=== PATIENT | female | born 1975 | race Caucasian/White ===

== ENCOUNTER 2022-09-05 15:21 | Emergency (ER) | payer OTHER, SELFPAY ==
--- NOTE | ~2022-09-05 | CT_ITS ---
EXAMINATION: CT ABDOMEN AND PELVIS WITH CONTRAST CLINICAL INFORMATION: Abdominal pain with increasing size of hernia COMPARISON: None available. TECHNIQUE: Multidetector volumetric images were obtained from the superior aspect of the liver through the pubic symphysis following administration 85 mL of Omnipaque 350 intravenous contrast. Sagittal and coronal reformatted images were obtained on the technologist's workstation. Oral contrast: No This CT examination was performed using dose optimization techniques as appropriate, variously including the following: *Automated exposure control *Adjustment of mA and/or kV according to patient size (this includes techniques or standardized protocols for targeted exams where dose is matched to indication/reason for exam; i.e. extremities or head) *Use of iterative reconstruction technique DLP: 536 mGy-cm FINDINGS: LUNG BASES: Some mosaic groundglass changes are present at the lung bases. Some minimal atelectasis is seen. No suspicious lung nodules or pleural effusions are seen. LIVER, GALLBLADDER, AND BILIARY TREE: The liver is enlarged measuring 20.6 cm in cephalocaudad dimension with decreased attenuation consistent with hepatic steatosis. A tiny benign cysts noted in the left lobe of the liver. No worrisome solid focal hepatic lesion or biliary ductal dilatation is present. The gallbladder is unremarkable with no evidence of radiopaque gallstones, gallbladder wall thickening, or obvious pericholecystic inflammatory changes. PANCREAS: Unremarkable. SPLEEN: Unremarkable. ADRENAL GLANDS: Bilateral adrenal masses are seen measuring 1.9 x 1.7 x 3.0 cm on the left and 1.8 x 1.1 x 1.3 cm on the right. These are indeterminate. KIDNEYS AND URETERS: The kidneys are normal in size, shape, and attenuation. 2 nonobstructing calculi are present in the right upper pole measuring about 2 mm in size each. Two tiny punctate nonobstructing calculi are seen in the left kidney. No hydronephrosis, hydroureter, or ureteral calculi seen. No perinephric stranding. BLADDER: Unremarkable. GASTROINTESTINAL TRACT: There is a midline epigastric/periumbilical hernia present containing a knuckle of transverse colon. No obstruction is seen or evidence of incarceration at this time. There is been prior moderately extensive abdominal wall surgery seen in this region and below. A small bowel anastomosis is present. No evidence of small bowel bowel obstruction. The small and large bowel are otherwise unremarkable. The appendix is not seen but there is no evidence of appendicitis. ABDOMINAL WALL: See discussion above regarding transverse colon LYMPH NODES: No retroperitoneal lymphadenopathy. VASCULAR: Unremarkable. PELVIC VISCERA: The uterus and adnexa are unremarkable. OSSEOUS STRUCTURES: Unremarkable. CT/CT abdomen pelvis w IV con IMPRESSION: 1. Enlarged fatty liver. 2. Bilateral indeterminate adrenal masses. Further evaluation could be performed with an adrenal protocol CT scan. 3. Bilateral nonobstructing renal calculi. 4. Midline epigastric/periumbilical hernia containing a knuckle of transverse colon without evidence of obstruction or incarceration. Fleischner guidelines were followed.
[2022-09-05 16:41] VITALS: BP 128/95; PULSE 94; RESP 16; TEMP 36.6; O2SAT 99; BMI 28.8
--- NOTE | 2022-09-05 16:42 | ED.GENADULT ---
HPI - General Adult General Chief complaint: Abdominal Pain <MARY Lee Last Filed: 09/06/22 12:02> Stated complaint: hernia in abd getting worse <MARY Lee Last Filed: 09/06/22 12:02> Time Seen by Provider: 09/05/22 18:28 <MARY Lee Last Filed: 09/06/22 12:02> Source: patient <MARY Rg Last Filed: 09/05/22 21:19> Mode of arrival: ambulatory <MARY Rg Last Filed: 09/05/22 21:19> Limitations: no limitations <MARY Rg Last Filed: 09/05/22 21:19> History of Present Illness HPI narrative: 46-year-old female history of small-bowel obstruction, umbilical hernia presenting to the emergency department for evaluation of painful umbilical hernia since this morning with associated nausea. Patient reports severe 10/10 pain to the umbilical hernia and it radiates to the left lower quadrant. Patient tells me she is scheduled to get hernia surgery in September at [facility] however was told to go to the emergency room if symptoms worsen beforehand. Patient reports multiple abdominal surgeries in the past. Denies fevers, chills, chest pain, shortness of breath, vomiting, changes in bowel habits or urination, headache, vision changes, dizziness and weakness. <MARY Rg Last Filed: 09/05/22 21:19> Related Data Allergies/adverse reactions: Allergies Allergy/AdvReac Type Severity Reaction Status Date / Time Penicillins [PENICILLINS] Allergy Unknown HIVES Unverified 02/28/20 16:39 tramadol [TRAMADOL] Allergy Unknown VOMITING Unverified 02/28/20 16:39 ibuprofen [IBUPROFEN] AdvReac Unknown NAUSEA & Unverified 02/28/20 16:39 VOMITING <MARY Lee Last Filed: 09/06/22 12:02> Review of Systems Review of Systems: Constitutional : No Weight loss, No Fever, No Chills, No Fatigue, No Malaise ENT/Mouth : No sore throat, No Rhinorrhea Eyes: No Eye Pain, No Swelling, No Redness Cardiovascular : No Chest Pain, No SOB, No Dyspnea on Exertion, No Orthopnea, No Edema, No Palpitations Respiratory : No Cough, No Sputum, No Wheezing Gastrointestinal : No Nausea, No Vomiting, No Diarrhea, No Constipation, + abdominal Pain, No Hematochezia, No Melena Genitourinary : No Dysuria, No Urinary Frequency, No Hematuria, Musculoskeletal : No joint pain, No Myalgias, No Joint Swelling Skin : No Skin Lesions, No rash Neuro : No Weakness, No Numbness, No Dizziness, No Headache Psych : No Anxiety/Panic, No Depression All other systems reviewed and are negative <MARY Rg - Last Filed: 09/05/22 21:19> Yes all other systems are reviewed and are negative <MARY Rg - Last Filed: 09/05/22 21:19> [facility] Past Medical History Attestation statement: The following information was validated with the patient. <MARY Rg - Last Filed: 09/05/22 21:19> Source: old records reviewed and nursing notes reviewed <MARY Rg - Last Filed: 09/05/22 21:19> Social History Social History: Social History Alcohol intake: never Smoked in Last 30 Days: No Use of substances other than those prescribed or required for medical reasons: No Advance Directives: No Advance Directives Information Provided: Yes <MARY Lee - Last Filed: 09/06/22 12:02> Physical Exam ED Vital Signs: Vital Signs - 24 hr 09/05/22 16:41 Temperature 97.9 F Pulse Rate 94 Respiratory Rate 16 Blood Pressure 128/95 H Pulse Oximetry 99 Oxygen Delivery Method Room Air BMI result Body Mass Index 28.8 <MARY Lee - Last Filed: 09/06/22 12:02> Vital Signs - 24 hr 09/05/22 16:41 Temperature 97.9 F Pulse Rate 94 Respiratory Rate 16 Blood Pressure 128/95 H Pulse Oximetry 99 Oxygen Delivery Method Room Air BMI result Body Mass Index 28.8 vss <MARY Rg - Last Filed: 09/05/22 21:19> Appearance: Alert.? Oriented X3.? No acute distress.? Head: Normocephalic, atraumatic, no step-offs or deformities Eyes: Pupils equal, round and reactive to light.? Neck: Normal inspection.? Neck supple.? CVS: Normal heart rate and rhythm.? Pulses normal.? Respiratory: No respiratory distress.? Breath sounds normal.? Abdomen: Soft and.?+ TTP to umbilical hernia, no overlying skin changes. Also tenderness to left lower quadrant. Normoactive bowel sounds. Skin: Skin warm and dry.? Normal skin color.? Normal skin turgor.? Extremities: No lower extremity edema.? No calf ttp. 5/5 strength to bilateral upper and lower extremities Back: No midline tenderness, no C-spine tenderness, full range of motion, no CVA tenderness bilaterally Neuro: Oriented X 3.? No motor deficit.? No sensory deficit. CN 2-12 intact <MARY Rg - Last Filed: 09/05/22 21:19> Course Course Course Narrative: RME: 46 yold female presents to the ED for increase size and pain of abdominal hernia. pmh of SBO and umbilical hernia. [facility] for surgery september 17 but has pain and hernia increased in size so patinet came to ED. abdominal umbilical hernia large in size and tenderness. labs and Abdomen CT scan orderd with IV. Charge nurse Nubia informed next availability for bed so patient can have imaging. labs and imagin ordered <MARY Lee - Last Filed: 09/06/22 12:02> Reevaluation(s) Reevaluation #1: CBC within normal limits. Chemistry unremarkable. HCG negative. Lactic acid normal. Coags within normal limits. CT of the abdomen and pelvis within the large fatty liver. Bilateral indeterminate adrenal masses. Bilateral nonobstructing renal stones. Midline epigastric periumbilical hernia containing a knuckle of transverse colon without evidence of obstruction or incarceration. I was able to reduce the hernia with downward pressure without difficulty. Patient did request pain medicine gave morphine and she is feeling much better. No signs of incarceration or strangulation this does not require immediate surgical intervention. Patient is comfortable and hemodynamically stable will discharge home with outpatient provider follow-up and patient can follow-up with her general surgeon. <MARY Rg - Last Filed: 09/05/22 21:19> Time: 20:41 <MARY Rg - Last Filed: 09/05/22 21:19> Reevaluation #2: Dr. Conti evaluated patient and agrees w/ dx and tx plan. <MARY Rg - Last Filed: 09/05/22 21:19> Time: 21:18 <MARY Rg - Last Filed: 09/05/22 21:19> Medications Administered Discontinued Medications Generic Name Dose Route Start Last Admin Trade Name Freq PRN Reason Stop Dose Admin Iohexol 100 ml 09/05/22 18:56 09/05/22 18:57 Iohexol 350 Mg/Ml 100 Ml Infus..Btl IV 09/05/22 18:57 85 ml ONCE ONE Administration Ketorolac Tromethamine 30 mg 09/05/22 21:17 09/05/22 21:23 Ketorolac Tromethamine 15 Mg/Ml Vial IM 09/05/22 21:18 30 mg ONCE ONE Administration Morphine Sulfate 4 mg 09/05/22 19:44 09/05/22 19:49 Morphine Sulfate 4 Mg/Ml Cartridge IVPUSH 09/05/22 19:45 4 mg ONCE ONE Administration Protocol Ondansetron HCl 4 mg 09/05/22 19:44 09/05/22 19:49 Ondansetron Hcl 4 Mg/2 Ml Vial IVPUSH 09/05/22 19:45 4 mg ONCE ONE Administration <MARY Lee - Last Filed: 09/06/22 12:02> Medications Administered Discontinued Medications Generic Name Dose Route Start Last Admin Trade Name Freq PRN Reason Stop Dose Admin Iohexol 100 ml 09/05/22 18:56 09/05/22 18:57 Iohexol 350 Mg/Ml 100 Ml Infus..Btl IV 09/05/22 18:57 85 ml ONCE ONE Administration Ketorolac Tromethamine 30 mg 09/05/22 21:17 09/05/22 21:23 Ketorolac Tromethamine 15 Mg/Ml Vial IM 09/05/22 21:18 30 mg ONCE ONE Administration Morphine Sulfate 4 mg 09/05/22 19:44 09/05/22 19:49 Morphine Sulfate 4 Mg/Ml Cartridge IVPUSH 09/05/22 19:45 4 mg ONCE ONE Administration Protocol Ondansetron HCl 4 mg 09/05/22 19:44 09/05/22 19:49 Ondansetron Hcl 4 Mg/2 Ml Vial IVPUSH 09/05/22 19:45 4 mg ONCE ONE Administration <MARY Rg - Last Filed: 09/05/22 21:19> Medical Decision Making Medical Decision Making [facility] Narrative: 1836 46-year-old female presents with pain overlying umbilical hernia since this morning with associated nausea. Physical exam significant for TTP to umbilical hernia, no overlying skin changes. Also tenderness to left lower quadrant. Normoactive bowel sounds. Concerns for possible strangulated umbilical hernia. Will rule out diverticulitis and small bowel obstruction. Unlikely that this is an acute abdomen, pancreatitis, cholecystitis or appendicitis. Plan at this time labs, imaging, urine. <MARY Rg - Last Filed: 09/05/22 21:19> Differential Diagnosis Differential Diagnoses: The differential diagnosis associated with the presentation includes <MARY Rg - Last Filed: 09/05/22 21:19> Concerns for possible strangulated umbilical hernia. Will rule out diverticulitis and small bowel obstruction. Unlikely that this is an acute abdomen, pancreatitis, cholecystitis or appendicitis <MARY Rg - Last Filed: 09/05/22 21:19> Admission/Observation Consideration of admission/observation: Escalation of care including admission/observation considered <MARY Rg - Last Filed: 09/05/22 21:19> Unlikely <MARY Rg - Last Filed: 09/05/22 21:19> Lab Data [facility] Lab Attestation statement: I reviewed the patient's lab results. <MARY Rg - Last Filed: 09/05/22 21:19> Result Diagrams: 09/05/22 17:15 09/05/22 17:15 <MARY Lee - Last Filed: 09/06/22 12:02> Labs: Lab Results 09/05/22 09/05/22 09/05/22 Range/Units 17:15 17:15 17:15 WBC 8.9 (4.8-10.8) X10*3/uL RBC 4.73 (4.20-5.50) X10*6/uL Hgb 14.2 (12.0-16.0) g/dl Hct 41.8 (37.0-47.0) % MCV 88.4 (80.0-98.0) fL MCH 30.0 (27.0-33.0) pg MCHC 34.0 (31.0-35.0) g/dl RDW 12.7 (11.0-16.0) % Plt Count 293 (160-400) X10*3/uL MPV 10.5 (9.4-12.3) fL Immature Gran % (Auto) 1.1 H (0.0-0.4) % Neut % (Auto) 58.1 (45-73) % Lymph % (Auto) 29.8 (20-40) % [place] % (Auto) 8.7 (2-11) % Eos % (Auto) 1.3 (0-4) % Baso % (Auto) 1.0 (0-2) % Lymph # (Auto) 2.7 (1.2-4.9) X10*3/uL [place] # (Auto) 0.8 (0.1-1.2) X10*3/uL Eos # (Auto) 0.1 (0.0-0.4) X10*3/uL Baso # (Auto) 0.1 (0.0-0.2) X10*3/uL Abs Immat Gran (auto) 0.10 H (0.00-0.03) X10*3/uL Absolute Neuts (auto) 5.2 (2.0-8.3) x10*3/uL Absolute Nucleated RBC 0.000 (0.0-0.012) X10*3/uL Nucleated RBC % (auto) 0.0 (0.0-0.2) /100WBC PT 11.5 (10.0-13.1) SEC INR 1.0 (0.9-1.1) APTT 29.6 (26.0-36.4) SEC Sodium 136 (135-145) mmol/L Potassium 4.1 (3.3-5.1) mmol/L Chloride 101 (96-108) mmol/L Carbon Dioxide 24 (22-29) mmol/L Anion Gap 15 (12-20) BUN 16 (9-16) mg/dL Creatinine 0.76 (0.5-1.4) mg/dL Estim Creat Clear Calc 94.4 Estimated GFR > 60 Random Glucose 188 H (60-115) mg/dL Lactic Acid (0.5-2.0) mmol/L Calcium 9.9 (8.4-10.2) mg/dL Total Bilirubin 0.6 (0.0-1.0) mg/dL AST 10 (5-31) U/L ALT 9 (0-31) U/L Alkaline Phosphatase 50 (39-117) U/L Total Protein 8.2 H (6.5-8.0) g/dL Albumin 4.8 (3.5-5.0) g/dL Beta HCG, Quant < 2 mIU/mL 09/05/22 Range/Units 17:15 WBC (4.8-10.8) X10*3/uL RBC (4.20-5.50) X10*6/uL Hgb (12.0-16.0) g/dl Hct (37.0-47.0) % MCV (80.0-98.0) fL MCH (27.0-33.0) pg MCHC (31.0-35.0) g/dl RDW (11.0-16.0) % Plt Count (160-400) X10*3/uL MPV (9.4-12.3) fL Immature Gran % (Auto) (0.0-0.4) % Neut % (Auto) (45-73) % Lymph % (Auto) (20-40) % [place] % (Auto) (2-11) % Eos % (Auto) (0-4) % Baso % (Auto) (0-2) % Lymph # (Auto) (1.2-4.9) X10*3/uL [place] # (Auto) (0.1-1.2) X10*3/uL Eos # (Auto) (0.0-0.4) X10*3/uL Baso # (Auto) (0.0-0.2) X10*3/uL Abs Immat Gran (auto) (0.00-0.03) X10*3/uL Absolute Neuts (auto) (2.0-8.3) x10*3/uL Absolute Nucleated RBC (0.0-0.012) X10*3/uL Nucleated RBC % (auto) (0.0-0.2) /100WBC PT (10.0-13.1) SEC INR (0.9-1.1) APTT (26.0-36.4) SEC Sodium (135-145) mmol/L Potassium (3.3-5.1) mmol/L Chloride (96-108) mmol/L Carbon Dioxide (22-29) mmol/L Anion Gap (12-20) BUN (9-16) mg/dL Creatinine (0.5-1.4) mg/dL Estim Creat Clear Calc Estimated GFR Random Glucose (60-115) mg/dL Lactic Acid 1.3 (0.5-2.0) mmol/L Calcium (8.4-10.2) mg/dL Total Bilirubin (0.0-1.0) mg/dL AST (5-31) U/L ALT (0-31) U/L Alkaline Phosphatase (39-117) U/L Total Protein (6.5-8.0) g/dL Albumin (3.5-5.0) g/dL Beta HCG, Quant mIU/mL <MARY Lee - Last Filed: 09/06/22 12:02> Lab Results 09/05/22 09/05/22 09/05/22 Range/Units 17:15 17:15 17:15 WBC 8.9 (4.8-10.8) X10*3/uL RBC 4.73 (4.20-5.50) X10*6/uL Hgb 14.2 (12.0-16.0) g/dl Hct 41.8 (37.0-47.0) % MCV 88.4 (80.0-98.0) fL MCH 30.0 (27.0-33.0) pg MCHC 34.0 (31.0-35.0) g/dl RDW 12.7 (11.0-16.0) % Plt Count 293 (160-400) X10*3/uL MPV 10.5 (9.4-12.3) fL Immature Gran % (Auto) 1.1 H (0.0-0.4) % Neut % (Auto) 58.1 (45-73) % Lymph % (Auto) 29.8 (20-40) % [place] % (Auto) 8.7 (2-11) % Eos % (Auto) 1.3 (0-4) % Baso % (Auto) 1.0 (0-2) % Lymph # (Auto) 2.7 (1.2-4.9) X10*3/uL [place] # (Auto) 0.8 (0.1-1.2) X10*3/uL Eos # (Auto) 0.1 (0.0-0.4) X10*3/uL Baso # (Auto) 0.1 (0.0-0.2) X10*3/uL Abs Immat Gran (auto) 0.10 H (0.00-0.03) X10*3/uL Absolute Neuts (auto) 5.2 (2.0-8.3) x10*3/uL Absolute Nucleated RBC 0.000 (0.0-0.012) X10*3/uL Nucleated RBC % (auto) 0.0 (0.0-0.2) /100WBC PT 11.5 (10.0-13.1) SEC INR 1.0 (0.9-1.1) APTT 29.6 (26.0-36.4) SEC Sodium 136 (135-145) mmol/L Potassium 4.1 (3.3-5.1) mmol/L Chloride 101 (96-108) mmol/L Carbon Dioxide 24 (22-29) mmol/L Anion Gap 15 (12-20) BUN 16 (9-16) mg/dL Creatinine 0.76 (0.5-1.4) mg/dL Estim Creat Clear Calc 94.4 Estimated GFR > 60 Random Glucose 188 H (60-115) mg/dL Lactic Acid (0.5-2.0) mmol/L Calcium 9.9 (8.4-10.2) mg/dL Total Bilirubin 0.6 (0.0-1.0) mg/dL AST 10 (5-31) U/L ALT 9 (0-31) U/L Alkaline Phosphatase 50 (39-117) U/L Total Protein 8.2 H (6.5-8.0) g/dL Albumin 4.8 (3.5-5.0) g/dL Beta HCG, Quant < 2 mIU/mL 09/05/22 Range/Units 17:15 WBC (4.8-10.8) X10*3/uL RBC (4.20-5.50) X10*6/uL Hgb (12.0-16.0) g/dl Hct (37.0-47.0) % MCV (80.0-98.0) fL MCH (27.0-33.0) pg MCHC (31.0-35.0) g/dl RDW (11.0-16.0) % Plt Count (160-400) X10*3/uL MPV (9.4-12.3) fL Immature Gran % (Auto) (0.0-0.4) % Neut % (Auto) (45-73) % Lymph % (Auto) (20-40) % [place] % (Auto) (2-11) % Eos % (Auto) (0-4) % Baso % (Auto) (0-2) % Lymph # (Auto) (1.2-4.9) X10*3/uL [place] # (Auto) (0.1-1.2) X10*3/uL Eos # (Auto) (0.0-0.4) X10*3/uL Baso # (Auto) (0.0-0.2) X10*3/uL Abs Immat Gran (auto) (0.00-0.03) X10*3/uL Absolute Neuts (auto) (2.0-8.3) x10*3/uL Absolute Nucleated RBC (0.0-0.012) X10*3/uL Nucleated RBC % (auto) (0.0-0.2) /100WBC PT (10.0-13.1) SEC INR (0.9-1.1) APTT (26.0-36.4) SEC Sodium (135-145) mmol/L Potassium (3.3-5.1) mmol/L Chloride (96-108) mmol/L Carbon Dioxide (22-29) mmol/L Anion Gap (12-20) BUN (9-16) mg/dL Creatinine (0.5-1.4) mg/dL Estim Creat Clear Calc Estimated GFR Random Glucose (60-115) mg/dL Lactic Acid 1.3 (0.5-2.0) mmol/L Calcium (8.4-10.2) mg/dL Total Bilirubin (0.0-1.0) mg/dL AST (5-31) U/L ALT (0-31) U/L Alkaline Phosphatase (39-117) U/L Total Protein (6.5-8.0) g/dL Albumin (3.5-5.0) g/dL Beta HCG, Quant mIU/mL <MARY Rg - Last Filed: 09/05/22 21:19> Independent Interpretation I performed an independent interpretation of an: CT Scan (CT/CT abdomen pelvis w IV con IMPRESSION: 1. Enlarged fatty liver. 2. Bilateral indeterminate adrenal masses. Further evaluation could be performed with an adrenal protocol CT scan. 3. Bilateral nonobstructing renal calculi. 4. Midline epigastric/periumbilical hernia containing a knuckle of jeff) <MARY Rg - Last Filed: 09/05/22 21:19> Radiology Impression Discussion of test interpretation with radiology: I have reviewed the radiologist's reading. <MARY Rg - Last Filed: 09/05/22 21:19> Core Measures AMI core measures followed: Yes <MARY Rg - Last Filed: 09/05/22 21:19> Measure exclusions: not indicated <MARY Rg - Last Filed: 09/05/22 21:19> Critical Care Time Critical Care Time Critical Care Time: No <MARY Rg - Last Filed: 09/05/22 21:19> Discharge Plan Discharge Clinical Impression: Abdominal pain, Periumbilical hernia, Adrenal mass <MARY Lee Last Filed: 09/06/22 12:02> Patient Disposition: Home, Self-Care <MARY Lee - Last Filed: 09/06/22 12:02> Instructions: Umbilical Hernia (ED), Abdominal Pain (ED), Umbilical Hernia Repair (DC) <MARY Lee Last Filed: 09/06/22 12:02> Additional Instructions: Take your medications as prescribed. If you were prescribed antibiotics today, it is important that you take your medication to their entirety, do not skip any doses, do not finish them early. Follow-up with your primary care provider this week. Please follow-up with your general surgeon. Return to the emergency department with new or worsening symptoms. Such as fevers, chills, chest pain, shortness of breath, nausea, vomiting, dizziness, headache, vision changes, lethargy In case of emergency call 911 CT/CT abdomen pelvis w IV con IMPRESSION: 1. Enlarged fatty liver. 2. Bilateral indeterminate adrenal masses. Further evaluation could be performed with an adrenal protocol CT scan. 3. Bilateral nonobstructing renal calculi. 4. Midline epigastric/periumbilical hernia containing a knuckle of transverse colon without evidence of obstruction or incarceration. Fleischner guidelines were followed. <MARY Lee - Last Filed: 09/06/22 12:02> Referrals: [facility] General [facility]geons [Provider Group] - 2 days Physician,Unknown J [Primary Care Provider] - 2 days <MARY Lee - Last Filed: 09/06/22 12:02> Stand Alone Forms: Work/School Release <MARY Lee - Last Filed: 09/06/22 12:02> Interventions: ED Discharge Assessment Last Done: 09/05/22 21:34 <MARY Lee - Last Filed: 09/06/22 12:02> Discharge Date/Time: 09/05/22 21:36 <MARY Lee - Last Filed: 09/06/22 12:02>
[2022-09-05 17:19] LABS: MANUAL DIFF FLAG NO
--- OUTSIDE RECORDS SUMMARY | 2022-09-05 17:19 | XMS_ITS | Continuity of Care Document ---
Author Name Unknown Organization [facility] Address [address] [place] [id number] Care Team Providers Care Airline Pilot Name Role Phone Simon MON[place], Ericka Mac Primary Care Physician Encounter [facility] Date(s): 02/11/21 - 03/13/21 [facility] [address] [place], [place] [id number] Allergies, Adverse Reactions, Alerts Substance Reaction Severity Status penicillin Hives Active aspirin Very Nauseaus Active Immunizations Given and Recorded Vaccine Date Status Refusal Reason tetanus/diphtheria/pertussis, acel(Tdap) 1 06/13/07 Given 1Admin Note: RECORD Medications barium sulfate 2.1% oral suspension See Instructions, Drink first bottle 6 hours before exam. Drink second bottle 90 minutes before exam, # 2 bottle, 0 Refills, Maintenance, 08/01/15 9:32:48 Start Date: 08/01/15 Status: Ordered CeleXA 20 mg oral tablet 20 mg, 1, tablet, By Mouth, Daily, Refills 0, Maintenance, 01/28/17 10:21:34 Start Date: 01/28/17 Status: Ordered Readi-Cat 2 oral suspension See Instructions, Oral Contrast 2 Bottles 450 ml each Dx: Hernia, # 900 mL, 0 Refills, Maintenance,01/28/17 16:39:44, Oral Contrast; 2 Bottles 450 ml each; Dx: Hernia Start Date: 01/28/17 Status: Ordered Problem List Condition Effective Dates Status Health Status Inform ant Anxiety depression(Confirmed) Active Obesity(Confirmed) Active Seroma(Confirmed) Active Social History Social History Type Response Smoking Status Current every day emilie robins entered on: 08/01/15 Sex
--- OUTSIDE RECORDS SUMMARY | 2022-09-05 17:19 | XMS_ITS | Continuity of Care Document ---
Author Name Unknown Organization [facility] ter Address [address] [place] [id number] Care Team Providers Care Welder Assistant Name Role Phone Not on Staff, PCP Primary Care Physician Unavail able Encounter [facility] Date(s): 08/12/22 - 08/12/[address] [address]- Encounter Diagnosis Ventral hernia(Final) - 08/12/22 Abdominal pain(Final) - 08/12/22 Discharge Disposition: A-D/C AMA Attending Physician: Neli Noland MD Admitting Physician: Neli Noland MD Referring Physician: Not on Staff, Referring MD Allergies, Adverse Reactions, Alerts Substance Reaction Severity Status penicillin Hives Active aspirin Very Nauseaus Active Immunizations Given and Recorded Vaccine Date Status Refusal Reason tetanus/diphtheria/pertussis, acel(Tdap) 1 06/13/07 Given 1Admin Note: RECORD Medications Compression Stockings See Instructions, # 2 each, Maintenance, surgical, knee length 20-30 mm Hg, 12/07/21 10:47:00 EDT, Supply Start Date: 12/07/21 Status: Ordered Dilaudid Inj 0.5 mg, Injection, IV Push Slowly, Every 4 hours, PRN for Pain , Severe, Routine, 08/12/22 4:27:00 EST Start Date: 08/12/22 Stop Date: 08/12/22 Status: Discontinued gabapentin 100 mg oral capsule 200 mg, 2, capsule, By Mouth, 3 times a day, # 60 capsule, Refills 0, Tot. Refills 0, Maintenance, 04/22/22 15:41:00 EST, Route to Pharmacy Electronically, [id number], Partial fill upon patient request if the prescription is for a rex... Start Date: 04/22/22 Stop Date: 05/02/22 Status: Ordered Janumet XR 50 mg-1000 mg oral tablet, extended release 1 tablet, By Mouth, Daily in PM, # 30 tablet, 0 Refills, Maintenance, 10/15/21 11:30:00 EDT, ER Tablet, Partial fill upon patient request if the prescription is for a schedule II opioid drug. Start Date: 10/15/21 Status: Ordered MorPHINE Inj 4 mg, Injection, IV Push Slowly, Every 5 minutes for 3 doses/times, PRN for Pain , Moderate, and SBP greater than 100, Routine, 08/12/22 2:35:00 EST, Stop date Limited # of times Start Date: 08/12/22 Stop Date: 08/12/22 Status: Discontinued topiramate 25 mg oral tablet 0 Refills, Maintenance, 08/12/22 4:20:00 EST, Partial fill upon patient request if the prescriptionis for a schedule II opioid drug. Start Date: 08/12/22 Status: Ordered Problem List Condition Confirmation Course Effective Dates Status Health St atus Informant Anxiety depression Confirmed Active Obesity Confirmed Active Seroma Confirmed Active Results Radiology Reports * Exam Date Time Procedure Performing Provider Status 08/12/22 1:[address] Abd/Pelvis W/ IV Contrast Only Trudy Chavez; Cha (Verified) Notes: (CT Abd/Pelvis W/ IV Contrast Only) Reason For Exam: AP, can't reduce hernia;Other: RESULT: CT Abd/Pelvis W/ IV Contrast Only CT Abd/Pelvis W/ IV Contrast Only INDICATION: Pt reports that she was seen here a few days ago for a hernia and they were able to reduce it, states it recurred yesterday and she has been unable to reduce it at home, pain 9/10. Last BM yesterday, no N V; Clinical Question(s): Obstruction; hernia TECHNIQUE: Spiral CT through the abdomen and pelvis with IV contrast formatted in 3 planes. 100 cc of Omnipaque 300 was administered intravenously. This study was performed without oral contrast. Weight-based protocol using automatic tube modulation was used to optimize exposure parameters. CTDIvol Body: 18.30 mGy, DLP Body: 1012 mGy*cm. COMPARISON: 08/06/2022. FINDINGS: Junior Database Administrator View Findings, Lines and Tubes: None. Visualized Chest: Unchanged mosaic attenuation of the lower lobes. No pleural effusion. The heart is normal in size. No pericardial effusion. Diaphragm: Normal. Liver: Hepatomegaly measuring 19 cm mid clavicular line. Borderline hepatic steatosis. Unchanged subcentimeter hypodensity in the left hepatic lobe, too small to characterize. Gallbladder: No CT evidence of gallbladder pathology. Bile ducts: No biliary ductal dilation. Spleen: Normal. Pancreas: Normal. Adrenal glands: Unchanged bilateral adrenal nodules measuring up to 1.7 cm. Kidneys and ureters: Unchanged bilateral nonobstructing renal calculi measuring up to 0.2 cm in theright upper pole. No hydronephrosis or hydroureter. Bladder: Underdistended. Reproductive organs: Unremarkable CT appearance of the uterus and ovaries. Stomach, small bowel, and large bowel: Unremarkable small bowel anastomotic site in the anterior abdomen. No bowel obstruction. Multiple small bowel loops contain fluid but nondilated, nonspecific. Fecal material within the distal ileum, likely due to an incompetent ileocecal valve. Apparent 1.6 cm polyp in the hepatic flexure of colon. Antimesenteric wall of the transverse colon again protrudes into the midline supraumbilical incisional hernia. Moderate stool burden. Appendix: Normal. Peritoneum and retroperitoneum: Trace fluid in the left adnexa, likely physiologic. Trace mesenteric fluid, nonspecific. No pneumoperitoneum. No omental or mesenteric lesions. Lymph nodes: No enlarged lymph nodes. Blood vessels: Normal. No aneurysm. No evidence of venous thrombosis. Abdominal and pelvic wall: Midline anterior incisional hernia containing antimesenteric wall of thetransverse colon as above above. Hernia neck measures approximately 2.6 x 2.0 cm on current exam. Infraumbilical ventral hernia repair mesh in place. Mild edema around the umbilicus, unchanged Bones: No acute abnormality. IMPRESSION: Recurrent supraumbilical incisional hernia containing antimesenteric wall of the transverse colon (Verma hernia) without evidence of obstruction. Apparent 1.6 cm polyp in the hepatic flexure colon. Correlate with a recent colonoscopy is recommended. Other chronic findings are unchanged as above. I have personally reviewed the images and I agree with this report. WSN: [id number] Ordering Physician: Cesar Wooten Dictated By: Carey Sage DO Dictated Date/Time: 08/12/22 7:56 am Reviewed By: Demian Hall MD Signed By: Demian Hall MD Signed Date/Time: 08/12/22 8:01 am Transcribed By: BEBO Transcribed Date/Time: 08/12/22 4:48 am Vital Signs Most recent to oldest [Reference Range]: 1 2 3 Weight 78 kg (08/12/22 5:27 AM) 78 kg (08/12/22 3:29 AM) 78 kg (08/11/22 9:20 PM) Oxygen Saturation [94-100 %] 95 % (08/12/22 5:27 AM) 98 % (08/12/22 3:29 AM) 98 % (08/12/22 2:00 AM) Pulse Rate [55-90 bpm] 71 bpm (08/12/22 5:27 AM) 79 bpm (08/12/22 3:29 AM) 88 bpm (08/12/22 2:00 AM) Blood Pressure [90-138/55-84 mm Hg] 118/70mm Hg (08/12/22 5:27 AM) 115/69mm Hg (08/12/22 3:29 AM) 121/80mm Hg (08/12/22 2:00 AM) Respiratory Rate [16-30 br/min] 18 br/min (08/12/22 7:06 AM) 20 br/min (08/12/22 5:27 AM) 18 br/min (08/12/22 4:07 AM) Temperature [96.8-100.4 DegF] 98.8 DegF (08/12/22 5:27 AM) 98.8 DegF (08/12/22 3:29 AM) 98.1 DegF (08/12/22 2:00 AM) Mode of Delivery (Oxygen) Room air (08/12/22 5:27 AM) Room air (08/12/22 3:29 AM) Room air (08/12/22 2:00 AM) Blood pressure sites Arm, right (08/12/22 5:27 AM) Arm, right (08/12/22 3:29 AM) Arm, left (08/12/22 2:00 AM) Temperature Route Oral (08/12/22 5:27 AM) Oral (08/12/22 3:29 AM) Oral (08/12/22 2:00 AM) Weight Obtained Via Patient/family state d (08/11/22 9:20 PM) Social History Social History Type Response Smoking Status 5-9 cigarettes (betw een 1/4 to 1/2 pack)/day in last 30 days; Interested in cessation: Yes; Patient wants NRT during admission No entered on: 08/07/22 Sex Admission evaluation note * Rosa Almazan MD: PERFORM Event Display: Admission Note Authored Date: [id number] Patient: ??SABA QUESADA ? Age:??46 Years?Sex:??Female?:??1975?? Chief Complaint Consulting Physician: Dr. Mayorga Consulted Surgeon: Dr. Noland Consulting Reason: Ventral Hernia History of Present Illness Patient is a 46-year-old with a history of anxiety, depression, obesity and diabetes as well as multiple previous abdominal surgeries including 4 C- sections, laparoscopic lysis of adhesions with ventral hernia repair, and most recently in March 2022 exploratory laparotomy and small bowel resection for closed-loop small bowel obstruction. ??Patient was recently??hospitalized with??abdominal painwith CT scan evidence of a??supraumbilical ventral hernia??which she was a??p.o. trialed??and??discharged home with adequate analgesia. ??She represents again today with??2 days of severe??abdominal pain which she describes as intermittent 9/10 sharp??and twisting like??abdominal pain at the ventral hernia site. ??She reports that she has otherwise been tolerating diet without nausea or vomiting and has continued to have regular bowel movements.?However due to worsening abdominal pain she presented to [facility] for further evaluation.?Upon arrival she was noted to be??clinically and hemodynamically normal although she was having excruciating??abdominal pain. ??Laboratorywork-up obtained revealed no leukocytosis with otherwise unremarkable electrolytes and no lactic acidemia. ??She was further worked up??with CT abdomen pelvis which reveals??no significant changes compared to the previous CT scan on 08/06??with the same supraumbilical ventral hernia with??antimesenteric wall of the transverse colon.?? Due to clinical presentation and radiographic findings, acute care surgery was consulted for further evaluation.?? Patient seen and evaluated, appears??clinically well,??pain relatively??better status post??analgesia administration by the ED team.?? She collaborates the above HPI and denies any??chest pain, shortness of breath, fevers or chills.?? On exam, she has a reducible ventral hernia??which is tender to palpation??status post reduction.?? There is palpable approximately 2 cm fascial defect??and no overlying skin changes.?? There is a well-healed??midline incision??scar.?? The rest of the abdomen is soft??nondistended and nontender to palpation.?? Complete physical exam was done and is documented below. Review of Systems Review of system negative except as documented above. Physical Exam Vitals & Measurements T:??98.8?F ?? MS:??79?? RR:??18?? BP:??115/69?? SpO2:??98%?? WT:??78??kg?? Constitutional: Alert, in no distress. Mental Status: Oriented to person, place and time. Head: Normocephalic. Eyes: Pupils are equal, round and reactive to light. Extraocular muscles intact. Ear, Nose and Throat: Oropharynx clear, mucous membranes moist. Ears and nose without masses, lesions or deformities. Trachea midline. Neck: Supple, Full range of motion. Respiratory: Clear to auscultation. No wheezing, rales or rhonchi. Cardiovascular: S1 S2 regular. No murmurs, rubs or gallops. Gastrointestinal: Abdomen is soft, nondistended, notable??reducible ventral hernia??which is tenderto palpation??status post reduction.??There is palpable 2 cm fascial defect??and no overlying skin changes.?? There is a well- healed??midline incision??scar.?? Genitourinary: No costovertebral angle tenderness. Neurologic: Cranial nerves II-XII grossly intact. No focal neurological deficits. Flexor plantar response. Moves all extremities spontaneously. Sensation intact bilaterally. Skin: No rashes or lesions. No petechiae or purpura.?? Musculoskeletal: No cyanosis or clubbing. No gross deformities. Normal range of motion. Heme/Lymphatics/Immun: Palpation of neck reveals no swelling or tenderness of neck nodes. Palpationof groin reveals no swelling or tenderness of groin nodes. Psychiatric: Normal mood and affect Assessment/Plan Patient is a 46-year-old with a history of anxiety, depression, obesity and diabetes as well as multiple previous abdominal surgeries including 4 C- sections, laparoscopic lysis of adhesions with ventral hernia repair, and most recently in March 2022 exploratory laparotomy and small bowel resection for closed-loop small bowel obstruction. ??Patient was recently??hospitalized with??abdominal painwith CT scan evidence of a??supraumbilical ventral hernia??which she was a??p.o. trialed??and??discharged home with adequate analgesia.?? She represented with acute onset abdominal pain??without nausea or vomiting??or signs of obstruction.?? She is clinically and hemodynamically normal, laboratory work-up revealed no leukocytosis with otherwise normal H&H and unremarkable electrolytes.?? No lactic acidemia.?? CT abdomen pelvis obtained??revealed??stable nonobstructive??supraumbilical ventral hernia containing antimesenteric wall of the transverse colon.?? Abdominal exam revealed??reducible??ventral hernia with approximately 2 cm hernia defect, persistently tender to palpation status post reduction. ??There is no overlying skin changes??and no signs of incarceration..?? At this point,??while patient is still early from??her most recent??ex lap, patient has continued to have??symptomatic??ventral hernia??that would likely necessitate??early??hernia repair.?? Patient will be admittedto acute care surgery??service??and will be made n.p.o.??with IV fluids??with plans to discuss in the morning for??possible??operative intervention??during this admission. ?? Plan Admit to EGS N.p.o. with IV fluids Adequate pain control Antiemetics as needed Insulin sliding scale Resume home medication Discussed??in a.m. for possible??VHR??open versus laparoscopic DVT prophylaxis I-S OOB ?? Discussed with attending surgeon Dr. Noland [facility] #[id number] ?? This note was accomplished using [employer] software. Despite my efforts at performing a careful andaccurate dictation, this program is prone to speech recognition errors which may result in inaccurate documentation. If clinical questions should arise, please feel free to contact me.? Problem List/Past Medical History Ongoing Anxiety depression Obesity Seroma Historical Obese class I Procedure/Surgical History Enterectomy, resection of small intestine; single resection and anastomosis: 04/10/22 Exploratory laparotomy, exploratory celiotomy with or without biopsy(s) (separate procedure): 04/10/22 delivery & tubal ligation: 2008 delivery only;: 2004 delivery only;: 2002 delivery only;: 1998 Laparoscopic-assisted CECY, incisional hernia repair with mesh, pfannenstiel incision for open CECY Home Medications Durable Medical Equipment: See Instructions, surgical, knee length 20-30 mm Hg Gabapentin: 200 mg = 2 capsule, By Mouth, 3 times a day metformin-sitagliptin: 1 tablet, By Mouth, Daily in PM Allergies aspirin??(Very Nauseaus) penicillin??(Hives) Social History Alcohol Use: Never., 08/07/2022 Use: Never., 01/28/2017 Substance Abuse Use: Never., 08/07/2022 Use: Never., 01/28/2017 Tobacco Use: 5-9 cigarettes (between 1/4 to 1/2 pack)/day in last 30 days. Interested in cessation: Yes. No, 08/07/2022 Current every day smoker, 08/01/2015 Family History Mother: Alcoholism; Bipolar disorder Father: Bipolar disorder Lab Results Labs Last 24 Hours BLOOD COUNT & DIFF ? Event Name?? Event Result?? Date/Time?? WBC 9.4 k/mm3 08/12/22 00:45:00 RBC 4.23 m/mm3 08/12/22 00:45:00 Hgb 12.7 Gm/dL 08/12/22 00:45:00 Hct 38.2 % 08/12/22 00:45:00 MCV 90.3 femtoliters 08/12/22 00:45:00 MCH 30 pg 08/12/22 00:45:00 MCHC 33.2 g/dL 08/12/22 00:45:00 Platelet Count 259 k/mm3 08/12/22 00:45:00 MPV 10.8 femtoliters 08/12/22 00:45:00 Nucleated RBC (Automated) 0 #/100 WBC'S 08/12/22 00:45:00 ? CHEM GENERAL ? Event Name?? Event Result?? Date/Time?? Sodium 135 mmol/L 08/12/22 00:26:00 Chloride 100 mmol/L 08/12/22 00:26:00 Bicarbonate Level 24 mmol/L 08/12/22 00:26:00 Anion Gap 11 08/12/22 00:26:00 Glucose Level 189 mg/dL??High 08/12/22 00:26:00 BUN 15 mg/dL 08/12/22 00:26:00 Creatinine-Blood 0.7 mg/dL 08/12/22 00:26:00 Alkaline Phosphatase 55 units/L 08/12/22 00:26:00 AST (SGOT) 13 units/L 08/12/22 00:26:00 ALT (SGPT) 9 units/L 08/12/22 00:26:00 Bilirubin, Total 0.2 mg/dL 08/12/22 00:26:00 ? Note * Jose MONTANA, Oriana Phelan: PERFORM Event Display: Discharge/Transfer Note Hospital Authored Date: Patient: ??SABA QUESADA ? Age:??46 Years?Sex:??Female?:??1975?? Admit Date Admission Date: 08/12/2022 Discharge Date 08/12/2022 Discharge Diagnoses Abdominal pain, 08/12/2022 Abdominal pain, 08/12/2022 Ventral hernia, 08/12/2022 Hospital Course In summary, Patient is a 46-year-old with a history of anxiety, depression, obesity and diabetes aswell as multiple previous abdominal surgeries including 4 C-sections, laparoscopic lysis of adhesions with ventral hernia repair, and most recently in March 2022 exploratory laparotomy and small bowel resection for closed-loop small bowel obstruction. ??Patient was recently??hospitalized with??abdominal pain with CT scan evidence of a??supraumbilical ventral hernia??which she was a??p.o. trialed??and??discharged home with adequate analgesia.?? She represented with acute onset abdominal pain??without nausea or vomiting??or signs of obstruction.?? She is clinically and hemodynamically normal,laboratory work-up revealed no leukocytosis with otherwise normal H&H and unremarkable electrolytes.?? No lactic acidemia.?? CT abdomen pelvis obtained??revealed??stable nonobstructive??supraumbilical ventral hernia containing antimesenteric wall of the transverse colon.?? Abdominal exam reveale d??reducible??ventral hernia with approximately 2 cm hernia defect, persistently tender to palpation status post reduction. ??There is no overlying skin changes??and no signs of incarceration..?? At this point,??while patient is still early from??her most recent??ex lap, patient has continued to hav e??symptomatic??ventral hernia??that would likely necessitate??early??hernia repair.?? Patient willbe admitted to acute care surgery??service??and will be made n.p.o.??with IV fluids??with plans to discuss in the morning for??possible??operative intervention??during this admission. Unfortunately, a fter being re-evaluated this morning, the patient decided to leave [place]. Objective/Physical Exam on Day of Discharge Vitals & Measurements T:??98.8?F ?? MS:??71?? RR:??18?? BP:??118/70?? SpO2:??95%?? WT:??78??kg?? General: Speaking in full sentences and in no apparent distress HEENT: Normocephalic and atraumatic Eyes: EOM, no drainage, no redness Ears: Symmetrical, no drainage Nose: Nares patent, no drainage Neck: Soft and supple, trachea midline Resp: CTA, no wheezes, no rales Cardiac: RRR, no m/g/r,?? Abdomen/ GI: softly distended, tender to umbilical region. active bowel sounds all 4 quadrants. Extremities: No edema Neurologic: alert and oriented?3. Speech is fluent. No facial droop. Intact cranial nerves II-XII; Muscle strength 5/5 in all extremities. Intact gross sensation Psychiatric: Appropriate affect and mood. Able to engage in conversation appropriately Skin: warm pale and dry?? Future Appointments Tuesday 9:20 AM EDT ?? With: Sandee MATRINEZ, Juan Diego Mcfadden Where: [facility] [address] [place] [address]- Patient Discharge Condition same as presentation Discharge Disposition Pt left AMA Procedures Performed This Visit none Inpatient Medications Medications (11) Active SCHEDULED: (5) Acetaminophen 325 mg Tablet (Tylenol 325 mg oral tablet) ??650 mg, By Mouth, Every 6 hours Docusate Sodium 100 mg Capsule (Docusate Sodium Capsule) ??100 mg 1 capsule, By Mouth, 2 times a day Heparin 5000 units/mL Inj (1 mL) (Heparin Inj) ??5,000 units 1 mL, Subcutaneous Injection, 3 times a day Insulin Lispro 100 units/mL Inj (3mL) (Insulin LISPRO Sliding Scale) ??2-10 units, Subcutaneous Injection, 3 times a day before meals Topiramate 25 mg Tablet (Topamax Tablet) ??25 mg, By Mouth, Daily at bedtime CONTINUOUS: (1) Lactated Ringers (1000 mL) Cont IV 1,000 mL (LR 1,000 mL) ??1,000 mL, IV Infusion, 125 mL/hr PRN: (5) Bisacodyl 10 mg Suppository (Bisacodyl Supp) ??10 mg 1 supp, Rectally, Daily HYDROmorphone 0.5 mg/0.5 mL Inj Syringe (Dilaudid Inj) ??0.5 mg 0.5 mL, IV Push Slowly, Every 4 hours MorPHINE 4 mg Inj Syringe (MorPHINE Inj) ??4 mg, IV Push Slowly, Every 5 minutes Ondansetron 2mg/mL Inj (2mL Vial) (Ondansetron Inj) ??4 mg, IV Push, Every 8 hours OxyCODONE 5 mg IR Tablet (oxyCODONE 5 mg oral tablet) ??5 mg, By Mouth, Every 6 hours Discharge Medications Durable Medical Equipment (Compression Stockings)?See Instructions?surgical, knee length 20-30 mm Hg Gabapentin (gabapentin 100 mg oral capsule)?200?Milligram?2?capsule?By Mouth?3 times a day?for 10?Days metformin-sitagliptin (Janumet XR 50 mg-1000 mg oral tablet, extended release)?1?tab(s)?ByMouth?Daily in PM Labs Last 24 Hours BLOOD COUNT & DIFF ? Event Name?? Event Result?? Date/Time?? WBC 9.4 k/mm3 08/12/22 00:45:00 RBC 4.23 m/mm3 08/12/22 00:45:00 Hgb 12.7 Gm/dL 08/12/22 00:45:00 Hct 38.2 % 08/12/22 00:45:00 MCV 90.3 femtoliters 08/12/22 00:45:00 MCH 30 pg 08/12/22 00:45:00 MCHC 33.2 g/dL 08/12/22 00:45:00 Platelet Count 259 k/mm3 08/12/22 00:45:00 MPV 10.8 femtoliters 08/12/22 00:45:00 Nucleated RBC (Automated) 0 #/100 WBC'S 08/12/22 00:45:00 ? CHEM GENERAL ? Event Name?? Event Result?? Date/Time?? Sodium 135 mmol/L 08/12/22 00:26:00 Chloride 100 mmol/L 08/12/22 00:26:00 Bicarbonate Level 24 mmol/L 08/12/22 00:26:00 Anion Gap 11 08/12/22 00:26:00 Glucose Level 189 mg/dL??High 08/12/22 00:26:00 BUN 15 mg/dL 08/12/22 00:26:00 Creatinine-Blood 0.7 mg/dL 08/12/22 00:26:00 Alkaline Phosphatase 55 units/L 08/12/22 00:26:00 AST (SGOT) 13 units/L 08/12/22 00:26:00 ALT (SGPT) 9 units/L 08/12/22 00:26:00 Bilirubin, Total 0.2 mg/dL 08/12/22 00:26:00 ? CT Abdomen and Pelvis W contrast IV * [facility] , CIS S: TRANSCRIBE Demian Hall MD B: VERIFY Carey Sage DO P: SIGN Event Display: Result: Authored Date: [id number] CT Abd/Pelvis W/ IV Contrast Only INDICATION: Pt reports that she was seen here a few days ago for a hernia and they were able to reduce it, states it recurred yesterday and she has been unable to reduce it at home, pain 02/20. Last BM yesterday, no N V; Clinical Question(s): Obstruction; hernia TECHNIQUE: Spiral CT through the abdomen and pelvis with IV contrast formatted in 3 planes. 100 cc of Omnipaque 300 was administered intravenously. This study was performed without oral contrast. Weight-based protocol using automatic tube modulation was used to optimize exposure parameters. CTDIvol Body: 18.30 mGy, DLP Body: 1012 mGy*cm. COMPARISON: 08/06/2022. FINDINGS: Junior Database Administrator View Findings, Lines and Tubes: None. Visualized Chest: Unchanged mosaic attenuation of the lower lobes. No pleural effusion. The heart is normal in size. No pericardial effusion. Diaphragm: Normal. Liver: Hepatomegaly measuring 19 cm mid clavicular line. Borderline hepatic steatosis. Unchanged subcentimeter hypodensity in the left hepatic lobe, too small to characterize. Gallbladder: No CT evidence of gallbladder pathology. Bile ducts: No biliary ductal dilation. Spleen: Normal. Pancreas: Normal. Adrenal glands: Unchanged bilateral adrenal nodules measuring up to 1.7 cm. Kidneys and ureters: Unchanged bilateral nonobstructing renal calculi measuring up to 0.2 cm in theright upper pole. No hydronephrosis or hydroureter. Bladder: Underdistended. Reproductive organs: Unremarkable CT appearance of the uterus and ovaries. Stomach, small bowel, and large bowel: Unremarkable small bowel anastomotic site in the anterior abdomen. No bowel obstruction. Multiple small bowel loops contain fluid but nondilated, nonspecific. Fecal material within the distal ileum, likely due to an incompetent ileocecal valve. Apparent 1.6 cm polyp in the hepatic flexure of colon. Antimesenteric wall of the transverse colon again protrudes into the midline supraumbilical incisional hernia. Moderate stool burden. Appendix: Normal. Peritoneum and retroperitoneum: Trace fluid in the left adnexa, likely physiologic. Trace mesenteric fluid, nonspecific. No pneumoperitoneum. No omental or mesenteric lesions. Lymph nodes: No enlarged lymph nodes. Blood vessels: Normal. No aneurysm. No evidence of venous thrombosis. Abdominal and pelvic wall: Midline anterior incisional hernia containing antimesenteric wall of thetransverse colon as above above. Hernia neck measures approximately 2.6 x 2.0 cm on current exam. Infraumbilical ventral hernia repair mesh in place. Mild edema around the umbilicus, unchanged Bones: No acute abnormality. IMPRESSION: Recurrent supraumbilical incisional hernia containing antimesenteric wall of the transverse colon (Verma hernia) without evidence of obstruction. Apparent 1.6 cm polyp in the hepatic flexure colon. Correlate with a recent colonoscopy is recommended. Other chronic findings are unchanged as above. I have personally reviewed the images and I agree with this report. WSN: [id number] Ordering Physician: Cesar Wooten Dictated By: Carey Sage DO Dictated Date/Time: 08/12/22 7:56 am Reviewed By: Demian Hall MD Signed By: Demian Hall MD Signed Date/Time: 08/12/22 8:01 am Transcribed By: BEBO Transcribed Date/Time: 08/12/22 4:48 am Patient Care team information Care Team Personnel Name: Jodee Staton RN Position: [facility] RN Member Role: Primary Care Nurse Name: Rachana Arroyo RN Position: [facility] RN Member Role: Primary Care Nurse Name: Saba Pool Position: [facility] Outreach Member Role: Lifetime Consulting Physician Name: Cecilia Damon RN Position: [facility] RN Member Role: Primary Care Nurse Name: Jimena Sanchez RN Position: [facility] RN Member Role: Primary Care Nurse Name: Tressa Bahena RN Position: [facility] RN Member Role: Primary Care Nurse Name: Jeannette Ribera RN Position: [facility] RN Member Role: Primary Care Nurse Name: Not on Staff, PCP Position: [facility] Physician (General Medicine) Member Role: PCP Name: YenniKerry Andersen Attending Position: [facility] ED Medicine Name: Yecenia Rodgers RN Position: [facility] ED RN W/OE and Tasks Member Role: Patient Care Provider Name: Mireille Sumner Position: [facility] ED [facility] Care Team Related Persons Name: CHAPO FLOWER Address: [place] [address] Name: MARISELA HURLEY Address: [place] [address]
--- OUTSIDE RECORDS SUMMARY | 2022-09-05 17:19 | XMS_ITS | Continuity of Care Document ---
Author Name Unknown Organization [facility] Address [address] [place] [address]- Care Team Providers Care Wedding Decorator Name Role Phone Michael Ibrahim MD Primary Care Physician [place] [facility] [place] [id number] Date(s): 10/15/21 - 11/22/21 [facility] [address] [place] [address]- Attending Physician: Sparkle MARTINEZ, Surinder Sloan Admitting Physician: Surinder Villagran MD Referring Physician: Michael Ibrahim MD Allergies, Adverse Reactions, Alerts Substance Reaction Severity Status penicillin Hives Active aspirin Very Nauseaus Active Immunizations Given and Recorded Vaccine Date Status Refusal Reason tetanus/diphtheria/pertussis, acel(Tdap) 1 06/13/07 Given 1Admin Note: RECORD Medications Janumet XR 50 mg-1000 mg oral tablet, extended release 1 tablet, By Mouth, Daily in PM, # 30 tablet, 0 Refills, Maintenance, 10/15/21 11:30:00 EDT, ER Tablet, Partial fill upon patient request if the prescription is for a schedule II opioid drug. Start Date: 10/15/21 Status: Ordered Problem List Condition Effective Dates Status Health Status Inform ant Anxiety depression(Confirmed) Active Obesity(Confirmed) Active Seroma(Confirmed) Active Social History Social History Type Response Smoking Status Current every day emilie robins entered on: 08/01/15 Sex
--- OUTSIDE RECORDS SUMMARY | 2022-09-05 17:19 | XMS_ITS | Continuity of Care Document ---
Author Name Unknown Organization [facility] ter Address [address] [place] [address]- Care Team Providers Care Project Drilling Engineer Name Role Phone Michael Ibrahim MD [id number] - 08[facility]/[address] [address]- Encounter Diagnosis Abdominal pain(Final) - 08/19/22 Discharge Disposition: A-D/C Home Attending Physician: Cecelia Reyes MD Admitting Physician: Cecelia Reyes MD Referring Physician: Not on Staff, Referring [...] EDT, Supply Start Date: 12/07/21 Status: Ordered gabapentin 100 mg oral capsule 200 mg, 2, capsule, By Mouth, 3 times a day, # 60 capsule, Refills 0, Tot. Refills 0, Maintenance, 04/22/22 15:41:00 EST, Route to Pharmacy Electronically, [id number], Partial fill upon patient request if the [...] opioid drug. Start Date: 10/15/21 Status: Ordered morphine 15 mg oral tablet, immediate release 1 tablet = 15 mg, By Mouth, Every 4 hours, PRN as needed for pain, # 10 tablet, 0 Refills, Acute 08/24/22 12:00:00 EDT, 08/19/22 13:57:00 EST, Tablet, [facility] #[id number], Partial fill upon patient request if the prescription is for a schedule... Start Date: 08/19/22 Stop Date: 08/24/22 Status: Ordered MorPHINE Inj 4 mg, Injection, IV Push Slowly, Every 5 minutes for 3 doses/times, PRN for Pain , Moderate, and SBP greater than 100, Routine, 08/19/22 9:58:00 EST, Stop date Limited # of times Start Date: 08/19/22 Stop Date: 08/19/22 Status: Discontinued topiramate 25 mg oral tablet 0 Refills, Maintenance, 08/12/22 4:20:00 EST, Partial fill upon patient request if the prescriptionis for a schedule II opioid drug. Start Date: 08/12/22 Status: Ordered Problem List Condition Confirmation Course Effective Dates Status Health St atus Informant Anxiety depression Confirmed Active Obesity Confirmed Active Seroma Confirmed Active Vital Signs Most recent to oldest [Reference Range]: 1 2 3 Oxygen Saturation [94-100 %] 100 % (08/19/22 12:24 PM) 100 % (08/19/22 10:23 AM) 100 % (08/19/22 8:19 AM) Pulse Rate [55-90 bpm] 68 bpm (08/19/22 12:24 PM) 76 bpm (08/19/22 10:23 AM) 84 bpm (08/19/22 8:19 AM) Blood Pressure [90-138/55-84 mm Hg] 110/70mm Hg (08/19/22 12:24 PM) 119/72mm Hg (08/19/22 10:23 AM) 125/71mm Hg (08/19/22 8:19 AM) Respiratory Rate [16-30 br/min] 17 br/min (08/19/22 12:24 PM) 18 br/min (08/19/22 12:00 PM) 18 br/min (08/19/22 11:30 AM) Temperature [96.8-100.4 DegF] 98.6 DegF (08/19/22 12:24 PM) 97.9 DegF (08/19/22 10:23 AM) 98.0 DegF (08/19/22 8:19 AM) Mode of Delivery (Oxygen) Room air (08/19/22 12:24 PM) Room air (08/19/22 10:23 AM) Room air (08/19/22 8:19 AM) Blood pressure sites Arm, left (08/19/22 12:24 PM) Arm, left (08/19/22 10:23 AM) Arm, left (08/19/22 8:19 AM) Temperature Route Oral (08/19/22 12:24 PM) Oral (08/19/22 10:23 AM) Oral (08/19/22 8:19 AM) Social History Social History Type Response Smoking Status 5-9 cigarettes (betw een 1/4 to 1/2 pack)/day in last 30 days; Interested in cessation: Yes; Patient wants NRT during admission No entered on: 08/07/22 Sex Consult note * Rodrigo Rodriguez MD: PERFORM Event Display: Consult Authored Date: [id number] Patient: ??SABA QUESADA ? Age:??46 Years?Sex:??Female?:??1975?? History of Present Illness Patient is a [...] a??p.o. trialed??and??discharged home with adequate analgesia. ??She represented 2/3??with??2 days of severe??abdominal pain which she describes as intermittent 9/10 sharp??and twisting like??abdominal pain at the ventral hernia site.?At that time the patient was offered repair but because she could not go for surgery thesame day she left against medical advice with instruction to follow up in the surgical clinic for elective repair planing. She represents again today for the same abdominal pain. ??Denies fever/chills, CP/SOB, Nausea/vomiting.?Electrolytes and CBC were all normal, aside from a slightly elevated lactate. Surgery was consulted for evaluation Review of Systems Constitutional: No weight loss, fever, chills, weakness or fatigue. Eyes: No visual loss, blurred vision, double vision?? ENT: No hearing loss, sneezing, congestion, runny nose or sore throat. Respiratory: No shortness of breath, cough Cardiovascular: No chest pain, chest pressure or chest discomfort. Gastrointestinal: as per HPI. Genitourinary: No burning micturition. No urinary frequency or incontinence. Neurologic: No headache, dizziness, syncope, unilateral weakness. Musculoskeletal: No muscle pain, back pain, joint pain or stiffness. Skin: No rash or itching. Psychiatric: No depression or anxiety.?? Physical Exam Vitals & Measurements T:??97.9?F ?? ND:??76?? RR:??17?? BP:??119/72?? SpO2:??100%?? Constitutional: Awake, alert and resting in bed on arrival.?? Mental Status: Oriented to person, place and time. HEENT:??Normocephalic, atraumatic. Extraocular muscles intact. Mucous membranes moist. Trachea midline. Respiratory: Normal work of breathing. Cardiovascular: Regular rate and rhythm.?? Gastrointestinal: Abdomen soft,??none distended and??non tender. No rebound tenderness, guarding orperitonitis. Supraumbilical hernia palpated with roughly 2cm defect??with free fascial edges and small bit of fat on the inferior border of the defect but hernia feels completely reduced. ?? Neurologic: No focal neurological deficits. Moves all extremities spontaneously. Sensation intact bilaterally. Skin: Warm and well perfused. No rashes or lesions. No petechiae or purpura. Musculoskeletal: No cyanosis or clubbing. No gross deformities. Normal range of motion. Psychiatric: Normal mood and affect. Assessment/Plan Patient is a 46-year-old with a history of anxiety, depression, obesity and diabetes as well as multiple previous abdominal surgeries including 4 C- sections, laparoscopic lysis of adhesions with ventral hernia repair, and most recently in March 2022 exploratory laparotomy and small bowel resection for closed-loop small bowel obstruction. Presenting multiple times to the hospital and leaving AMAthe last time she was here. On exam there is no concern for incarcerated hernia and labs and vitalsare all normal. Patient was told to follow up at her scheduled appointment on the at the surgical clinic for elective repair. No acute surgical intervention needed. ?? Case discussed with Dr. Barnes. [place] [id number] Problem List/Past Medical History Ongoing Anxiety depression [...] 1 tablet, By Mouth, Daily in PM Topiramate Allergies aspirin??(Very Nauseaus) penicillin??(Hives) Social History Alcohol Use: Never., 08/07/2022 Use: Never., 01/28/2017 Substance Abuse Use: Never., 08/07/2022 Use: Never., 01/28/2017 Tobacco Use: 5-9 cigarettes (between 1/4 to 1/2 pack)/day in last 30 days. Interested in cessation: Yes. No, 08/07/2022 Current every day smoker, 08/01/2015 Family History Mother: Alcoholism; Bipolar disorder Father: Bipolar disorder Radiology RESULT: CT Abd/Pelvis W/ IV Contrast Only CT Abd/Pelvis W/ IV Contrast Only? INDICATION: Pt reports that she was seen here a few days ago for a hernia and they were able to reduce it, states it recurred yesterday and she has been unable to reduce it at home, pain 02/20. Last BM yesterday, no N V; Clinical Question(s): Obstruction; hernia ?? TECHNIQUE: Spiral CT through the abdomen and pelvis with IV contrast formatted in 3 planes. 100 cc of Omnipaque 300 was administered intravenously. This study was performed without oral contrast. Weight-based protocol using automatic tube modulation was used to optimize exposure parameters.? CTDIvol Body: 18.30 mGy, ??DLP Body: 1012 mGy*cm. ? COMPARISON: 08/06/2022. ?? FINDINGS:? Planning Coordinator View Findings, Lines and Tubes: None. ?? Visualized Chest: Unchanged mosaic attenuation of the lower lobes. No pleural effusion. The heart is normal in size. No pericardial effusion. ?? Diaphragm: Normal. ?? Liver: Hepatomegaly measuring 19 cm mid clavicular line. Borderline hepatic steatosis. Unchanged subcentimeter hypodensity in the left hepatic lobe, too small to characterize. ?? Gallbladder: No CT evidence of gallbladder pathology. ?? Bile ducts: No biliary ductal dilation. ?? Spleen: Normal. ?? Pancreas: Normal. ?? Adrenal glands: Unchanged bilateral adrenal nodules measuring up to 1.7 cm. ?? Kidneys and ureters: Unchanged bilateral nonobstructing renal calculi measuring up to 0.2 cm in theright upper pole. No hydronephrosis or hydroureter. ?? Bladder: Underdistended. ?? Reproductive organs: Unremarkable CT appearance of the uterus and ovaries. ?? Stomach, small bowel, and large bowel: Unremarkable small bowel anastomotic site in the anterior abdomen. No bowel obstruction. Multiple small bowel loops contain fluid but nondilated, nonspecific. Fecal material within the distal ileum, likely due to an incompetent ileocecal valve. ?? Apparent 1.6 cm polyp in the hepatic flexure of colon. Antimesenteric wall of the transverse colon again protrudes into the midline supraumbilical incisional hernia. Moderate stool burden. ?? Appendix: Normal. ?? Peritoneum and retroperitoneum: Trace fluid in the left adnexa, likely physiologic. Trace mesenteric fluid, nonspecific. No pneumoperitoneum. No omental or mesenteric lesions. ?? Lymph nodes: No enlarged lymph nodes. ?? Blood vessels: Normal. No aneurysm. No evidence of venous thrombosis. ?? Abdominal and pelvic wall: Midline anterior incisional hernia containing antimesenteric wall of thetransverse colon as above above. Hernia neck measures approximately 2.6 x 2.0 cm on current exam. Infraumbilical ventral hernia repair mesh in place. Mild edema around the umbilicus, unchanged ?? Bones: No acute abnormality. ?? IMPRESSION:? Recurrent supraumbilical incisional hernia containing antimesenteric wall of the transverse colon (Verma hernia) without evidence of obstruction. ?? Apparent 1.6 cm polyp in the hepatic flexure colon. Correlate with a recent colonoscopy is recommended. ?? Other chronic findings are unchanged as above. Lab Results Labs Last 24 Hours BLOOD COUNT & DIFF ? Event Name?? Event Result?? Date/Time?? WBC 8.3 k/mm3 08/19/22 00:34:00 RBC 4.25 m/mm3 08/19/22 00:34:00 Hgb 12.8 Gm/dL 08/19/22 00:34:00 Hct 38.2 % 08/19/22 00:34:00 MCV 89.9 femtoliters 08/19/22 00:34:00 MCH 30.1 pg 08/19/22 00:34:00 MCHC 33.5 g/dL 08/19/22 00:34:00 Platelet Count 312 k/mm3 08/19/22 00:34:00 MPV 10.6 femtoliters 08/19/22 00:34:00 Nucleated RBC (Automated) 0 #/100 WBC'S 08/19/22 00:34:00 ? CHEM GENERAL ? Event Name?? Event Result?? Date/Time?? Sodium 136 mmol/L 08/19/22 00:34:00 Chloride 99 mmol/L 08/19/22 00:34:00 Bicarbonate Level 27 mmol/L 08/19/22 00:34:00 Anion Gap 10 08/19/22 00:34:00 Glucose Level 193 mg/dL??High 08/19/22 00:34:00 BUN 14 mg/dL 08/19/22 00:34:00 Creatinine-Blood 0.7 mg/dL 08/19/22 00:34:00 Alkaline Phosphatase 58 units/L 08/19/22 00:34:00 Lipase 30 units/L 08/19/22 00:34:00 AST (SGOT) 12 units/L 08/19/22 00:34:00 ALT (SGPT) 11 units/L 08/19/22 00:34:00 Bilirubin, Total <0.2 08/19/22 00:34:00 ? Patient Care team information Care Team Personnel Name: Jodee Staton RN Position: [facility] RN Member Role: Primary Care Nurse Name: Rachana Arroyo RN Position: [facility] RN Member Role: Primary Care Nurse Name: Saba Pool Position: [facility] Outreach Member Role: Lifetime Consulting Physician Name: Cecilia Damon RN Position: [facility] RN Member Role: Primary Care Nurse Name: Jimena Sanchez RN Position: [facility] RN Member Role: Primary Care Nurse Name: Tressa Bahena RN Position: [facility] RN Member Role: Primary Care Nurse Name: Jeannette Ribera RN Position: [facility] RN Member Role: Primary Care Nurse Name: Michael Ibrahim MD Position: [facility] Outreach Member Role: PCP Address: Address: [address] [place] [address]- Name: Lindsey HUMPHREY Dwayne Position: [facility] Resident Member Role: ED Resident Address: Address: [address] [place] [address] [place] [address]- Name: Cecelia Reyes MD Position: [facility] ED Medicine MD Member Role: Admitting Physician Address: Address: [address] [place] [address] Name: Gricelda Stack RN Position: [facility] ED RN W/OE and Tasks Member Role: Patient Care Provider Name: Aliyah Bustos Position: [facility] ED [facility] Care Team Related Persons Name: CHAPO FLOWER Address: [place] [address] Name: MARISELA HURLEY Address: [place] [address]
--- OUTSIDE RECORDS SUMMARY | 2022-09-05 17:19 | XMS_ITS | Continuity of Care Document ---
Author Name Unknown Organization [facility] Address [address] [place] [address]- Care Team Providers Care Trim Sawyer Name Role Phone Michael Ibrahim MD Primary Care Physician [phone] Encounter [facility] [place] Date(s): 12/07/21 - 02/04/22 [facility] [address] [place] [address] Attending Physician: Surinder Villagran MD Admitting Physician: Surinder Villagran MD Referring Physician: [...] EDT, Supply Start Date: 12/07/21 Status: Ordered docusate sodium 100 mg oral capsule 100 mg, 1, capsule, By Mouth, 2 times a day, PRN, # 20 capsule, Refills 0, Tot. Refills 0, Maintenance, for constipation, 12/01/21 12:32:00 EDT, Route to Pharmacy Electronically, [facility][id number], Partial fill upon patient request if the pr... Start Date: 12/01/21 Status: Ordered Janumet XR 50 mg-1000 mg [...] day emilie robins entered on: 08/01/15 Sex Care Team Personnel Name: Patrice MARTINEZ, Michael Zurita Address: [address] [place] [address]
--- OUTSIDE RECORDS SUMMARY | 2022-09-05 17:19 | XMS_ITS | Continuity of Care Document ---
Author Name Unknown Organization [facility] Address [address] [place] [address]- Care Team Providers Care Deckhand Engineer Name Role Phone Simon MONTANA, Ericka Mac Primary Care Physician [place] [facility] [place] - 08/06/[address] [address] Attending Physician: Stephanie Knott Admitting Physician: AdmStephanie lopez Referring Physician: AdmtrStephanie Allergies, Adverse Reactions, Alerts Substance Reaction Severity [...]
--- OUTSIDE RECORDS SUMMARY | 2022-09-05 17:19 | XMS_ITS | Continuity of Care Document ---
Author Name Unknown Organization [facility] ter Address [address] [place] [address]- Care Team Providers Care Supervisor [employer] Name Role Phone Patrice MARTINEZ, Michael Zurita Primary Care Physician [phone] [place] [facility] [place] [id number] Date(s): 10/15/21 - 11/19/21 [facility] [address] [place] [address] Attending Physician: Surinder Villagran MD Admitting Physician: Surinder Villagran MD Allergies, Adverse Reactions, Alerts Substance Reaction [...] Anxiety depression(Confirmed) Active Obesity(Confirmed) Active Seroma(Confirmed) Active Vital Signs Most recent to oldest [Reference Range]: 1 Height 162 cm (10/16/21 12:51 PM) Social History Social History Type Response Smoking Status Current every day emilie robins entered on: 08/01/15 Sex
--- OUTSIDE RECORDS SUMMARY | 2022-09-05 17:19 | XMS_ITS | Continuity of Care Document ---
Author Name Unknown Organization [facility] Address [address] [place] [address]- Care Team Providers Care Front Desk Clerk Name Role Phone Michael Ibrahim MD Primary Care Physician [phone] Encounter [facility] [place] Date(s): 01/05/22 - 04/03/22 [facility] [address] [place] [address] Attending Physician: Danette Flores NP Admitting Physician: Danette Flores NP Referring Physician: Michael Ibrahim MD Allergies, Adverse [...] 12/01/21 12:32:00 EDT, Route to Pharmacy Electronically, [facility][id number], Partial fill upon patient request if the pr... Start Date: 12/01/21 Status: Ordered Janumet XR 50 mg-1000 mg oral tablet, extended release 1 tablet, By Mouth, Daily in PM, # 30 tablet, 0 Refills, Maintenance, 10/15/21 11:30:00 EDT, ER Tablet, Partial fill upon patient request if the prescription is for a schedule II opioid drug. Start Date: 10/15/21 Status: Ordered Problem List Condition Confirmation Course Effective Dates Status Health St [facility] Informant Anxiety depression Confirmed Active Obesity Confirmed Active Seroma Confirmed Active Social History Social History Type Response Smoking Status Current every day emilie robins entered on: 08/01/15 Sex Patient Care team information Personnel Name: Michael Ibrahim MD Address: Address: [address] [place] [address]
--- OUTSIDE RECORDS SUMMARY | 2022-09-05 17:19 | XMS_ITS | Continuity of Care Document ---
Author Name Unknown Organization [facility] Address [address] [place] [address] [address] [place] [address]- Care Team Providers Care Medical Customer Service Representative Name Role Phone Nathalie Mercado MD Primary Care Physician En[place] [facility] [place] Date(s): 11/12/20 - 12/12/[address] [place], [place] [address] Attending Physician: Stephanie Knott Admitting Physician: AdmStephanie lopez Referring Physician: Admtr ArCecilia Allergies, Adverse Reactions, Alerts Substance Reaction Severity [...] recent to oldest [Reference Range]: 1 Height 162.00 cm (03/24/10 10:11 AM) Weight 82.900 kg (03/24/10 10:11 AM) Pulse Rate [55-90 bpm] 72 bpm (03/24/10 10:11 AM) Body Mass Index [18.50-24.99] 31.59 *>HHI* (03/24/10 10:11 AM) Blood Pressure [90-138/55-84 mm Hg] 102/ 68mm Hg (03/24/10 10:11 AM) Respiratory Rate [16-30 br/min] 20 br/mi n (03/24/10 10:11 AM) Temperature [96.8-100.4 DegF] 98.0 DegF (03/24/10 10: AM) Blood pressure sites Arm, left (03/24/10 10:11 AM) Temperature Route Oral (03/24/10 10:11 AM) Social History Social History Type Response Smoking Status Current every day emilie robins entered on: 08/01/15 Sex
--- OUTSIDE RECORDS SUMMARY | 2022-09-05 17:19 | XMS_ITS | Continuity of Care Document ---
Author Name Unknown Organization [facility] Address [address] [place] [address]- Care Team Providers Care Earth Moving Technician Name Role Phone Simon MONTANA, Ericka Mac Primary Care Physician Encounter [facility] [place] Date(s): 07/01/21 - 08/06/[address] [address] Attending Physician: Simon MONTANA, Ericka Mac Admitting Physician: Ericka Montes NP Referring Physician: Simon MONTANA, Ericka Mac Allergies, Adverse Reactions, Alerts Substance Reaction Severity [...]
--- OUTSIDE RECORDS SUMMARY | 2022-09-05 17:19 | XMS_ITS | Continuity of Care Document ---
Author Name Unknown Organization [facility] Address [address] [place] [address]- Care Team Providers Care Slot Floor Person Name Role Phone Simon MONTANA, Ericka Mac Primary Care Physician Encounter [facility] [place] Date(s): 03/20/21 - 04/19/[address] [address] Attending Physician: Stephanie Knott Admitting Physician: Stephanie Knott Referring Physician: AdmtrStephanie Allergies, Adverse Reactions, Alerts [...]
--- OUTSIDE RECORDS SUMMARY | 2022-09-05 17:19 | XMS_ITS | Continuity of Care Document ---
Author Name Unknown Organization [facility] Address [address] [place] [address]- Care Team Providers Care Kiln Burner Name Role Phone Simon MONTANA, Ericka Mac Primary Care Physician ( [phone] Encounter [facility] [place] Date(s): 03/10/21 - 05/10/[address] [address] Discharge Disposition: A-D/C Home Attending Physician: Simon MONTANA, Ericka Mac Admitting [...]
--- OUTSIDE RECORDS SUMMARY | 2022-09-05 17:19 | XMS_ITS | Continuity of Care Document ---
Author Name Unknown Organization [facility] Address [address] [place] [id number]- Care Team Providers Care Seafood Specialist Name Role Phone Michael Ibrahim MD Primary Care Physician En[place] [facility] [place] [id number] Date(s): 10/26/21 - 12/05/21 [facility] [address] [place] [id number]- Attending Physician: Sparkle MARTINEZ, Surinder Sloan Admitting Physician: Surinder Villagran MD Referring Physician: Michael Ibrahim MD Allergies, Adverse Reactions, Alerts Substance Reaction Severity Status penicillin Hives Active aspirin Very Nauseaus Active Immunizations Given and Recorded Vaccine Date Status Refusal Reason tetanus/diphtheria/pertussis, acel(Tdap) 1 06/13/07 Given 1Admin Note: RECORD Medications docusate sodium 100 mg oral capsule 100 mg, 1, capsule, By Mouth, 2 times a day, PRN, # 20 capsule, Refills 0, Tot. Refills 0, Maintenance, for constipation, 12/01/21 12:32:00 EDT, Route to Pharmacy Electronically, [id number], Partial fill upon patient request if the [...]
--- OUTSIDE RECORDS SUMMARY | 2022-09-05 17:19 | XMS_ITS | Continuity of Care Document ---
Author Name Unknown Organization [facility] Address [address] [place] [id number]- Care Team Providers Care Calendering Machine Operator Name Role Phone Simon MONTANA, Ericka Mac Primary Care Physician [place] [facility] [place](s): 07/08/21 - 07/15/21 [facility] [address] [place] [id number] Attending Physician: Bakari Chacko MD Admitting Physician: Bakari Chacko MD Referring Physician: Ericka Montes NP Allergies, Adverse Reactions, Alerts Substance Reaction Severity [...]
--- OUTSIDE RECORDS SUMMARY | 2022-09-05 17:19 | XMS_ITS | Continuity of Care Document ---
Author Name Unknown Organization [facility] Address [address] [place] [phone]- Care Team Providers Care Collar Sewer Name Role Phone Michael Ibrahim MD Primary Care Physician Encounter [facility] [place] Date(s): 03/04/22 - 04/03/22 [facility] [address] [place], [place] [id number] Attending Physician: Stephanie Knott Admitting Physician: AdmStephanie lopez Referring Physician: Admtr, Ar8 Allergies, Adverse Reactions, Alerts Substance Reaction Severity [...] 12/01/21 12:32:00 EDT, Route to Pharmacy Electronically, [facility][id number], Partial fill upon patient request if the [...] Personnel Name: Michael Ibrahim MD Address: Address: [address] [place] [address]
--- OUTSIDE RECORDS SUMMARY | 2022-09-05 17:19 | XMS_ITS | Continuity of Care Document ---
Author Name Unknown Organization [facility] ter Address [address] [place] [phone]- Care Team Providers Care Data Steward Name Role Phone Michael Ibrahim MD Primary Care Physician [place] [facility] [place] Date(s): 04/08/22 - 04/14/[address] [id number] Discharge Disposition: A-D/C Home Attending Physician: Cristobal Spencer MD Admitting Physician: Cristobal Spencer MD Referring Physician: Not on Staff, Referring MD Allergies, Adverse Reactions, Alerts Substance Reaction Severity Status penicillin Hives Active aspirin Very Nauseaus Active Immunizations Given and Recorded Vaccine Date Status Refusal Reason tetanus/diphtheria/pertussis, acel(Tdap) 1 06/13/07 Given 1Admin Note: RECORD Medications acetaminophen 325 mg oral tablet 975 mg, 3, tablet, By Mouth, Every 6 hours, for 3 days, # 36 tablet, Refills 0, Tot. Refills 0, Acute 04/17/22 9:59:00 EDT, 04/14/22 9:59:00 EDT, Route to Pharmacy Electronically, [facility], Partial fill upon patient request if the pres... Start Date: 04/14/22 Stop Date: 04/17/22 Status: Ordered Compression Stockings See Instructions, # 2 each, Maintenance, surgical, knee length 20-30 mm Hg, 12/07/21 10:47:00 EDT, Supply Start Date: 12/07/21 Status: Ordered docusate-senna 50 mg-8.6 mg oral capsule 1 capsule, By Mouth, Daily in PM, for 3 days, # 3 capsule, 0 Refills, Acute 04/17/22 10:00:00 EDT, 04/14/22 10:00:00 EDT, Capsule, [facility], Partial fill upon patient request if the prescription is for a schedule II opioid drug., 1 cap... Start Date: 04/14/22 Stop Date: 04/17/22 Status: Ordered Janumet XR 50 mg-1000 mg oral tablet, extended release 1 tablet, By Mouth, Daily in PM, # 30 tablet, 0 Refills, Maintenance, 10/15/21 11:30:00 EDT, ER Tablet, Partial fill upon patient request if the prescription is for a schedule II opioid drug. Start Date: 10/15/21 Status: Ordered oxyCODONE 5 mg oral tablet 5 mg, 1, tablet, By Mouth, Every 4 hours, PRN, for 3 days, # 12 tablet, Refills 0, Tot. Refills 0, Acute 04/17/22 9:59:00 EDT, Pain , Severe, 04/14/22 9:59:00 EDT, Route to Pharmacy Electronically, [facility], Partial fill upon patient r... Start Date: 04/14/22 Stop Date: 04/17/22 Status: Ordered oxyCODONE 5 mg oral tablet 5 mg, Tablet, By Mouth, Every 4 hours for 7 days, Hold for: SBP < 90, HR < 60, RR < 8, PRNfor Pain , Severe, Routine, 04/13/22 7:43:00 EDT, Stop date 04/20/22 7:42:00 EST Start Date: 04/13/22 Stop Date: 04/14/22 Status: Discontinued silver topical gel See Instructions, Topically Every day with dressing changes to left coccy/buttock region, # 45 mL, 0 Refills, Acute 04/21/22 8:00:00 EST, 04/14/22 9:59:00 EDT, Gel, [facility], Partial fill upon patient request if the prescription is for... Start Date: 04/14/22 Stop Date: 04/21/22 Status: Ordered Problem List Condition Confirmation Course Effective Dates Status Health St atus Informant Anxiety depression Confirmed Active Obese class I Confirmed Active Obesity Confirmed Active Seroma Confirmed Active Procedures Procedure Date Related Diagnosis Body Site Status Enterectomy, resection of sm all intestine; single resection and anastomosis 04/10/22 Completed Exploratory laparotomy, expl oratory celiotomy with or without biopsy(s) (separate procedure) 1 04/10/22 Completed 1lysis of adhesions >2 hours Results Radiology Reports * Exam Date Time Procedure Performing Provider Status 04/13/22 11:26 AM Abdomen Comp Inc Dec ub and/or Erect Saba Carballo; Auth (Verified) Notes: (Abdomen Comp Inc Decub and/or Erect) Reason For Exam: Distention RESULT: Abdomen Comp Inc Decub and/or Erect Abdomen Comp Inc Decub and/or Erect 2 view INDICATION/CLINICAL QUESTION: Reason: Distention; Clinical Question(s): Obstruction COMPARISON: April 12, 2022, radiographs. FINDINGS: Persistent gaseous distention of small bowel loops with multiple air-fluid levels, with loops measuring up to 4.6 cm in diameter. Appearance is similar to the prior study, with slightly increased gaswithin the colonic lumen. Midline laparotomy clinton are noted, as a mesh herniorrhaphy changes. Noevidence of pneumoperitoneum. Small amount of subcutaneous emphysema at the level of the lower leftlateral ribs is unchanged to slightly decreased. IMPRESSION: Persistent fluid-filled dilatation of small bowel loops suggesting ongoing partial small bowel obstruction or ileus. WSN: [id number] Ordering Physician: Aym Golden Dictated By: Micah Henderson MD Dictated Date/Time: 04/13/22 12:30 p Reviewed By: Micah Henderson MD Signed By: Micah Henderson MD Signed Date/Time: 04/13/22 12:30 pm Transcribed By: BEBO Transcribed Date/Time: 04/13/22 12:28 pm * Exam Date Time Procedure Performing Provider Status 04/12/22 9:22 AM Abdomen AP Sonya Ricardo; Auth (V erified) Notes: (Abdomen AP) Reason For Exam: Distention RESULT: XR Abdomen AP XR Abdomen AP 1 view INDICATION/CLINICAL QUESTION: Distention; Clinical Question(s): Obstruction COMPARISON: Abdomen radiograph from 04/09/2022. FINDINGS: Interval removal of the enteric tube with postsurgical clinton in the mid abdomen, consistent with recent small bowel resection. There are mildly distended loops of small bowel , but no air in the rectum. No evidence of pneumoperitoneum. No organomegaly, masses or calcifications. No acute bone findings. IMPRESSION: Postsurgical changes in the mid abdomen with mildly distended loops of bowel. Findings could be dueto ileus or small bowel obstruction. I have personally reviewed the images and I agree with this report. WSN: [id number] Ordering Physician: Edgard Voss Dictated By: Thomas Beauchamp MD Dictated Date/Time: 04/12/22 9:41 am Reviewed By: Luther Jimenez MD Signed By: Luther Jimenez MD Signed Date/Time: 04/12/22 9:46 am Transcribed By: BEBO Transcribed Date/Time: 04/12/22 9:33 am * Exam Date Time Procedure Performing Provider Status 04/09/22 4:29 PM Abdomen AP Jodi Mayfield; Auth (Verified) Notes: (Abdomen AP) Reason For Exam: Other: RESULT: XR Abdomen AP XR Abdomen AP 1 view INDICATION/CLINICAL QUESTION: Reason: Other:; Clinical Question(s): Obstruction; Special Instructions: NEEDS TO BE DONE AT EXACTLY 1 PM COMPARISON: Comparison made to prior exam of 04/08/2022 at 06:52 FINDINGS: Side port and tip of the gastric tube in the stomach. Air-filled dilatation of small bowel loops persists. Contrast is seen in the small bowel loops without definitive contrast seen in the colon. No acute osseous interval change. Prior lower abdominal wall mesh repair. IMPRESSION: Contrast present in small bowel loops with persistent dilatation. No definitive contrast identified in the colon. Findings remain concerning for ongoing obstruction. WSN: [id number] Ordering Physician: Romana Cruz Dictated By: Kirsten Palacios MD Dictated Date/Time: 04/09/22 5:16 pm Reviewed By: Kirsten Palacios MD Signed By: Kirsten Palacios MD Signed Date/Time: 04/09/22 5:16 pm Transcribed By: BEBO Transcribed Date/Time: 04/09/22 5:14 pm * Exam Date Time Procedure Performing Provider Status 04/08/22 6:57 PM XR Abdomen AP Small Bowel W/ contrast Carlos Palma; Auth (Verified) Notes: (XR Abdomen AP Small Bowel W/ contrast) Reason For Exam: Distention;Distention RESULT: XR Abdomen AP Small Bowel with contrast PROCEDURE: XR Abdomen AP Small Bowel with contrast CLINICAL INDICATION: 46 years old Female with small bowel dilatation CT, the middle distention; Clinical Question(s): Obstruction; Special Instructions: part of SBO protocol, please obtain 8 hours after administration of contrast; Order Comment:. TECHNIQUE: AP supine KUB obtained at 6:45 PM after the oral administration of iodinated contrast eight hours earlier. Type of contrast on the volume are not specified. COMPARISON: Enhanced CT abdomen and pelvis of earlier the same day. FINDINGS: Lines and tubes: Enteric tube ends in the proximal gastric body. Bowel gas pattern: Faint oral contrast noted in mildly dilated small bowel loops but it has not reached the large bowel but the distal ileum. Soft tissues: No masses or visceromegaly. No calcifications. Bones: Osseous structures are unremarkable. Multiple herniorrhaphy anchors are noted in the bilateral lower quadrants and the pelvis. IMPRESSION: 1. Findings are consistent with mechanical small bowel obstruction without contrast noted in the distal ileum or the colon eight hours after oral administration. 2. Enteric tube ending in the proximal gastric body. 3. Herniorrhaphy mesh. Thank you for allowing me to participate in the care of this patient. A critical result message (Yellow) has been communicated via the [employer] system on 04/08/2022 7:16 PM, Message ID [id number]. WSN: [id number] Ordering Physician: Oriana Garcia Dictated By: Ben Arreguin MD Dictated Date/Time: 04/08/22 7:16 pm Reviewed By: Ben Arreguin MD Signed By: Ben Arreguin MD Signed Date/Time: 04/08/22 7:16 pm Transcribed By: BEBO Transcribed Date/Time: 04/08/22 7:12 pm Vital Signs Most recent to oldest [Reference Range]: 1 2 3 Height 162 cm (04/14/22 3:56 AM) 162 cm (04/13/22 3:31 AM) 162 cm (04/13/22 12:24 AM) Weight 82 kg (04/09/22 9:08 PM) 82 kg (04/08/22 8:29 PM) Oxygen Saturation [94-100 %] 99 % (04/14/22 7:00 AM) 100 % (04/14/22 3:56 AM) 97 % (04/13/22 6:00 PM) Pulse Rate [55-90 bpm] 73 bpm (04/14/22 7:00 AM) 67 bpm (04/14/22 3:56 AM) 71 bpm (04/13/22 6:00 PM) Body Mass Index [18.5-24.99 kg/m2] 31.25 kg/m2 *>HHI* (04/09/22 9:08 PM) 31.25 kg/m2 *>HHI* (04/08/22 8:29 PM) Blood Pressure [90-138/55-84 mm Hg] 142/82mm Hg *H* (04/14/22 7:00 AM) 143/81mm Hg *H* (04/14/22 3:56 AM) 141/85mm Hg *H* (04/13/22 6:00 PM) Respiratory Rate [16-30 br/min] 18 br/min (04/14/22 9:33 AM) 18 br/min (04/14/22 7:00 AM) 18 br/min (04/14/22 5:31 AM) Temperature [96.8-100.4 DegF] 98.2 DegF (04/14/22 7:00 AM) 98.9 DegF (04/14/22 3:56 AM) 98.2 DegF (04/13/22 6:00 PM) Liters per Minute 2 L/min (04/10/22 4:52 AM) 2 L/min (04/10/22 2:32 AM) 2 L/min (04/10/22 2:15 AM) Mode of Delivery (Oxygen) Room air (04/14/22 7:00 AM) Room air (04/14/22 3:56 AM) Room air (04/13/22 6:00 PM) Blood pressure sites Arm, right (04/14/22 7:00 AM) Arm, right (04/14/22 3:56 AM) Arm, right (04/13/22 6:00 PM) Temperature Route Oral (04/14/22 7:00 AM) Oral (04/14/22 3:56 AM) Oral (04/13/22 6:00 PM) Dry Weight 82 kg (04/09/22 9:08 PM) 82 kg (04/08/22 8:29 PM) Social History Social History Type Response Smoking Status Current every day emilie robins entered on: 2/19/16 Sex XR Abdomen AP * LOLISSPowersckittybe , CIS S: TRANSCRIBE Luther Jimenez MD: VERIFY Thomas Beauchamp MD: SIGN Event Display: Result: Authored Date: [id number] XR Abdomen AP 1 view INDICATION/CLINICAL QUESTION: Distention; Clinical Question(s): Obstruction COMPARISON: Abdomen radiograph from 04/09/2022. FINDINGS: Interval removal of the enteric tube with postsurgical clinton in the mid abdomen, consistent with recent small bowel resection. There are mildly distended loops of small bowel , but no air in the rectum. No evidence of pneumoperitoneum. No organomegaly, masses or calcifications. No acute bone findings. IMPRESSION: Postsurgical changes in the mid abdomen with mildly distended loops of bowel. Findings could be dueto ileus or small bowel obstruction. I have personally reviewed the images and I agree with this report. WSN: [id number] Ordering Physician: Edgard Voss Dictated By: Thomas Beauchamp MD Dictated Date/Time: 04/12/22 9:41 am Reviewed By: Luther Jimenez MD Signed By: Luther Jimenez MD Signed Date/Time: 04/12/22 9:46 am Transcribed By: CSCassius Transcribed Date/Time: 04/12/22 9:33 am * Annemarie , CIS S: TRANSCRIKirsten Concepcion MD: VERIFY Event Display: Result: Authored Date: [id number] XR Abdomen AP 1 view INDICATION/CLINICAL QUESTION: Reason: Other:; Clinical Question(s): Obstruction; Special Instructions: NEEDS TO BE DONE AT EXACTLY 1 PM COMPARISON: Comparison made to prior exam of 04/08/2022 at 06:52 FINDINGS: Side port and tip of the gastric tube in the stomach. Air-filled dilatation of small bowel loops persists. Contrast is seen in the small bowel loops without definitive contrast seen in the colon. No acute osseous interval change. Prior lower abdominal wall mesh repair. IMPRESSION: Contrast present in small bowel loops with persistent dilatation. No definitive contrast identified in the colon. Findings remain concerning for ongoing obstruction. WSN: [id number] Ordering Physician: Romana Cruz Dictated By: Kirsten Palacios MD Dictated Date/Time: 04/09/22 5:16 pm Reviewed By: Kirsten Palacios MD Signed By: Kirsten Palacios MD Signed Date/Time: 04/09/22 5:16 pm Transcribed By: BEBO Transcribed Date/Time: 04/09/22 5:14 pm Note * NITO Sharpe S: Micah Phillips MD: VERIFY Event Display: Result: Authored Date: [id number] Abdomen Comp Inc Decub and/or Erect 2 view INDICATION/CLINICAL QUESTION: Reason: Distention; Clinical Question(s): Obstruction COMPARISON: April 12, 2022, radiographs. FINDINGS: Persistent gaseous distention of small bowel loops with multiple air-fluid levels, with loops measuring up to 4.6 cm in diameter. Appearance is similar to the prior study, with slightly increased gaswithin the colonic lumen. Midline laparotomy clinton are noted, as a mesh herniorrhaphy changes. Noevidence of pneumoperitoneum. Small amount of subcutaneous emphysema at the level of the lower leftlateral ribs is unchanged to slightly decreased. IMPRESSION: Persistent fluid-filled dilatation of small bowel loops suggesting ongoing partial small bowel obstruction or ileus. WSN: [id number] Ordering Physician: Amy Golden Dictated By: Micah Henderson MD Dictated Date/Time: 04/13/22 12:30 p Reviewed By: Micah Henderson MD Signed By: Micah Henderson MD Signed Date/Time: 04/13/22 12:30 pm Transcribed By: BEBO Transcribed Date/Time: 04/13/22 12:28 pm * NITO Sharpe S: LIZRIBen Bazzi MD: VERIFY Event Display: Result: Authored Date: [id number] PROCEDURE: XR Abdomen AP Small Bowel with contrast CLINICAL INDICATION: 46 years old Female with small bowel dilatation CT, the middle distention; Clinical Question(s): Obstruction; Special Instructions: part of SBO protocol, please obtain 8 hours after administration of contrast; Order Comment:. TECHNIQUE: AP supine KUB obtained at 6:45 PM after the oral administration of iodinated contrast eight hours earlier. Type of contrast on the volume are not specified. COMPARISON: Enhanced CT abdomen and pelvis of earlier the same day. FINDINGS: Lines and tubes: Enteric tube ends in the proximal gastric body. Bowel gas pattern: Faint oral contrast noted in mildly dilated small bowel loops but it has not reached the large bowel but the distal ileum. Soft tissues: No masses or visceromegaly. No calcifications. Bones: Osseous structures are unremarkable. Multiple herniorrhaphy anchors are noted in the bilateral lower quadrants and the pelvis. IMPRESSION: 1. Findings are consistent with mechanical small bowel obstruction without contrast noted in the distal ileum or the colon eight hours after oral administration. 2. Enteric tube ending in the proximal gastric body. 3. Herniorrhaphy mesh. Thank you for allowing me to participate in the care of this patient. A critical result message (Yellow) has been communicated via the [employer] system on 04/08/2022 7:16 PM, Message ID [id number]. WSN: [id number] Ordering Physician: Oriana Garcia Dictated By: Ben Arreguin MD Dictated Date/Time: 04/08/22 7:16 pm Reviewed By: Ben Arreguin MD Signed By: Ben Arreguin MD Signed Date/Time: 04/08/22 7:16 pm Transcribed By: BEBO Transcribed Date/Time: 04/08/22 7:12 pm Patient Care team information Personnel Name: Michael Ibrahim MD Address: Address: [address] [place] [address]
--- OUTSIDE RECORDS SUMMARY | 2022-09-05 17:19 | XMS_ITS | Continuity of Care Document ---
Author Name Unknown Organization [facility] ter Address [address] [place] [address]- Care Team Providers Care Document Clerk Name Role Phone Not on Staff, PCP Primary Care Physician Unavail able Encounter [facility] Date(s): 08/26/22 - 08/26/[address] [address]- Encounter Diagnosis Supraumbilical hernia(Final) - 08/26/22 Discharge Disposition: A-D/C Home Attending Physician: Jim Jolley MD Admitting Physician: Jim Jolley MD Referring Physician: Not on Staff, Referring [...] 04/22/22 15:41:00 EST, Route to Pharmacy Electronically, [facility] #[id number], Partial fill upon patient request if the [...] opioid drug. Start Date: 10/15/21 Status: Ordered topiramate 25 mg oral tablet 0 Refills, Maintenance, 08/12/22 4:20:00 EST, Partial fill upon patient request if the prescriptionis for a schedule II opioid drug. Start Date: 08/12/22 Status: Ordered Toradol Inj 10 mg, Injection, Intramuscular, Once, STAT, 08/26/22 10:12:00 EDT, Stop date 08/26/22 10:12:00 EDT Start Date: 08/26/22 Stop Date: 08/26/22 Status: Completed Tylenol Extra Strength 500 mg oral tablet 2 tablet = 1,000 mg, By Mouth, 3 times a day, PRN Pain , Moderate, not to exceed 3000 mg/day, # 60 tablet, 0 Refills, Maintenance, 08/26/22 11:30:00 EDT, Tablet, [facility] #[id number], Partial fill upon patient request, 163, cm, 08/26/22 11:23:0... Start Date: 08/26/22 Stop Date: 09/05/22 Status: Ordered Problem List Condition Confirmation Course Effective Dates Status Health St atus Informant Anxiety depression Confirmed Active Obesity Confirmed Active Seroma Confirmed Active Vital Signs Most recent to oldest [Reference Range]: 1 2 3 Height 163 cm (08/26/22 11:23 AM) 163 cm (08/26/22 8:54 AM) 163 cm (08/26/22 8:36 AM) Weight 76.6 kg (08/26/22 11:23 AM) 76.6 kg (08/26/22 8:54 AM) 76.6 kg (08/26/22 8:36 AM) Oxygen Saturation [94-100 %] 98 % (08/26/22 11:23 AM) 99 % (08/26/22 8:54 AM) 100 % (08/26/22 8:36 AM) Pulse Rate [55-90 bpm] 78 bpm (08/26/22 11:23 AM) 87 bpm (08/26/22 8:54 AM) 92 bpm *H* (08/26/22 8:36 AM) Body Mass Index [18.5-24.99 kg/m2] 28.83 kg/m2 *H* (08/26/22 11:23 AM) 28.83 kg/m2 *H* (08/26/22 8:54 AM) 28.83 kg/m2 *H* (08/26/22 8:36 AM) Blood Pressure [90-138/55-84 mm Hg] 130/81mm Hg (08/26/22 11:23 AM) 124/74mm Hg (08/26/22 8:54 AM) 119/77mm Hg (08/26/22 8:36 AM) Respiratory Rate [16-30 br/min] 18 br/min (08/26/22 11:23 AM) 18 br/min (08/26/22 10:52 AM) 18 br/min (08/26/22 8:54 AM) Temperature [96.8-100.4 DegF] 97.9 DegF (08/26/22 11:23 AM) 98.8 DegF (08/26/22 8:54 AM) 98.4 DegF (08/26/22 8:36 AM) Mode of Delivery (Oxygen) Room air (08/26/22 11:23 AM) Room air (08/26/22 8:54 AM) Room air (08/26/22 8:36 AM) Blood pressure sites Arm, left (08/26/22 11:23 AM) Arm, left (08/26/22 8:54 AM) Arm, right (08/26/22 8:36 AM) Temperature Route Oral (08/26/22 11:23 AM) Oral (08/26/22 8:54 AM) Oral (08/26/22 8:36 AM) Dry Weight 76.6 kg (08/26/22 11:23 AM) 76.6 kg (08/26/22 8:54 AM) 76.6 kg (08/26/22 8:36 AM) Weight Obtained Via Standing scale (08/26/22 8:36 AM) Dry Weight Obtained Via Standing scale (08/26/22 8:36 AM) Social History Social History Type Response Smoking Status 5-9 cigarettes (betw een 1/4 to 1/2 pack)/day in last 30 days; Interested in cessation: Yes; Patient wants NRT during admission No entered on: 08/07/22 Sex Note * Amita HERNANDEZ, Annabelle Hammonds: PERFORM Event Display: Patient Education Leaflets Authored Date: [id number] Hernia (Adult) ?? [id number] Hernia (Adult) A hernia can happen when there is a weakness or defect in the wall of the abdomen or groin.??Intestines or nearby tissues may move from their usual location and push through the weakness in the wall.This can cause a bulge (hernia) you may see or feel. Causes and risk factors?? A hernia may be present at . Or it may be caused by the wear and tear of daily living. Certainthings can make a hernia more likely. These can include: ??? Heavy lifting ??? Straining, whether from lifting, movement, or constipation ??? Chronic cough ??? Injury to the abdominal wall ??? Excessweight ? Past surgery ??? Older age ??? Family history of hernia ?? Symptoms Symptoms of a hernia may come on suddenly. Or they may appear slowly over time. Some common symptoms include: ??? Bulge in the groin area, around the navel, or in the scrotum. The bulge may get bigger when you stand and go away when you lie down. ??? Pain or pressure around the bulge ??? Pain during activities such as lifting, coughing, or sneezing ??? A feeling of weakness or pressure in the groi n ??? Pain or swelling in the scrotum ?? Types of hernias There are different types of hernia. The type you have depends on where it is: ??? Inguinal. This type is in the groin or scrotum. It's more common in men. But women can also getthis hernia. ??? Femoral. This type is in the groin, upper thigh, or labia. It's more common in women. ??? Ventral. This type is in the abdominal wall. ??? Umbilical. This type occurs around the bellybutton (navel). ??? Incisional. This type occurs at the site of a past surgery. The condition of the hernia can help determine how quickly it needs to be treated. ??? Reducible. It goes back in by itself, or it can be pushed back in. ??? Irreducible. It can???t be pushed back in. ??? Incarcerated or strangulated. The intestine is trapped (incarcerated). If this happens, you won???t be able to push the bulge back in. If the incarcerated hernia isn???t treated, it may become strangulated. This means the area loses blood supply and the tissue may .?? This requires emergency surgery. You need treatment right away. In most cases, a hernia will not heal on its own. You may need surgery to repair the defect in the abdominal wall or groin. You???ll be told more about surgery, if needed. If your symptoms are not severe, treatment may sometimes be delayed. In such cases, you will need regular follow-up visits with the provider. You???ll be asked to keep track of your symptoms and to watch for signs of more serious problems. You may also be given guidelines similar to the home care instructions below. ?? Home care To help keep a hernia from getting worse, you may be advised to: ??? Not do any heavy lifting or straining as directed. ??? Take steps to prevent constipation. This includes eating more fiber and drinking more water. This may help reduce straining that can occur when having a bowel movement. Reducing straining may help keep your symptoms from getting worse. ??? Stay at a healthy weight or lose extra weight. This can help reduce strain on abdominal muscles and tissues. ??? Stop smoking. This canhelp prevent coughing that may also strain abdominal muscles and tissues. ?? Follow-up care Follow up with your healthcare provider, or as directed.??If you had imaging tests, they will be reviewed a doctor. You will be told the results and any new findings that may affect your care. ?? When to seek medical advice Call your healthcare provider right away if any of these occur: ??? Hernia hardens, swells, or grows larger ??? Hernia can no longer be pushed back in ??? Pain moves to the lower right abdomen (just below the waistline), or spreads to the back ??? You have new symptoms ?? Call 911 Call 911??if any of these occur: ??? Severe pain, redness, or tenderness in the area near the hernia ??? Pain gets worse quickly and doesn???t get better ??? Inability to have a bowel movement or pass gas ??? Fever of 100.4??F (38??C) or higher, or as directed by your healthcare provider ?? Last Reviewed Date: 2021 ?? [employer] All rights reserved. This information is not intended as a substitute for professional medical care. Always follow your healthcare professional's instructions. ?? Patient Care team information Care Team Personnel Name: Jodee Staton RN Position: [facility] RN Member Role: Primary Care Nurse Name: Rachana Arroyo RN Position: [facility] RN Member Role: Primary Care Nurse Name: Saba Pool Position: [facility] Outreach Member Role: Lifetime Consulting Physician Name: Cecilia Damon RN Position: [facility] RN Member Role: Primary Care Nurse Name: Jimena Sanchez RN Position: [facility] RN Member Role: Primary Care Nurse Name: Tressa Bahena RN Position: [facility] RN Member Role: Primary Care Nurse Name: Jeannette Ribera RN Position: [facility] RN Member Role: Primary Care Nurse Name: Not on Staff, PCP Position: [facility] Physician (General Medicine) Member Role: PCP Name: Annabelle Vuong Position: [facility] Associate Professional Member Role: ED Physician Safety Representative Address: Address: [address] [place] [address] Name: Clara Rodriguez RN Position: [facility] ED RN W/OE and Tasks Member Role: Patient Care Provider Name: Tushar Mitchell Position: [facility] ED TA VANESSA Name: Jim Jolley MD Position: [facility] Resident Member Role: Admitting Physician Address: Address: [address] [place] [address] Name: Jaimie Bonilla RN Position: [facility] ED RN W/OE and Tasks Member Role: Patient Care Provider Care Team Related Persons Name: CHAPO FLOWER Address: [place] [address] Name: MARISELA HURLEY Address: [place] [address]
--- OUTSIDE RECORDS SUMMARY | 2022-09-05 17:19 | XMS_ITS | Continuity of Care Document ---
Author Name Unknown Organization [facility] ter Address [address] [place] [address]- Care Team Providers Care Turn Down Worker Name Role Phone Michael Ibrahim MD Primary Care Physician [place] [facility] [place](s): 04/14/22 - 05/14/[address] [address] [place] Attending Physician: Not on Staff, Attending MD Admitting Physician: Not on Staff, Admitting MD Referring Physician: Not on Staff, Referring [...] 04/22/22 15:41:00 EST, Route to Pharmacy Electronically, [facility] #[id number], Partial fill upon patient request if the [...] on: 08/01/15 Sex Patient Care team information Care Team Personnel Name: Jodee Staton RN Position: [facility] RN Member Role: Primary Care Nurse Name: Saba Pool Position: S Outreach Member Role: Lifetime Consulting Physician Name: Cecilia Damon RN Position: S RN Member Role: Primary Care Nurse Name: Jimena Sanchez RN Position: [facility] RN Member Role: Primary Care Nurse Name: Jeannette Ribera RN Position: [facility] RN Member Role: Primary Care Nurse Name: Michael Ibrahim MD Position: [facility] Outreach Member Role: PCP Address: Address: [address] [place] [address]- Care Team Related Persons Name: CHAPO FLOWER Address: [place] [address] Name: MARISELA HURLEY Address: [place] [address]
--- OUTSIDE RECORDS SUMMARY | 2022-09-05 17:20 | XMS_ITS | Continuity of Care Document ---
Author Name Unknown Organization [facility] ter Address [address] [place] [address]- Care Team Providers Care Driver Material Handler Name Role Phone Michael Ibrahim MD Primary Care Physician Encounter [facility] [place] R [id number] Date(s): 08/04/22 - 08/05/[address] [address]- Discharge Disposition: A-D/C Walkout Attending Physician: Not on Staff, Attending MD [...] 04/22/22 15:41:00 EST, Route to Pharmacy Electronically, [facility] #[id number], Partial fill upon patient request if the [...] recent to oldest [Reference Range]: 1 2 Height 163 cm (08/04/22 8:29 PM) Weight 79.1 kg (08/04/22 8:29 PM) Oxygen Saturation [94-100 %] 100 % (08/04/22 8:29 PM) 100 % (08/04/22 8:20 PM) Pulse Rate [55-90 bpm] 88 bpm (08/04/22 8:29 PM) 91 bpm *H* (08/04/22 8:20 PM) Body Mass Index [18.5-24.99 kg/m2] 29.77 kg/m2 *H* (08/04/22 8:29 PM) Blood Pressure [90-138/55-84 mm Hg] 120/ 66mm Hg (08/04/22 8:29 PM) Respiratory Rate [16-30 br/min] 16 br/mi n (08/04/22 8:29 PM) 18 br/min (08/04/22 8:20 PM) Temperature [96.8-100.4 DegF] 98.4 DegF (08/04/22 8:29 PM) Mode of Delivery (Oxygen) Room air (08/04/22 8:29 PM) Room air (08/04/22 8:20 PM) Blood pressure sites Leg, right (08/04/22 8:29 PM) Temperature Route Oral (08/04/22 8:29 PM) Dry Weight 79.1 kg (08/04/22 8:29 PM) Weight Obtained Via Standing scale (08/04/22 8:29 PM) Dry Weight Obtained Via Standing scale (08/04/22 8:29 PM) Social History Social History Type Response Smoking Status Current every day emilie robins entered on: 08/01/15 Sex EKG study * Event Display: ECG 12-Lead Authored Date: Please click on pdf link to open report * Event Display: ECG 12-Lead Authored Date: Ventricular Rate: 83 BPM Atrial Rate: 83 BPM P-R Interval: 208 ms QRS Duration: 82 ms Q-T Interval: 368 ms QTC Calculation(Bazett): 432 ms P Iola: 56 degrees R Iola: -9 degrees T Iola: 22 degrees Normal sinus rhythm Normal ECG When compared with ECG of 22-DEC-2021 19:20, No significant change was found Confirmed by FARIDA SALCEDO DO ([id number]) on 08/05/2022 2:43:07 PM [place]: FARIDA SALCEDO DO Patient Care team information Care Team Personnel Name: Jodee Staton RN Position: S RN Member Role: Primary Care Nurse Name: Saba Pool Position: S Outreach Member Role: Lifetime Consulting Physician Name: Cecilia Damon RN Position: S RN Member Role: Primary Care Nurse Name: Jimena Sanchez RN Position: S RN Member Role: Primary Care Nurse Name: Jeannette Ribera RN Position: S RN Member Role: Primary Care Nurse Name: Michael Ibrahim MD Position: [facility] Outreach Member Role: PCP Address: Address: [address] [place] [address]- Care Team Related Persons Name: CHAPO FLOWER Address: [place] [address] Name: MARISELA HURLEY Address: [place] [address]
--- OUTSIDE RECORDS SUMMARY | 2022-09-05 17:20 | XMS_ITS | Continuity of Care Document ---
Author Name Unknown Organization [facility] Address [address] [place] [address]- Care Team Providers Care Chemistry Account Manager Name Role Phone Michael Ibrahim MD Primary Care Physician [phone] Encounter [facility] [place] Date(s): 12/07/21 - 01/06/22 [facility] [address] [place], [place] [address] Attending Physician: Stephanie Knott Admitting Physician: AdmStephanie [...] 12/01/21 12:32:00 EDT, Route to Pharmacy Electronically, [facility]#[id number], Partial fill upon patient request if the [...]
--- OUTSIDE RECORDS SUMMARY | 2022-09-05 17:20 | XMS_ITS | Continuity of Care Document ---
Author Name Unknown Organization [facility] Address [address] [place] [address]- Care Team Providers Care Tub Wash Operator Name Role Phone Michael Ibrahim MD Primary Care Physician [phone] Encounter [facility] [place] ACCT R [id number] Date(s): 10/15/21 - 11/22/21 [facility] [address] [place] [address]- Attending Physician: Surinder Villagran MD Admitting Physician: [...]
--- OUTSIDE RECORDS SUMMARY | 2022-09-05 17:20 | XMS_ITS | Continuity of Care Document ---
Author Name Unknown Organization [facility] Address [address] [place] [address]- Care Team Providers Care Field Service Poultry Technician Name Role Phone Michael Ibrahim MD Primary Care Physician [place] [facility] [id number] Date(s): 12/07/21 - 12/14/21 [facility] [address] [place] [address]- Attending Physician: Surinder Villagran MD Admitting Physician: [...] 12/01/21 12:32:00 EDT, Route to Pharmacy Electronically, [facility]#[id number], Partial fill upon patient request if the [...]
--- OUTSIDE RECORDS SUMMARY | 2022-09-05 17:20 | XMS_ITS | Continuity of Care Document ---
Author Name Unknown Organization [facility] ter Address [address] [place] [id number] Care Team Providers Care Registered Public Health Nurse Name Role Phone Not on Staff, PCP Primary Care Physician Unavail able Encounter [facility] [place], [place] Date(s): 08/07/22 - 08/07/[address] [id number] Discharge Disposition: A-D/C Home Attending Physician: Ivett POTTER MD, Adin T Admitting Physician: Ivett POTTER MD, Adin T Referring Physician: Not on Staff, Referring MD [...] 04/22/22 15:41:00 EST, Route to Pharmacy Electronically, [facility] #[id number], Partial fill upon patient request if the prescription is for a rex... Start Date: 04/22/22 Stop Date: 05/02/22 Status: Ordered HYDROmorphone Inj 0.5 mg, Injection, IV Push Slowly, Every 3 hours, PRN for Pain , Severe, Routine, 08/07/22 1:38:00 EST Start Date: 08/07/22 Stop Date: 08/07/22 Status: Discontinued Janumet XR 50 mg-1000 mg oral tablet, [...] Exam Date Time Procedure Performing Provider Status 08/06/22 6:[address] Abd/Pelvis W/ IV + Oral Contrast Amy Fernando; Auth (Verified) Notes: (CT Abd/Pelvis W/ IV + Oral Contrast) Reason For Exam: distention s/p ex lap last year;Postop RESULT: CT Abd/Pelvis W/ IV + Oral Contrast CT Abd/Pelvis W/ IV + Oral Contrast Hx of Present Illness: abd pain; Reason: Postop; distention s p ex lap last year; Clinical Question(s): Obstruction; Order Comment: TECHNIQUE: Spiral CT through the abdomen and pelvis with IV contrast formatted in 3 planes. 100 cc of Omnipaque 300 was administered intravenously. This study was performed with oral contrast. Weight-based protocol using automatic tube modulation was used to optimize exposure parameters. CTDIvol Body: 18.10 mGy, DLP Body: 990 mGy*cm. COMPARISON: Multiple prior studies, most recent on 04/08/2022. FINDINGS: Calculator Operator View Findings, Lines and Tubes: None. Visualized Chest: A 2 mm left lower lobe nodule is stable since 2017 and considered benign. There are geographic groundglass opacities at the lung bases, similar to prior CT from 2017. No pleural effusion. The heart is normal in size. No pericardial effusion. Diaphragm: Normal. Liver: Hepatomegaly with craniocaudal length measuring 23.7 cm, not significantly changed. Diffuse low-attenuation throughout the liver parenchyma consistent with hepatic steatosis. No evidence of mass. A subcentimeter hypodensity in the left lobe is stable since 2017, most likely a cyst. Gallbladder: No CT evidence of gallbladder pathology. Bile ducts: No biliary ductal dilation. Spleen: Normal. Pancreas: Normal. Adrenal glands: Bilateral adrenal nodules each measuring 1.7 cm have not significantly changed since 2017, considered benign Kidneys and ureters: Bilateral nonobstructing stones measuring up to 2 mm. No hydronephrosis or suspicious masses. Bladder: Normal. Reproductive organs: Unremarkable. Stomach, small bowel, and large bowel: Anastomotic sutures in the left lower quadrant small bowel loop with patulous appearance of the adjacent segment. No evidence of bowel obstruction. Antimesenteric wall of the transverse colon protrudes through a supraumbilical ventral defect as described. Moderate degree of colonic stool retention in the right hemicolon and transverse colon. Left hemicolon is decompressed. Appendix: Not seen, but no evidence of appendicitis. Peritoneum and retroperitoneum: No ascites or pneumoperitoneum. No omental or mesenteric lesions. Lymph nodes: No enlarged lymph nodes. Blood vessels: Normal. No aneurysm. No evidence of venous thrombosis. Abdominal and pelvic wall: A supraumbilical ventral hernia with a neck measuring 2.9 x 2.5 cm contains antimesenteric wall of the transverse colon. No associated inflammatory change. No evidence of bowel obstruction. Postsurgical changes in the anterior abdominal wall with mesh anchors in place. Bones: No acute abnormality. IMPRESSION: 1. Supra umbilical ventral hernia contains antimesenteric wall of the transverse colon. No evidenceof bowel obstruction or associated inflammatory change. 2. Unchanged hepatomegaly and diffuse steatosis. 3. Geographic attenuation of the visualized lungs is similar to prior study from 2017. Differentialdiagnosis is broad and includes air trapping, atypical inflammation, and pulmonary edema. 4. Stable indeterminate adrenal nodules, considered benign. 5. Additional chronic findings as detailed above. WSN: [id number] Ordering Physician: Gin Gutiérrez Dictated By: Rick Palomino MD Dictated Date/Time: 08/06/22 7:55 pm Reviewed By: Rick Palomino MD Signed By: Rick Palomino MD Signed Date/Time: 08/06/22 7:55 pm Transcribed By: BEBO Transcribed Date/Time: 08/06/22 7:42 pm Vital Signs Most recent to oldest [Reference Range]: 1 2 3 Height 163 cm (08/07/22 2:19 AM) 163 cm (08/06/22 12:15 PM) 163 cm (08/06/22 11:21 AM) Weight 76.5 kg (08/07/22 2:19 AM) 79 kg (08/06/22 12:15 PM) 79 kg (08/06/22 11:21 AM) Oxygen Saturation [94-100 %] 97 % (08/07/22 7:35 AM) 98 % (08/07/22 2:19 AM) 100 % (08/06/22 10:24 PM) Pulse Rate [55-90 bpm] 71 bpm (08/07/22 7:35 AM) 71 bpm (08/07/22 2:19 AM) 74 bpm (08/06/22 10:24 PM) Body Mass Index [18.5-24.99 kg/m2] 28.79 kg/m2 *H* (08/07/22 2:19 AM) 29.73 kg/m2 *H* (08/06/22 11:21 AM) Blood Pressure [90-138/55-84 mm Hg] 104/67mm Hg (08/07/22 7:35 AM) 130/77mm Hg (08/07/22 2:19 AM) 115/86mm Hg (08/06/22 10:24 PM) Respiratory Rate [16-30 br/min] 18 br/min (08/07/22 7:35 AM) 18 br/min (08/07/22 4:07 AM) 18 br/min (08/07/22 2:19 AM) Temperature [96.8-100.4 DegF] 97.8 DegF (08/07/22 7:35 AM) 98.0 DegF (08/07/22 2:19 AM) 98.1 DegF (08/06/22 3:43 PM) Mode of Delivery (Oxygen) Room air (08/07/22 7:35 AM) Room air (08/07/22 2:19 AM) Room air (08/06/22 10:24 PM) Blood pressure sites Arm, left (08/07/22 7:35 AM) Arm, left (08/07/22 2:19 AM) Arm, right (08/06/22 10:24 PM) Temperature Route Oral (08/07/22 7:35 AM) Oral (08/07/22 2:19 AM) Oral (08/06/22 3:43 PM) Dry Weight 76.5 kg (08/07/22 2:19 AM) 79 kg (08/06/22 12:15 PM) 79 kg (08/06/22 11:21 AM) Weight Obtained Via Bed scale (08/07/22 2:19 AM) Patient/family stated (08/06/22 11:21 AM) Dry Weight Obtained Via Patient/family stated (08/06/22 11:21 AM) Social History Social History Type Response Smoking Status 5-9 cigarettes (betw een 1/4 to 1/2 pack)/day in last 30 days; Interested in cessation: Yes; Patient wants NRT during admission No entered on: 08/07/22 Sex History and physical note * Yohan Louis MD: MODIFY, SIGN, VERIFY, PERFORM Event Display: History and Physical Hospital Authored Date: [id number] Patient: SABA QUESADA Age: 46 years Sex: Female : 1975 Associated Diagnoses: None Author: Yohan Louis MD Visit Information Consulting Physician: Dr Cortes Consulted Resident Physician: Dr. Louis Consulted Attending Physician: Dr. Root Reason for Consult: Hernia History of Present Illness 46-year-old with a history of anxiety, depression, obesity and diabetes as well as multiple previous abdominal surgeries including 4 C-sections, laparoscopic lysis of adhesions with ventral hernia repair, and most recently in March 2022 exploratory laparotomy and small bowel resection for closed-loop small bowel obstruction. She presents today with a bulge and abdominal pain in the midline justabove her umbilicus. She has noticed this for the past 2 days. In the past 2 days it has enlarged and she felt that her abdomen is slightly more distended than usual. She denies fevers, chills, nausea, vomiting and has been passing regular gas and bowel movements. At about 10 AM today the pain increased, did not respond to p.o. pain medications at home and so she presented to the emergency department. No sick contacts at home. CT scan was obtained and general surgery was consulted. Past Medical History Problem list All Problems Anxiety depression / SNOMED CT 627967824 / Confirmed Obesity / SNOMED CT 8108307508 / Confirmed Seroma / SNOMED CT 34534527 / Confirmed Allergies Allergic Reactions (Selected) Severity Not Documented Aspirin- Very nauseaus. Penicillin- Hives. Current medications (Selected) Inpatient Medications Ordered Acetaminophen Tablet: 650 mg, Tablet, By Mouth, Every 4 hours, PRN for Pain , Mild, Routine, 08/07/22 1:38:00 EST Enoxaparin Inj: 40 mg, Injection, Subcutaneous Injection, Daily, Routine, 08/07/22 9:00:00 EST HYDROmorphone Inj: 0.5 mg, Injection, IV Push Slowly, Every 3 hours, PRN for Pain , Severe, Routine, 08/07/22 1:38:00 EST Insulin LISPRO Sliding Scale: 2-10 units, Injection, Subcutaneous Injection, Every 4 hours, Routine, 08/07/22 2:00:00 EST LR 1,000 mL: 1,000 mL, Infusion, IV Infusion, 1,000 mL, 100 mL/hr, Infuse over 10 hr, Continue until D/C'd Unless duration specified, Routine, 08/07/22 1:38:00 EST, 1.85, m2 MorPHINE Inj: 4 mg, Injection, IV Push Slowly, Every 5 minutes for 3 doses/times, PRN for Pain , Moderate, and SBP greater than 100, Routine, 08/06/22 16:46:00 EST, Stop date Limited # of times Ondansetron Inj: 4 mg, Injection, IV Push, Every 8 hours, PRN for Nausea & Vomiting, Routine, 08/07/22 1:38:00 EST Pantoprazole Tablet: 20 mg, EC Tablet, By Mouth, Daily, Indicated for: GERD, Routine, 08/07/22 9:00:00 EST ibuprofen 600 mg oral tablet: 600 mg, Tablet, By Mouth, 3 times a day, PRN for Pain , Mild, Routine, 08/07/22 1:39:00 EST oxyCODONE 5 mg oral tablet: 5 mg, Tablet, By Mouth, Every 6 hours, PRN for Pain , Moderate, Routine, 08/07/22 1:39:00 EST Prescriptions Prescribed Compression Stockings: See Instructions, # 2 each, Maintenance, surgical, knee length 20-30 mm Hg, 12/07/21 10:47:00 EDT, Supply gabapentin 100 mg oral capsule: 200 mg, 2, capsule, By Mouth, 3 times a day, # 60 capsule, Refills 0, Tot. Refills 0, Maintenance, 04/22/22 15:41:00 EST, Route to Pharmacy Electronically, [facility] #[id number], Partial fill upon patient request if the prescription is for a rex... Documented Medications Documented Janumet XR 50 mg-1000 mg oral tablet, extended release: 1 tablet, By Mouth, Daily in PM, # 30 tablet, 0 Refills, Maintenance, 10/15/21 11:30:00 EDT, ER Tablet, Partial fill upon patient request if the prescription is for a schedule II opioid drug. Surgical History Procedure/Surgical Profile Enterectomy, resection of small intestine; single resection and anastomosis (62064) on 04/10/2022 at 46 Years. Exploratory laparotomy, exploratory celiotomy with or without biopsy(s) (separate procedure) (42386) on 04/10/2022 at 46 Years. Comments: 04/10/2022 0:34 JIA Barnes MD, Neisha lysis of adhesions >2 hours delivery & tubal ligation in 2008 at 33 Years. Comments: 10/27/2009 13:30 JIA Palacio MD , Adrienne Andersen stillbirth- hydrops delivery only; in 2004 at 29 Years. delivery only; in 2002 at 27 Years. delivery only; (37908) in 1998 at 23 Years. Laparoscopic-assisted CECY, incisional hernia repair with mesh, pfannenstiel incision for open CECY. Social History Smokes half a pack a day used to smoke a pack per day for 20 years No alcohol No drugs Social History Alcohol Details: Use: Never. Substance Abuse Details: Use: Never. Tobacco Details: Current every day smoker . Family History Patient denies any past family history of herniae Review of Systems Constitutional: No fevers, chills, or fatigue Eyes: No changes in vision ENT: No difficulty swallowing or hemoptysis Cardiovascular: No chest pain or palpitations Respiratory: no SOB, cough or wheezes Gastrointestinal: Per HPI Genitourinary: No dysuria Musculoskeletal: No stiffness or swelling Integumentary: no rashes Neurological: no headaches or numbness Endocrine: no excessive thirst or sweating Physical Examination Vitals: VSS Physical Exam: Constitutional: No acute distress, awake, alert and oriented x3 Cardiovascular: Regular rate and rhythm, +S1/S2, no murmurs, rubs, or gallops, no edema, 2+ dorsalis pedia bilaterally Respiratory: Clear to auscultation bilaterally, no wheezes, rales, rhonchi, or crackles Abdomen: soft, tender had a 2 x 2 centimeter bulge superior to the umbilicus. Reducible. Approximately 1.5 cm fascial defect. Tender despite reduction. No signs of peritonitis. Gastrointestinal: bowel sounds present Genitourinary: no CVA tenderness Musculoskeletal: no calf tenderness Skin: Midline exploratory laparotomy scar well-healed, Pfannenstiel incision is well-healed. Neurological: no loss of sensation bilaterally Lymphatic: no lymphedema or hepatosplenomegaly Vital Signs Weight : Weight lb/oz 08/06/2022 12:15 EST Weight lb/oz 174 lb 3 oz 08/06/2022 11:21 EST Weight lb/oz 174 lb 3 oz . BMI : Body Mass Index 08/06/2022 11:21 EST Body Mass Index 29.73 kg/m2 H . Results Review BLOOD COUNT & DIFF WBC 8.5 k/mm3 () 08/06/2022 15:17 RBC 4.36 m/mm3 () 08/06/2022 15:17 Hgb 13.2 Gm/dL () 08/06/2022 15:17 Hct 38.5 % () 08/06/2022 15:17 MCV 88.3 femtoliters () 08/06/2022 15:17 MCH 30.3 pg () 08/06/2022 15:17 MCHC 34.3 g/dL () 08/06/2022 15:17 Platelet Count 278 k/mm3 () 08/06/2022 15:17 RDW-SD 41.4 femtoliters () 08/06/2022 15:17 MPV 11.1 femtoliters () 08/06/2022 15:17 Nucleated RBC (Automated) 0.0 #/100 WBC'S () 08/06/2022 15:17 Abs. NRBC 0.0 k/mm3 () 08/06/2022 15:17 Abs. Neut 5.0 k/mm3 () 08/06/2022 15:17 Abs. Lymph 2.5 k/mm3 () 08/06/2022 15:17 Abs. [place] 0.7 k/mm3 () 08/06/2022 15:17 Abs. Eo 0.2 k/mm3 () 08/06/2022 15:17 Abs. Baso 0.1 k/mm3 () 08/06/2022 15:17 Neut % 58.6 % () 08/06/2022 15:17 Lymph % 28.9 % () 08/06/2022 15:17 [place] % 8.6 % () 08/06/2022 15:17 Eos % 1.9 % () 08/06/2022 15:17 Baso % 0.9 % () 08/06/2022 15:17 Imm Gran 1.1 % () 08/06/2022 15:17 Abs. Imm Gran 0.1 k/mm3 () 08/06/2022 15:17 CHEM GENERAL Sodium 134 mmol/L () 08/06/2022 15:17 Potassium 4.5 mmol/L () 08/06/2022 15:17 Chloride 97 mmol/L (Low) 08/06/2022 15:17 Bicarbonate Level 23 mmol/L () 08/06/2022 15:17 Anion Gap 14 () 08/06/2022 15:17 Glucose Level 272 mg/dL (High) 08/06/2022 15:17 BUN 14 mg/dL () 08/06/2022 15:17 Creatinine-Blood 0.6 mg/dL () 08/06/2022 15:17 Estimated GFR Creatinine 113 ML/MIN/1.73 M2 () 08/06/2022 15:17 Calcium 10.4 mg/dL () 08/06/2022 15:17 Protein, Total 7.4 Gm/dL () 08/06/2022 15:17 Albumin 4.6 Gm/dL () 08/06/2022 15:17 AG Ratio 1.6 () 08/06/2022 15:17 Alkaline Phosphatase 54 units/L () 08/06/2022 15:17 Lipase 36 units/L () 08/06/2022 15:17 AST (SGOT) 9 units/L () 08/06/2022 15:17 ALT (SGPT) 10 units/L () 08/06/2022 15:17 Bilirubin, Total 0.2 mg/dL () 08/06/2022 15:17 Lactate 2.5 mmol/L (High) 08/06/2022 15:17 ENDOCRINE/TUMOR MARKER Serum Qual NEGATIVE mIU/mL () 08/06/2022 15:17 HEME OTHER Hold Blue Top SPECIMEN DISCARDED AFTER 4 HOURS. () 08/06/2022 15:17 UA/URINALYSIS Appear/Color, Urine LIGHT YELLOW () 08/06/2022 17:35 Specific Garvin, Urine 1.015 () 08/06/2022 17:35 pH, Urine 6.5 () 08/06/2022 17:35 Albumin, Urine NEGATIVE () 08/06/2022 17:35 Glucose, Urine 1+ (Abnormal) 08/06/2022 17:35 Ketones, Urine NEGATIVE () 08/06/2022 17:35 Bilirubin, Urine NEGATIVE () 08/06/2022 17:35 Hemoglobin, Urine NEGATIVE () 08/06/2022 17:35 Nitrite, Urine NEGATIVE () 08/06/2022 17:35 Leukocyte, Urine NEGATIVE () 08/06/2022 17:35 Urobilinogen NORMAL mg/dL () 08/06/2022 17:35 WBC's, Urine 3 /HPF () 08/06/2022 17:35 RBC's, Urine 1 /HPF () 08/06/2022 17:35 Squamous Epith 1 /HPF () 08/06/2022 17:35 Amorphous Crystals MODERATE /HPF () 08/06/2022 17:35 Mucus SLIGHT /LPF () 08/06/2022 17:35 Hold Urine Culture Testing available 48 hours from time of collection. () 08/06/2022 17:35 VIROLOGY COVID-19 POC Result NEGATIVE () 08/06/2022 11:36 * Final Report * Reason For Exam distention s/p ex lap last year;Postop RESULT: CT Abd/Pelvis W/ IV + Oral Contrast CT Abd/Pelvis W/ IV + Oral Contrast Hx of Present Illness: abd pain; Reason: Postop; distention s p ex lap last year; Clinical Question(s): Obstruction; Order Comment: TECHNIQUE: Spiral CT through the abdomen and pelvis with IV contrast formatted in 3 planes. 100 cc of Omnipaque 300 was administered intravenously. This study was performed with oral contrast. Weight-based protocol using automatic tube modulation was used to optimize exposure parameters. CTDIvol Body: 18.10 mGy, DLP Body: 990 mGy*cm. COMPARISON: Multiple prior studies, most recent on 04/08/2022. FINDINGS: Calculator Operator View Findings, Lines and Tubes: None. Visualized Chest: A 2 mm left lower lobe nodule is stable since 2017 and considered benign. There are geographic groundglass opacities at the lung bases, similar to prior CT from 2017. No pleural effusion. The heart is normal in size. No pericardial effusion. Diaphragm: Normal. Liver: Hepatomegaly with craniocaudal length measuring 23.7 cm, not significantly changed. Diffuse low-attenuation throughout the liver parenchyma consistent with hepatic steatosis. No evidence of mass. A subcentimeter hypodensity in the left lobe is stable since 2017, most likely a cyst. Gallbladder: No CT evidence of gallbladder pathology. Bile ducts: No biliary ductal dilation. Spleen: Normal. Pancreas: Normal. Adrenal glands: Bilateral adrenal nodules each measuring 1.7 cm have not significantly changed since 2017, considered benign Kidneys and ureters: Bilateral nonobstructing stones measuring up to 2 mm. No hydronephrosis or suspicious masses. Bladder: Normal. Reproductive organs: Unremarkable. Stomach, small bowel, and large bowel: Anastomotic sutures in the left lower quadrant small bowel loop with patulous appearance of the adjacent segment. No evidence of bowel obstruction. Antimesenteric wall of the transverse colon protrudes through a supraumbilical ventral defect as described. Moderate degree of colonic stool retention in the right hemicolon and transverse colon. Left hemicolon is decompressed. Appendix: Not seen, but no evidence of appendicitis. Peritoneum and retroperitoneum: No ascites or pneumoperitoneum. No omental or mesenteric lesions. Lymph nodes: No enlarged lymph nodes. Blood vessels: Normal. No aneurysm. No evidence of venous thrombosis. Abdominal and pelvic wall: A supraumbilical ventral hernia with a neck measuring 2.9 x 2.5 cm contains antimesenteric wall of the transverse colon. No associated inflammatory change. No evidence of bowel obstruction. Postsurgical changes in the anterior abdominal wall with mesh anchors in place. Bones: No acute abnormality. IMPRESSION: 1. Supra umbilical ventral hernia contains antimesenteric wall of the transverse colon. No evidenceof bowel obstruction or associated inflammatory change. 2. Unchanged hepatomegaly and diffuse steatosis. 3. Geographic attenuation of the visualized lungs is similar to prior study from 2017. Differentialdiagnosis is broad and includes air trapping, atypical inflammation, and pulmonary edema. 4. Stable indeterminate adrenal nodules, considered benign. 5. Additional chronic findings as detailed above. Impression and Plan 46-year-old woman who presents with hernia at the site of her previous exploratory laparotomy from March last year. At the time my review the patient was vitally stable. Her abdominal exam was notable for a reducible hernia in the midline supraumbilically with a 1.5 cm fascial defect. The hernia site remained tender following reduction. Labs did not reveal leukocytosis however there was a lactate of 2.5 which was persistent despite fluid boluses. CT scan was concerning for a hernia with a 2.9x 2.5 cm protrusion of the antimesenteric wall of the transverse colon. At this time these findingsare concerning for a right wrist hernia. The hernia was able to be reduced at bedside and remained reduced. Given his findings we will admit the patient to the surgical team for close monitoring, p.o. trial the patient with clear liquids, provide p.o. analgesia and continue to monitor. Should the patient improve in the next 6 hours we will discuss possible operative intervention. Should she improve she can be sent home with hernia precautions with plans for elective repair in the coming months. Plan: - Diet: CLD - Admit to [facility] - Trend lactates - mIVF - Tight glucose control Q4h POC & ISS - Pain control: Po - DVT Prophylaxis: SCDs, LVN[place] [phone] with any questions This patient was discussed with ??Ivett EKG study * Event Display: EKG Authored Date: Hospital Progress note * Tressa Bahena RN: PERFORM, SIGN, VERIFY Event Display: Progress Note Hospital Authored Date: Patient: SABA QUESADA Age: 46 years Sex: Female : 1975 Associated Diagnoses: None Author: Tressa Bahena RN Findings Narrative/Incidental Pt discharged home with family, discharge instructions given.. * Rachana Arroyo RN: PERFORM, SIGN, VERIFY Event Display: Progress Note Hospital Authored Date: Patient: SABA QUESADA Age: 46 years Sex: Female : 1975 Associated Diagnoses: None Author: Rachana Arroyo RN Findings Problem Related to Alteration in Gastrointestinal : Alteration in Gastrointestinal Func/new 08/07/2022 2:00 EST Alteration in GI status Related to Other: umbilical hernia Goals & Outcomes, Gastrointestinal Establish a regular pattern of elimination for pt, Nutritional intake is adequate for metabolic needs, Pt will achieve normal/improved fluid balance, Pt will have a bowel movement prior to discharge, Pt will maintain adequate GI function appropriate for pt, Ptwill maintain normal elimination patterns, Pt will resume/maintain adequate hemodynamic status, Pt w ill tolerate age appropriate diet prior to discharge Interventions, Gastrointestinal Assess/monitor abdomen for distention, tenderness, Assess/monitor abdominal girth & bowel function, Assess/monitor bowel pattern, bowel sounds, flatus, Assess/monitor number of bowel movements, Assess/monitor color, quantity, quality, consistency of stoo, Assess/monitor pt for nausea, vomiting, Assess/monitor effects of re-hydration, Assess/monitor intake &output, Assess if pt tolerating diet, DVT prophylaxis as ordered, Teach/encourage deep breath &cough exercises, Teach/encourage use of incentive spirometer . Nursing Data Gastrointestinal Data. : Gastrointestinal Data. 08/07/2022 2:29 EST Gastrointestinal Symptoms None Abdomen Soft, Tender, Distended Bowel Sounds LUQ Present Bowel Sounds RUQ Present Bowel Sounds LLQ Present Bowel Sounds RLQ Present Last Bowel Movement 08/06/2022 GI WNL except . Vital Signs : VITAL SIGNS SECTION 08/07/2022 2:19 EST Temperature 98.0 DegF Temperature Route Oral Pulse Rate 71 bpm Respiratory Rate 18 br/min Systolic Blood Pressure 130 mm Hg Diastolic Blood Pressure 77 mm Hg Blood pressure sites Arm, left Mean Arterial Pressure 95 mm Hg Pulse Pressure 53 mm Hg Oxygen Saturation 98 % Mode of Delivery (Oxygen) Room air . Narrative/Incidental Received Pt from ED. Pt is alert and oriented x 3. Lungs are CTA, On RA. Pedal pulses are palpable,no edema noted. Ambulates OOB independently. Previous surgical scar noted on the mid abdomen. Plan of care explained to the pt and agreed. . Evaluation P : Alteration in gastrointestinal function I : See interventions listed in care plan above. E: Pt reports mid umbilical pain, adequate pain control with IV Dilaudid. Abdomen is soft ,mildly distended and TTP mid umbilical area, bowel sounds are positive. Denies nausea or vomiting. Pt does report belching and flatus, last BM was 08/06. Tolerates CLD. IVF administered as per the order. Progressing along plan of care.. Note * Tressa Bahena RN: PERFORM Event Display: Discharge/Transfer Note Hospital Authored Date: [id number] Nursing Discharge Note Entered On: 08/07/2022 11:10 EST Performed On: 08/07/2022 11:09 EST by Tressa Bahena RN Nursing Discharge Note 2 Discharge Time : 08/07/2022 11:10 EST Discharge Level of Care at Discharge : Home/Prison/Foster Care Patient Left Unit Via : Ambulatory Patient Accompanied Off Unit with : Responsible adult DC Instructions Provided & Signed by Pt : Yes Patient Understands D/C Instructions : Yes Patient Instructions Discharge Signed : Yes Did Pt have Specialty Bed or Wound Vac : No Tressa Bahena RN - 08/07/2022 11:09 EST * Skyler Pittman MD: PERFORM, MODIFY, MODIFY, SIGN, VERIFY Event Display: Discharge/Transfer Note Hospital Authored Date: [id number] Patient: SABA QUESADA Age: 46 years Sex: Female : 1975 Associated Diagnoses: None Author: Skyler Pittman MD Discharge Information Admission Date: 08/07/2022 Discharge Date 08/07/2022 Principal Discharge Diagnosis Abdominal pain. Aware of diagnosis: patient. Discharge condition: good Compared to admission: improved Code status: Full Hospital Course Ms. Quesada is a 46-year-old female who presented with hernia at the site of her previous exploratory laparotomy from March last year. At admission, her abdominal exam was notable for a reducible hernia in the midline supraumbilically with a 1.5 cm fascial defect. The hernia site remained tender following reduction. Admission labs were remarkable for lactate of 2.5. CT scan was obtained, and concerning for a hernia with a 2.9 x 2.5 cm protrusion of the antimesenteric wall of the transverse colon. Pt was admitted and managed on clear liquid diet. She was reevaluated this AM, and states that herpain is significantly improved. She is tolerating clear liquid diet without any nausea/vomiting. She is ambulating, and voiding appropriately. She has not had any bowel movement, but is passing gas. She was therefore transitioned to diabetic diet, which she tolerated without issues. Patient no longer requires inpatient level of care, and would therefore be discharged home today. All outpatient medications has been sent to [facility] [place] [place] pharmacy for pickup. Constitutional: No acute distress, awake, alert and oriented x3 Cardiovascular: Regular rate and rhythm, +S1/S2, no murmurs, rubs, or gallops, no edema, 2+ dorsalis pedia bilaterally Respiratory: Clear to auscultation bilaterally, no wheezes, rales, rhonchi, or crackles Abdomen: soft, nontender had a 2 x 2 centimeter bulge superior to the umbilicus. Reducible. Approximately 1.5 cm fascial defect. No rebound or guarding. No signs of peritonitis. Gastrointestinal: bowel sounds present Genitourinary: no CVA tenderness Musculoskeletal: no calf tenderness Skin: Midline exploratory laparotomy scar well-healed, Pfannenstiel incision is well-healed. Neurological: no loss of sensation bilaterally Lymphatic: no lymphedema or hepatosplenomegaly Case discussed with Dr. Root Discharge Plan Discharge Disposition Discharge: home. Prescription Given this visit:No new prescriptions during this visit. Patient Instructions Given:No qualifying data available Education Given:What Is a Hernia? Hernia (Adult) Patient Follow-up: Scheduled Date/Time 08/24/2022 9:20 am Appointment Type Return Location *[facility] Reason for visit UMBILICAL HERNIA * Josef GARCIA, Tressa: PERFORM, MODIFY Event Display: Patient Education/Instruction Authored Date: [id number] Inpatient Adult Discharge Instructions [address] [address] Name: SABA QUESADA : 1975 Visit: 08/07/2022 01:08:00 Current Date: 08/07/2022 10:02 Account: [id number] Inpatient Adult Discharge Instructions We would like to thank you for allowing us to assist you with your healthcare needs. The following includes patient education materials and information regarding your injury/illness. Our entire staffstrives to provide an excellent experience for our patients and their families. PLEASE ENSURE YOU FOLLOW-UP PER THE INSTRUCTIONS BELOW! ?? YOUR OPINION IS IMPORTANT TO US! Please complete the survey you may receive by mail or email. Your feedback will be used to make improvements to the healthcare experiences of our patients and their families. Surveys are administered by [employer] ?? If further treatment with your primary care physician or another doctor is recommended, it is important for you to keep the appointment. Call your primary care physician or return to the Emergency Department immediately if your condition worsens, fails to improve, or new symptoms develop. If you need to find a doctor, you can call [facility] for a referral at [phone] or toll free at [phone] or log in to [email or web address].. ?? You can view and manage your care through the patient portal or by using a health care obie of your choosing. [employer] is a website that allows you to securely view your medical information including your hospital discharge summary, office visit summaries, medications and follow-up visits. You can also request appointments, renew medications, and request access to your medical information using a health care obie of your choosing, or just ask a question. You can enroll at [email or web address] or register during your next office visit. You have been discharged from [facility], Patient Care Unit: SW6. If you have any questions regarding these instructions after you leave, please call us and we will be happy to assist you. [facility] Your Care Team Attending Physician Ivett POTTER MD, Vineet Fajardo Discharging Providers Zain MARTINEZ, Skyler Coker Reason for Admission Abdominal pain Your Diagnosis Hernia Tests Performed Below is a partial list of the tests performed during your hospitalization. You may have had other tests and procedures not included in this list. Please discuss all test results with your provider. CBC w/ Differential Comprehensive Metabolic Panel COVID-19 RNA POC GLUCOSE POC Hold Blue Top Tube HOLD GEL TUBE HOLD LAVENDER TUBE Lactate Level Lactic Acid Level Lipase Serum Qualitative Urinalysis w/hold for Urine Culture CT Abd/Pelvis W/ IV + Oral Contrast Primary Care Provider Not on Staff, PCP Advance Directive Health Care Proxy on File No Discharge Vitals Temperature: 97.8 DegF Height: 163 cm Pulse Rate: 71 bpm Weight: 76.5 kg Respiratory Rate: 18 br/min Body Mass Index:??28.79 kg/m2??High Systolic Blood Pressure: 104 mm Hg Body surface area: 1.86 Diastolic Blood Pressure: 67 mm Hg ?? Oxygen Saturation: 97 % ?? Studies Pending All tests and labs ordered during this hospital stay have been completed unless listed below. Please discuss all pending results with your provider listed above in these instructions. ?? BUN CBC Creatinine Electrolytes (Lytes) Ionized Calcium Lactic Acid Level (Lactate Level) Magnesium Level Phosphorus Level What to do next Instructions From Your Doctor Discharge Orders Scheduled Follow-Up Appointments Tuesday. 2022 9:20 AM EDT ?? With: Sandee MARTINEZ, Juan Diego Mcfadden Where: Trauma Surg [address] [place] [address]- Discharge Medications SABA QUESADA :1975 Visit Date:08/07/2022 Medications: Please continue your medications until treatment is completed or stopped by your provider. Medications not listed below should be discontinued. Discuss any questions related to medications with your provider. What How Much When Instructions Next Dose Unchanged Durable Medical Equipment (Compression Stockings) See instructions surgical, knee length 20-30 mm Hg ?? Unchanged Gabapentin (gabapentin 100 mg oral capsule) 2 capsule Oral 3 times a day Duration: 10 Days 08-07-22 Unchanged metformin-sitagliptin (Janumet XR 50 mg-1000 mg oral tablet, extended release) 1 tab(s) Oral Daily in PM 08-07-22 Test Results Below is a partial list of the most recent Laboratory test results done prior to this discharge. You may have had other tests and procedures not included in this list. Please discuss all test resultswith your provider. CBC w/ Differential (08/06/2022) ???WBC - 8.5 k/mm3???RBC - 4.36 m/mm3???Hgb - 13.2 Gm/dL???Hct - 38.5 %???MCV - 88.3 femtoliters???MCH - 30.3 pg???MCHC - 34.3 g/dL???Platelet Count - 278 k/mm3???RDW-SD - 41.4 femtoliters???MPV - 11.1 femtoliters???Nucleated RBC (Automated) - 0.0 #/100 WBC'S???Abs. NRBC - 0.0 k/mm3???Abs. Neut - 5.0 k/mm3???Abs. Lymph - 2.5 k/mm3???Abs. [place] - 0.7 k/mm3???Abs. Eo - 0.2 k/mm3???Abs. Baso - 0.1 k/mm3???Neut % - 58.6 %???Lymph % - 28.9 %???[place] % - 8.6 %???Eos % - 1.9 %???Baso % - 0.9 %???Imm Gran - 1.1 %???Abs. Imm Gran - 0.1 k/mm3 Comprehensive Metabolic Panel (08/06/2022) ???Sodium - 134 mmol/L???Potassium - 4.5 mmol/L???Chloride - 97 mmol/L???Bicarbonate Level - 23 mmol/L???Anion Gap - 14???Glucose Level - 272 mg/dL???BUN - 14 mg/dL???Creatinine-Blood - 0.6 mg/dL???Estimated GFR Creatinine - 113 ML/MIN/1.73 M2???Calcium - 10.4 mg/dL???Protein, Total - 7.4 Gm/dL???Al bumin - 4.6 Gm/dL???AG Ratio - 1.6???Alkaline Phosphatase - 54 units/L???AST (SGOT) - 9 units/L???ALT (SGPT) - 10 units/L???Bilirubin, Total - 0.2 mg/dL COVID-19 RNA POC (08/06/2022) ???COVID-19 POC Result - NEGATIVE GLUCOSE POC (08/07/2022) ???Glucose, POC - 143 mg/dL Hold Blue Top Tube (08/06/2022) ???Hold Blue Top - SPECIMEN DISCARDED AFTER 4 HOURS. HOLD GEL TUBE (08/07/2022) ???Hold Gel Top - SPECIMEN DISCARDED AFTER 1 WEEK HOLD LAVENDER TUBE (08/07/2022) ???Hold Lavender Top - SPECIMEN DISCARDED AFTER 24 HOURS. Lactate Level (08/07/2022) ???Lactate - 1.0 mmol/L Lactic Acid Level (08/06/2022) ???Lactate - 2.5 mmol/L Lipase (08/06/2022) ???Lipase - 36 units/L Serum Qualitative (08/06/2022) ??? Serum Qual - NEGATIVE Urinalysis w/hold for Urine Culture (08/06/2022) ???Appear/Color, Urine - LIGHT YELLOW???Specific Garvin, Urine - 1.015???pH, Urine - 6.5???Albumin, Urine - NEGATIVE???Glucose, Urine - 1+???Ketones, Urine - NEGATIVE???Bilirubin, Urine - NEGATIVE???Hemoglobin, Urine - NEGATIVE???Nitrite, Urine - NEGATIVE???Leukocyte, Urine - NEGATIVE???Urobilinogen - NORMAL???WBC's, Urine - 3 /HPF???RBC's, Urine - 1 /HPF???Squamous Epith - 1 /HPF???Amorphous Cry stals - MODERATE???Mucus - SLIGHT???Hold Urine Culture - Testing available 48 hours from time of collection. Allergies (NKA means No Known Allergies) aspirin??(Very Nauseaus) penicillin??(Hives) Problems Active Problems??(3) Anxiety depression?? Obesity?? Seroma?? Education Materials Below is the list of Educational Leaflet Providered with your Discharge Instructions. What Is a Hernia??? Hernia (Adult)?? Valuables and Belongings I fully understand and agree that [facility] accepts no responsibility for all my personal property including clothing, toilet articles, radios, jewelry, dentures, hearing aids, rings, money, or any other property that is in my possession or is brought to me after admission. I understand certain valuables may be placed in a hospital safe for a short period of time. I understand that the hospital is not liable for loss or damage due to accident, fire, or other natural occurrence while said property is in the safe. I accept full responsibility for any personal property that I keep with me, and will not hold the hospital responsible in case of loss or disappearance. I acknowledge that i have been encouraged to send valuables and belongings home. ?? Date for Pt to Sign Valuables/Belongings: 08/07/22 02:20:00 ?? Other Discharge Information ? Pulmonary Rehab Status?? Pulmonary Rehab Discharge Status?? Respiratory Rate: 18 br/min ? Common Emergency Awareness Tips IS IT A STROKE? Act FAST and Check for these signs: FACE Does the face look uneven? ARM Does one arm drift down? SPEECH Does their speech sound strange? TIME Call at any sign of stroke ?? Heart Attack Signs Chest discomfort: Most heart attacks involve discomfort in the center of the chest and lasts more than a few minutes, or goes away and comes back. It can feel like uncomfortable pressure, squeezing, fullness or pain. Discomfort in upper body: Symptoms can include pain or discomfort in one or both arms, back, neck, jaw or stomach. Shortness of breath: With or without discomfort. Other signs: Breaking out in a cold sweat, nausea, or lightheaded. Remember, MINUTES DO MATTER. If you experience any of these heart attack warning signs, call to get immediate medical attention! ?? Smoking can increase your chances of developing chronic health problems and can cause harmful effects to other family members in your house. If you smoke, you are strongly encouraged to quit. Please call [facility] Link at [phone] or [phone] [phone]) or log in to [email or web address] for referrals to smoking cessation programs. ?? The National Suicide Prevention Hotline is available 03/01 if you or someone you know needs to find a reason to keep living. By calling 7-443-954-SPHARES (1491) you'll be connected to a skilled, trained counselor at a crisis center in your area. INPATIENT DISCHARGE INSTRUCTIONS SIGNATURE SABA MCGEE Location:[facility] Registration Date and Time:08/07/2022 01:08 EST Primary Care Physician: Not on Staff, PCP SABA SMITH, have received the above patient education materials/instructions and have verbalized understanding. If ambulance or transport services are being used I further acknowledge being given a choice of service. ?? If you need to contact me, please call me at this number: . Patient/Sports Marketing Specialist Name: Patient/Sports Marketing Specialist Signature: Relationship to Patient: Witness Name/Signature: Date: * Skyler Pittman MD: PERFORM Event Display: Patient Education Leaflets Authored Date: [id number] What Is a Hernia? ?? [id number] What Is a Hernia? A hernia is when an organ or tissue pushes through a weak spot in the belly (abdominal) wall. This weak spot may be there at . Or it may be caused by abdominal strain over time. If not treated, a hernia can get worse with time and physical stress. When a bulge forms When there is a weak spot in the abdominal wall, an organ or tissue can push outward. This often causes a bulge that you can see under your skin. The bulge may get bigger when you stand up. It may goaway when you lie down. You may also feel some pressure or mild pain when lifting, coughing, urinating, or moving. ?? Types of hernias The type of hernia you have depends on where it is. Most hernias form in the groin at or near the internal ring. This is the entrance to a canal between the abdomen and groin. Hernias can also occur in the abdomen, thigh, or genitals. ??? Incisional hernia. This occurs at the site of a previous surgical cut (incision). ??? Umbilicalhernia. This occurs at the bellybutton (navel). ??? Indirect inguinal hernia. This occurs in the groin at the internal ring. ??? Direct inguinal hernia. This occurs in the groin near the internal ring. ??? Femoral hernia. This occurs just below the groin. ??? Epigastric hernia. This occurs in the upper abdomen at the midline. Other types of hernias can occur. But they are rare. ?? Diagnosis In most cases, your healthcare provider can diagnose a hernia with a physical exam. In some cases, it might not be clear why you have swelling in the belly wall. You may need an imaging test such as an ultrasound or CT scan. This can help with the diagnosis. ?? Surgery In children, an umbilical hernia can often heal on its own. In adults, a hernia will not heal on its own. Surgery is needed to repair the weak spot in the belly wall. If not treated, a hernia can getlarger. It can cause serious health problems. Some hernias can be watched and repaired if they growbigger or start to cause symptoms. Most hernias are fixed with laparoscopic surgery. This type of surgery is done through several verysmall cuts. Some types of hernias may need surgery where a larger cut is made in the belly. In??some cases, you can go home the same day as your surgery. ?? When to call your provider Call or see your healthcare provider right away if the swelling around your??hernia becomes??larger,??firmer, or more painful. These may be??signs that your intestines are??stuck in the belly wall and their blood supply is in trouble. This is an emergency. The hernia must be repaired right away to prevent severe problems. ?? Last Reviewed Date: 2021 ?? [employer] All rights reserved. This information is not intended as a substitute for professional medical care. Always follow your healthcare professional's instructions. ?? * Zain MARTINEZ, Skyler C: PERFORM Event Display: Patient Education Leaflets Authored Date: [id number] Hernia (Adult) ?? [id number] Hernia (Adult) A hernia can happen when [...] provider ?? Last Reviewed Date: 2021 ?? [id number] [employer] All rights reserved. This information is not intended as a substitute for professional medical care. Always follow your healthcare professional's instructions. ?? CT Abdomen and Pelvis W contrast IV * BHSPowerscribe , CIS S: TRANSCRIBE Georgette MARTINEZ, Devrim: VERIFY Event Display: Result: Authored Date: [id number] CT Abd/Pelvis W/ IV + Oral Contrast Hx of Present Illness: abd pain; Reason: Postop; distention s p ex lap last year; Clinical Question(s): Obstruction; Order Comment: TECHNIQUE: Spiral CT through the abdomen and pelvis with IV contrast formatted in 3 planes. 100 cc of Omnipaque 300 was administered intravenously. This study was performed with oral contrast. Weight-based protocol using automatic tube modulation was used to optimize exposure parameters. CTDIvol Body: 18.10 mGy, DLP Body: 990 mGy*cm. COMPARISON: Multiple prior studies, most recent on 04/08/2022. FINDINGS: Calculator Operator View Findings, Lines and Tubes: None. Visualized Chest: A 2 mm left lower lobe nodule is stable since 2017 and considered benign. There are geographic groundglass opacities at the lung bases, similar to prior CT from 2017. No pleural effusion. The heart is normal in size. No pericardial effusion. Diaphragm: Normal. Liver: Hepatomegaly with craniocaudal length measuring 23.7 cm, not significantly changed. Diffuse low-attenuation throughout the liver parenchyma consistent with hepatic steatosis. No evidence of mass. A subcentimeter hypodensity in the left lobe is stable since 2017, most likely a cyst. Gallbladder: No CT evidence of gallbladder pathology. Bile ducts: No biliary ductal dilation. Spleen: Normal. Pancreas: Normal. Adrenal glands: Bilateral adrenal nodules each measuring 1.7 cm have not significantly changed since 2017, considered benign Kidneys and ureters: Bilateral nonobstructing stones measuring up to 2 mm. No hydronephrosis or suspicious masses. Bladder: Normal. Reproductive organs: Unremarkable. Stomach, small bowel, and large bowel: Anastomotic sutures in the left lower quadrant small bowel loop with patulous appearance of the adjacent segment. No evidence of bowel obstruction. Antimesenteric wall of the transverse colon protrudes through a supraumbilical ventral defect as described. Moderate degree of colonic stool retention in the right hemicolon and transverse colon. Left hemicolon is decompressed. Appendix: Not seen, but no evidence of appendicitis. Peritoneum and retroperitoneum: No ascites or pneumoperitoneum. No omental or mesenteric lesions. Lymph nodes: No enlarged lymph nodes. Blood vessels: Normal. No aneurysm. No evidence of venous thrombosis. Abdominal and pelvic wall: A supraumbilical ventral hernia with a neck measuring 2.9 x 2.5 cm contains antimesenteric wall of the transverse colon. No associated inflammatory change. No evidence of bowel obstruction. Postsurgical changes in the anterior abdominal wall with mesh anchors in place. Bones: No acute abnormality. IMPRESSION: 1. Supra umbilical ventral hernia contains antimesenteric wall of the transverse colon. No evidenceof bowel obstruction or associated inflammatory change. 2. Unchanged hepatomegaly and diffuse steatosis. 3. Geographic attenuation of the visualized lungs is similar to prior study from 2017. Differentialdiagnosis is broad and includes air trapping, atypical inflammation, and pulmonary edema. 4. Stable indeterminate adrenal nodules, considered benign. 5. Additional chronic findings as detailed above. WSN: [id number] Ordering Physician: Gin Gutiérrez Dictated By: Rick Palomino MD Dictated Date/Time: 08/06/22 7:55 pm Reviewed By: Rick Palomino MD Signed By: Rick Palomino MD Signed Date/Time: 08/06/22 7:55 pm Transcribed By: BEBO Transcribed Date/Time: 08/06/22 7:42 pm Patient Care team information Care Team Personnel Name: Jodee Staton RN Position: [facility] RN Member Role: Primary Care Nurse Name: Rachana Arroyo RN Position: [facility] RN Member Role: Primary Care Nurse Name: Saba Pool Position: [facility] Outreach Member Role: Lifetime Consulting Physician Name: Cecilia Damon RN Position: [facility] RN Member Role: Primary Care Nurse Name: Jimena Sanchez RN Position: [facility] RN Member Role: Primary Care Nurse Name: Tressa Bahena RN Position: [facility] RN Member Role: Primary Care Nurse Name: Jeannette Ribera RN Position: [facility] RN Member Role: Primary Care Nurse Name: Not on Staff, PCP Position: [facility] Physician (General Medicine) Member Role: PCP Name: Kerry CASIANO Attending Position: [facility] ED Medicine MD Name: Brandi Reed Position: [facility] Associate Professional Member Role: ED Physician Forest Botany Instructor Address: Address: [address] [place] [address] [place], [place] [address] Name: Jelly Pedro Position: [facility] ED TA [facility] Member Role: Story Teller Name: Oswaldo Suazo RN Position: S ED RN W/OE and Tasks Member Role: Patient Care Provider Care Team Related Persons Name: CHAPO FLOWER Address: [place] [address] Name: MARISELA HURLEY Address: [place] [address]
--- OUTSIDE RECORDS SUMMARY | 2022-09-05 17:20 | XMS_ITS | Continuity of Care Document ---
Author Name Unknown Organization [facility] Address [address] [place] [address]- Care Team Providers Care Scrapper Name Role Phone Simon MONTANA, Ericka Mac Primary Care Physician Encounter [facility] [place] Date(s): 07/08/21 - 08/07/21 [facility] [address] [place], [place] [address] Attending Physician: Stephanie Knott Admitting [...]
--- OUTSIDE RECORDS SUMMARY | 2022-09-05 17:20 | XMS_ITS | Continuity of Care Document ---
Author Name Unknown Organization [facility] Address [address] [place] [address] Dr ve [address] [place] [address]- Care Team Providers Care Parts Sales Advisor Name Role Phone Not on Staff, PCP Primary Care Physician Unavail able Encounter [facility] [place] Date(s): 08/24/22 - 08/31/[address] [place] [address]- Attending Physician: Juan Diego Ignacio MD Allergies, Adverse Reactions, Alerts Substance Reaction [...] 04/22/22 15:41:00 EST, Route to Pharmacy [facility]ically, [id number], Partial fill upon patient request if the [...] opioid drug. Start Date: 08/12/22 Status: Ordered Tylenol Extra Strength 500 mg oral tablet 2 tablet = 1,000 mg, By Mouth, 3 times a day, PRN Pain , Moderate, not to exceed 3000 mg/day, # 60 tablet, 0 Refills, Maintenance, 08/26/22 11:30:00 EDT, Tablet, [facility] #[id number], Partial fill upon patient request, 163, cm, 08/26/22 11:23:0... Start Date: 08/26/22 Stop Date: 09/05/22 Status: Ordered Problem List Condition Confirmation Course Effective Dates Status Health St atus Informant Anxiety depression Confirmed Active Obesity Confirmed Active Seroma Confirmed Active Vital Signs Most recent to oldest [Reference Range]: 1 Height 163 cm (08/24/22 8:58 AM) Weight 77.8 kg (08/24/22 8:58 AM) Pulse Rate [55-90 bpm] 81 bpm (08/24/22 8:58 AM) Body Mass Index [18.5-24.99 kg/m2] 29.28 kg/m2 *H* (08/24/22 8:58 AM) Blood Pressure [90-138/55-84 mm Hg] 110/ 75mm Hg (08/24/22 8:58 AM) Temperature [96.8-100.4 DegF] 97.0 DegF (08/24/22 8:58 AM) Blood pressure sites Arm, left (08/24/22 8:58 AM) Temperature Route Temporal (08/24/22 8:58 AM) Weight Obtained Via Standing scale (08/24/22 8:58 AM) Social History Social History Type Response Smoking Status 5-9 cigarettes (betw een 1/4 to 1/2 pack)/day in last 30 days; Interested in cessation: Yes; Patient wants NRT during admission No entered on: 08/07/22 Sex Patient Care team information Care Team Personnel Name: Jodee Staton RN Position: S RN Member Role: Primary Care Nurse Name: Rachana Arroyo RN Position: [facility] RN Member Role: Primary Care Nurse Name: Cecilia Damon RN Position: S RN Member Role: Primary Care Nurse Name: Jimena Sanchez RN Position: [facility] RN Member Role: Primary Care Nurse Name: Tressa Bahena RN Position: [facility] RN Member Role: Primary Care Nurse Name: Jeannette Ribera RN Position: [facility] RN Member Role: Primary Care Nurse Name: Not on Staff, PCP Position: [facility] Physician (General Medicine) Member Role: PCP Care Team Related Persons Name: CHAPO FLOWER Address: [place] [address] Name: MARISELA HURLEY Address: [place] [address]
--- OUTSIDE RECORDS SUMMARY | 2022-09-05 17:20 | XMS_ITS | Continuity of Care Document ---
Author Name Unknown Organization [facility] ter Address [address] [place] [address]- Care Team Providers Care Pension Administrator Name Role Phone Michael Ibrahim MD Primary Care Physician [phone] [place] [facility] [id number] Date(s): 12/22/21 - 12/22/[address] [address]- Encounter Diagnosis Strain of calf muscle(Final) - 12/22/21 Hyperglycemia(Final) - 12/22/21 Discharge Disposition: A-D/C Home Attending Physician: Tima Lawrence MD Admitting Physician: Tima Lawrence MD Referring Physician: Not on Staff, Referring [...] 12/01/21 12:32:00 EDT, Route to Pharmacy Electronically, [facility]#[id number], Partial fill upon patient request if the [...] Anxiety depression(Confirmed) Active Obesity(Confirmed) Active Seroma(Confirmed) Active Results Radiology Reports * Exam Date Time Procedure Performing Provider Status 12/22/21 8:57 PM Chest 2 Views Frontal and Lat Guero Ramires; Auth (Verified) Notes: (Chest 2 Views Frontal and Lat) Reason For Exam: Chest Pain;Other: RESULT: Chest 2 Views Frontal and Lat Chest 2 Views Frontal and Lat Hx of Present Illness: pt c o left lower calf increased swelling and pain, states had varicose surgery on December 01, no redness warmth noted to site, hx dm states has not taken medications, denies fever chills, no mechanical injury. Pt denies sob. Admits to chest tightness. Pt; Reason: Other:; Chest Pain; Clinical Question(s): Other: COMPARISON: None. FINDINGS: LINES AND TUBES: None. LUNGS AND PLEURA: Mild vascular congestion. No edema. No pleural effusion. No pneumothorax. HEART, MEDIASTINUM AND JUANITO: Heart is normal in size. Normal upper mediastinal and hilar contour. BONES AND SOFT TISSUES: No acute abnormality. IMPRESSION: Prominent central vascular markings without edema or effusions. WSN: [id number] Ordering Physician: Jami Edwards Dictated By: Luther Barrett MD Dictated Date/Time: 12/22/21 9:14 pm Reviewed By: Luther Barrett MD Signed By: Luther Barrett MD Signed Date/Time: 12/22/21 9:14 pm Transcribed By: BEBO Transcribed Date/Time: 12/22/21 9:14 pm Vital Signs Most recent to oldest [Reference Range]: 1 2 3 Oxygen Saturation [94-100 %] 97 % (12/22/21 10:51 PM) 98 % (12/22/21 8:15 PM) 99 % (12/22/21 6:58 PM) Pulse Rate [55-90 bpm] 68 bpm (12/22/21 10:51 PM) 79 bpm (12/22/21 8:15 PM) 80 bpm (12/22/21 6:58 PM) Blood Pressure [90-138/55-84 mm Hg] 121/68mm Hg (12/22/21 10:51 PM) 121/81mm Hg (12/22/21 8:15 PM) 125/80mm Hg (12/22/21 6:58 PM) Respiratory Rate [16-30 br/min] 16 br/min (12/22/21 6:58 PM) Temperature [96.8-100.4 DegF] 99.3 DegF (12/22/21 8:15 PM) 98.5 DegF (12/22/21 6:58 PM) Mode of Delivery (Oxygen) Room air (12/22/21 10:51 PM) Room air (12/22/21 6:58 PM) Blood pressure sites Arm, right (12/22/21 10:51 PM) Arm, right (12/22/21 8:15 PM) Arm, right (12/22/21 6:58 PM) Temperature Route Oral (12/22/21 8:15 PM) Oral (12/22/21 6:58 PM) Social History Social History Type Response Smoking Status Current every day emilie robins entered on: 08/01/15 Sex
--- OUTSIDE RECORDS SUMMARY | 2022-09-05 17:20 | XMS_ITS | Continuity of Care Document ---
Author Name Unknown Organization [facility] Address [address] [place] [address] [address] [place] [address]- Care Team Providers Care Electronic Systems Security Assessment Name Role Phone Jess MARTINEZ, Nathalie Zurita Primary Care Physician Encounter [facility] [place] Date(s): 11/07/20 - 12/12/20 [facility] [address] [place], [place] [address] Attending Physician: Johny Murphy MD Referring Physician: Tono Melendrez Allergies, Adverse Reactions, Alerts Substance Reaction Severity [...]
--- OUTSIDE RECORDS SUMMARY | 2022-09-05 17:20 | XMS_ITS | Continuity of Care Document ---
Author Name Unknown Organization [facility] Address [address] [place] [address]- Care Team Providers Care Snaker Tractor Driver Name Role Phone Michael Ibrahim MD Primary Care Physician [phone] [place] [facility] [id number] Date(s): 10/26/21 - 12/05/21 [facility] [address] [place] [address]- Attending Physician: Sparkle MARTINEZ, Surinder Sloan Admitting [...] 12/01/21 12:32:00 EDT, Route to Pharmacy Electronically, [facility]#[id number], Partial fill upon patient request if the [...]
--- OUTSIDE RECORDS SUMMARY | 2022-09-05 17:20 | XMS_ITS | Continuity of Care Document ---
Author Name Unknown Organization [facility] Address [address] [place] [address]- Care Team Providers Care Auto Adjudication Specialist Name Role Phone Simon MONTANA, Ericka Mac Primary Care Physician ( [phone] [place] [facility] [place](s): 09/23/21 - 09/30/21 [facility] [address] [place] [id number] Attending Physician: Bennie Bills MD Admitting Physician: Bennie Bills MD Referring Physician: Simon MONTANA, Ericka Mac Allergies, [...] recent to oldest [Reference Range]: 1 Height 161.5 cm (09/23/21 4:15 PM) Oxygen Saturation [94-100 %] 98 % (09/23/21 4:15 PM) Pulse Rate [55-90 bpm] 101 bpm *H* (09/23/21 4:15 PM) Blood Pressure [90-138/55-84 mm Hg] 124/ 80mm Hg (09/23/21 4:15 PM) Mode of Delivery (Oxygen) Room air (09/23/21 4:15 PM) Blood pressure sites Arm, right (09/23/21 4:15 PM) Social History Social History Type Response Smoking Status Current every day emilie robins entered on: 08/01/15 Sex
--- OUTSIDE RECORDS SUMMARY | 2022-09-05 17:20 | XMS_ITS | Continuity of Care Document ---
Author Name Unknown Organization [facility] ter Address [address] [place] [address]- Care Team Providers Care Talk Show Host Name Role Phone Michael Ibrahim MD Primary [id number] - 12/01/[address] [address] Discharge Disposition: A-D/C Home Attending Physician: Surinder Villagran MD Admitting Physician: Surinder Villagran MD Referring Physician: Surinder Villagran MD Allergies, Adverse Reactions, [...] 12/01/21 12:32:00 EDT, Route to Pharmacy Electronically, [id number], Partial fill upon patient request if the [...] 5 mg, 1, tablet, By Mouth, Every 6 hours, PRN, for 3 days, # 12 tablet, Refills 0, Tot. Refills 0, Acute 12/04/21 12:32:00 EDT, as needed for pain, 12/01/21 12:32:00 EDT, Route to Pharmacy Electronically, [facility] #[id number], Partial fill upon... Start Date: 12/01/21 Stop Date: 12/04/21 Status: Ordered Problem List Condition Effective Dates Status Health Status Inform ant Anxiety depression(Confirmed) Active Obesity(Confirmed) Active Seroma(Confirmed) Active Vital Signs Most recent to oldest [Reference Range]: 1 2 3 Height 162 cm (12/01/21 6:53 AM) 162 cm (11/27/21 4:08 PM) Oxygen Saturation [94-100 %] 99 % (12/01/21 1:00 PM) 100 % (12/01/21 12:00 PM) 100 % (12/01/21 11:45 AM) Pulse Rate [55-90 bpm] 78 bpm (12/01/21 6:53 AM) Blood Pressure [90-138/55-84 mm Hg] 119/67mm Hg (12/01/21 12:00 PM) 125/73mm Hg (12/01/21 11:45 AM) 136/75mm Hg (12/01/21 11:30 AM) Respiratory Rate [16-30 br/min] 20 br/min (12/01/21 12:00 PM) 22 br/min (12/01/21 11:45 AM) 21 br/min (12/01/21 11:30 AM) Temperature [96.8-100.4 DegF] 98.0 DegF (12/01/21 12:00 PM) 97.6 DegF (12/01/21 10:15 AM) 97.6 DegF (12/01/21 6:53 AM) Liters per Minute 6 L/min (12/01/21 10:15 AM) Mode of Delivery (Oxygen) Room air (12/01/21 1:00 PM) Room air (12/01/21 12:00 PM) Room air (12/01/21 10:45 AM) Blood pressure sites Arm, right (12/01/21 10:45 AM) Arm, right (12/01/21 10:30 AM) Arm, right (12/01/21 10:15 AM) Temperature Route Temporal (12/01/21 12:00 PM) Temporal (12/01/21 10:15 AM) Temporal (12/01/21 6:53 AM) Dry Weight 80.2 kg (12/01/21 6:53 AM) Social History Social History Type Response Smoking Status Current every day emilie robins entered on: 08/01/15 Sex
--- OUTSIDE RECORDS SUMMARY | 2022-09-05 17:20 | XMS_ITS | Continuity of Care Document ---
Author Name Unknown Organization [facility] Address [address] [place] [address]- Care Team Providers Care Deputy Building Guard Name Role Phone Patrice MARTINEZ, Michael Zurita Primary Care Physician Encounter [facility] [place] [id number] Date(s): 08/28/21 - 11/20/21 [facility] [address] [place] [address]- Attending Physician: Bakari Chacko MD Admitting Physician: Bakari Chacko MD Referring Physician: Simon MONTANA, Ericka Mac [...]
--- OUTSIDE RECORDS SUMMARY | 2022-09-05 17:20 | XMS_ITS | Continuity of Care Document ---
Author Name Unknown Organization [facility] Address [address] [place] [address] [address] [place] [address]- Care Team Providers Care Broom Stitcher Name Role Phone Patrice MARTINEZ, Michael Zurita Primary Care Physician [place] [facility] [place]/22 - 05/22/[address] [place] [address]- Attending Physician: Stephanie Knott Admitting Physician: Stephanie [...] 04/22/22 15:41:00 EST, Route to Pharmacy Electronically, [facility] #[id number], Partial fill upon patient request if the [...] Primary Care Nurse Name: Saba Pool Position: [facility] Outreach Member Role: Lifetime Consulting Physician Name: Cecilia Damon RN Position: S RN Member Role: Primary Care Nurse Name: Jimena Sanchez RN Position: S RN Member Role: Primary Care Nurse Name: Jeannette Ribera RN Position: [facility] RN Member Role: Primary Care Nurse Name: Michael Ibrahim MD Position: [facility] Outreach Member Role: PCP Address: Address: [address] [place] [address]- Care Team Related Persons Name: CHAPO FLOWER Address: [place] [address] Name: MARISELA HURLEY Address: [place] [address]
--- OUTSIDE RECORDS SUMMARY | 2022-09-05 17:20 | XMS_ITS | Continuity of Care Document ---
Author Name Unknown Organization [facility] Address [address] [place] [address] ve [address] [place] [address]- Care Team Providers Care Senior Mechanical Design Engineer Name Role Phone Patrice MARTINEZ, Michael Zurita Primary Care Physician [place] [facility] [place] - 04/29/22 [facility] [address] [place] [address]- Attending Physician: Johanna MARTINEZ, Cristobal Allergies, Adverse Reactions, Alerts Substance Reaction Severity [...] 04/22/22 15:41:00 EST, Route to Pharmacy Electronically, [facility] #[id number], Partial fill upon patient request if the [...] oldest [Reference Range]: 1 Height 162 cm (04/22/22 3:10 PM) Pulse Rate [55-90 bpm] 90 bpm (04/22/22 3:10 PM) Blood Pressure [90-138/55-84 mm Hg] 133/ 84mm Hg (04/22/22 3:10 PM) Temperature [96.8-100.4 DegF] 97.0 DegF (04/22/22 3:10 PM) Blood pressure sites Arm, right (04/22/22 3:10 PM) Temperature Route Temporal (04/22/22 3:10 PM) Social History Social History Type Response Smoking Status Current every day emilie robins entered on: 08/01/15 Sex Patient Care team information Care Team Personnel Name: Jodee Staton RN Position: [facility] RN Member Role: Primary Care Nurse Name: Saba Pool Position: S Outreach Member Role: Lifetime Consulting Physician Name: Cecilia Damon RN Position: S RN Member Role: Primary Care Nurse Name: Jimena Sanchez RN Position: S RN Member Role: Primary Care Nurse Name: Jeannette Ribera RN Position: S RN Member Role: Primary Care Nurse Name: Michael Ibrahim MD Position: [facility] Outreach Member Role: PCP Address: Address: [address] [place] [address]- Care Team Related Persons Name: CHAPO FLOWER Address: [place] [address] Name: MARISELA HURLEY Address: [place] [address]
--- OUTSIDE RECORDS SUMMARY | 2022-09-05 17:20 | XMS_ITS | Continuity of Care Document ---
Author Name Unknown Organization [facility] Address [address] [place] [address]- Care Team Providers Care Pipe Fitter Ammonia Name Role Phone Patrice MARTINEZ, Michael Zurita Primary Care Physician [place] [facility] [place]s): 10/07/21 - 10/14/21 [facility] [address] [place] [address]- Attending Physician: Surinder Villagran MD Admitting Physician: Sparkle MARTINEZ, Surinder Sloan Allergies, Adverse Reactions, Alerts Substance Reaction Severity [...]
[2022-09-05 17:23] LABS: Basophils Absolute Auto 0.1 X10*3/uL (0.0-0.2); Eosinophils Absolute Auto 0.1 X10*3/uL (0.0-0.4); Eosinophils Percent Auto 1.3 % (0-4); Hematocrit 41.8 % (37.0-47.0); Hemoglobin 14.2 g/dl (12.0-16.0); Imm Gran Pct Auto 1.1 % (0.0-0.4); Lymphocytes Absolute Auto 2.7 X10*3/uL (1.2-4.9); Lymphocytes Percent Auto 29.8 % (20-40); Mean Corpuscular Volume 88.4 fL (80.0-98.0); Mean Platelet Volume 10.5 fL (9.4-12.3); Monocytes Absolute Auto 0.8 X10*3/uL (0.1-1.2); Monocytes Percent Auto 8.7 % (2-11); Neutrophils Absolute Auto 5.2 x10*3/uL (2.0-8.3); Neutrophils Percent Auto 58.1 % (45-73); Platelet Count 293 X10*3/uL (160-400); Red Blood Count 4.73 X10*6/uL (4.20-5.50); Red Cell Distribution Width 12.7 % (11.0-16.0); White Blood Count 8.9 X10*3/uL (4.8-10.8)
[2022-09-05 17:28] LABS: Prothrombin Time 11.5 SEC (10.0-13.1)
[2022-09-05 17:30] LABS: Lactic Acid 1.3 mmol/L (0.5-2.0)
[2022-09-05 17:31] LABS: Partial Thromboplastin Time 29.6 SEC (26.0-36.4)
[2022-09-05 18:06] LABS: Alanine Aminotransferase 9 U/L (0-31); Albumin Level 4.8 g/dL (3.5-5.0); Alkaline Phosphatase 50 U/L (39-117); Anion Gap 15 (12-20); Aspartate Amino Transferase 10 U/L (5-31); Bilirubin Total 0.6 mg/dL (0.0-1.0); Blood Urea Nitrogen 16 mg/dL (9-16); Calcium 9.9 mg/dL (8.4-10.2); Carbon Dioxide 24 mmol/L (22-29); Chloride 101 mmol/L (96-108); Creatinine Clr Calc Pharmacy 94.4; Estimated Glomerular Filt Rate > 60; Glucose Random 188 mg/dL (60-115); HCG Quantitative < 2 mIU/mL; Potassium 4.1 mmol/L (3.3-5.1); Sodium 136 mmol/L (135-145); Total Protein 8.2 g/dL (6.5-8.0)
--- NOTE | 2022-09-05 18:37 | PC.NURSE ---
Patient with known hernia scheduled for surgery in September, concern for incarceration due to abd pain. ABD soft distended no distress noted. IV access obtained labs collected and sent
[2022-09-05] MEDS: iohexoL 350 MG/ML 100 ML INFUS..BTL IV (18:57)
[2022-09-05] MEDS: Morphine Sulfate 4 MG/ML CARTRIDGE IVPUSH (19:49)
[2022-09-05] MEDS: ondansetron HCL 4 MG/2 ML VIAL IVPUSH (19:49)
[2022-09-05] MEDS: Ketorolac Tromethamine 15 MG/ML VIAL 30 MG IM (21:23)
== END 2022-09-05 21:36 | disposition home or self-care (01) ==
PROVIDERS: Physician Assistant; Emergency Provider Internal Medicine
DX: K42.9 Umbilical hernia without obstruction or gangrene (principal); R10.32 Left lower quadrant pain; R22.9 Localized swelling, mass and lump, unspecified; E27.9 Disorder of adrenal gland, unspecified; Z79.899 Other long term (current) drug therapy
CPT/HCPCS: 36415; 74177; 80053; 83605; 84702; 85025; 85610; 85730; 96372; 96374; 96375; 99284; J1885; J2270; J2405; Q9967

== ENCOUNTER 2025-05-29 21:32 | Inpatient (IN) | payer MEDICAID, SELFPAY ==
--- NOTE | ~2025-05-29 | CT_ITS ---
CLINICAL HISTORY: sbo eval CT abdomen and pelvis with contrast Comparison: CT of the abdomen and pelvis from 09/05/2022 Findings: New mild bibasilar atelectasis/pneumonitis superimposed on emphysematous changes. Mild cardiomegaly noted in the [id number]. Fat deposition noted in the liver. Gallbladder is mildly distended. No significant change in 2 cm nodules of the adrenal glands. Spleen remains nonenlarged. Pancreas partly obscured and otherwise unremarkable. Bilateral nonobstructing nephrolithiasis are mildly increased in size and number with the largest measuring up to 3 mm. No hydronephrosis. Small bowel is mildly dilated of the mid-lower anastomosis concerning for small bowel obstruction. Additional small bowel dilatation measures 3 cm in the lower abdomen. Closed loop morphology not excluded given transition point in the right hemiabdomen. Severe stool burden present, including the cecum. Wall thickening of the large intestine is nonspecific including hepatic flexure. The imaged appendix is within normal limits (37 of series 7). Mild free fluid in the abdomen pelvis nonspecific and may be reactive. Uterus is anteverted and retroflexed. Fluid in the endometrium is nonspecific by CT. Cystic structure of the left ovary measures 2.5 cm. No adnexal soft tissue mass by CT. Left adnexa measures at the upper limits of normal. Mild wall thickening of the urinary bladder is nonspecific. Subcutaneous edema is noted. Previous ventral mesh procedure changes noted. Facet arthropathy is multifocal, including lower lumbar spine. Mild degenerative changes of the imaged hips, left worse than right. Enthesopathy of the imaged greater trochanters. IMPRESSION: Small bowel dilatation, concerning for small bowel obstruction. This document has been electronically signed by: Efrain Arias MD on 05/30/2025 02:19:08
[2025-05-29 21:36] VITALS: BP 132/83; PULSE 96; RESP 16; TEMP 36.9; O2SAT 98; BMI 28.3
[2025-05-29 21:50] LABS: MANUAL DIFF FLAG NO
[2025-05-29 21:53] LABS: Hematocrit 37.8 % (37.0-47.0); Hemoglobin 13.0 g/dl (12.0-16.0); Imm Gran Abs Auto 0.17 X10*3/uL (0.00-0.03); Imm Gran Pct Auto 1.6 % (0.0-0.4); Lymphocytes Absolute Auto 2.8 X10*3/uL (1.2-4.9); Mean Corpuscular HGB Conc 34.4 g/dl (31.0-35.0); Mean Corpuscular Hemoglobin 30.8 pg (27.0-33.0); Mean Corpuscular Volume 89.6 fL (80.0-98.0); NRBC Abs Auto 0.000 X10*3/uL (0.0-0.012); NRBC Pct Auto 0.0 /100WBC (0.0-0.2); Platelet Count 265 X10*3/uL (160-400); Red Blood Count 4.22 X10*6/uL (4.20-5.50); White Blood Count 10.9 X10*3/uL (4.8-10.8)
[2025-05-29 22:03] LABS: Alanine Aminotransferase 14 U/L (0-31); Albumin Level 4.6 g/dL (3.5-5.0); Alkaline Phosphatase 48 U/L (39-117); Anion Gap 15 (12-20); Aspartate Amino Transferase 17 U/L (5-31); Blood Urea Nitrogen 19 mg/dL (9-16); Calcium 9.5 mg/dL (8.4-10.2); Carbon Dioxide 24 mmol/L (22-29); Chloride 101 mmol/L (96-108); Creatinine Clr Calc Pharmacy 88.3; Estimated Glomerular Filt Rate > 60; Potassium 3.5 mmol/L (3.3-5.1); Sodium 136 mmol/L (135-145); Total Protein 7.7 g/dL (6.5-8.0)
[2025-05-29 23:12] LABS: Appearance Urine Clear; Glucose Urine UA >=1000 mg/dL (Negative); PH 6.5 (5.0-9.0); Specific Gravity - Urine 1.020 (1.005-1.025); UMIC TRIGGER UACC YES
[2025-05-29 23:53] VITALS: BP 120/74; PULSE 83; RESP 16; TEMP 36.8; O2SAT 97
[2025-05-30] VITALS (10 sets, daily range): BP systolic 94–121; BP diastolic 51–78; PULSE 55–81; RESP 14–19; TEMP 36.2–36.9; O2SAT 96–98; BMI 26.9
--- NOTE | 2025-05-30 | ED.GENADULT ---
[facility] - General Adult General Chief complaint: Abdominal Pain Stated complaint: GI, stomach swelling Time Seen by Provider: 05/29/25 23:50 Source: patient Mode of arrival: ambulatory Limitations: no limitations History of Present Illness ED Provider: Dr. Flores [facility] narrative: 49-year-old female history of small-bowel obstruction requiring surgery, hernia presenting to the hospital for diffuse abdominal tenderness and distention. Patient is noted that this has been increasingly distended for past couple of days now. She has been endorsing some nausea no emesis. She did pass some gas yesterday and stool yesterday. She is worried that she may have another small bowel obstruction. Therefore she presents to the ER for evaluation. Related Data Home Medications ?Medication ?Instructions ?Recorded ?Confirmed atorvastatin 10 mg tablet 10 mg PO BEDTIME 05/30/25 05/30/25 sertraline 50 mg tablet 25 mg PO BEDTIME 05/30/25 05/30/25 sitagliptin phosphate 50 1 tab PO DAILY@199905/30/25 05/30/25 mg-metformin 1,000 mg tablet (Janumet) topiramate 50 mg tablet 50 mg PO BEDTIME 05/30/25 05/30/25 Allergies Allergy/AdvReac Type Severity Reaction Status Date / Time Penicillins (PENICILLINS) Allergy Unknown HIVES Verified 05/30/25 01:19 tramadol (TRAMADOL) Allergy Unknown VOMITING Verified 05/30/25 01:19 ibuprofen (IBUPROFEN) AdvReac Unknown NAUSEA & Verified 05/30/25 01:19 VOMITING Review of Systems Review of Systems: Pertinent review of systems as mentioned in HPI. All other system otherwise negative. FORMERLY [facility], [facility] Past Medical History [facility], [facility] Narrative: Medical history as mentioned in HPI Medical History (Updated 05/30/25 @ 09:04 by Sabina Goff RN) Bowel obstruction Hypercholesteremia Migraines Diabetes mellitus, type 2 Surgical History (Updated 05/30/25 @ 09:05 by Sabina Goff RN) History of bowel resection Social History Social History Household Members: Children Housing: Apartment Do you presently have visiting nurse or other home services: No Alcohol intake: never Patient Tobacco Use Status: Current everyday Tobacco user Tobacco use type: Cigarette Cigarettes Per Day: 10 Smoked in Last 30 Days: Yes Patient Interested in Nicotine Replacement: No Patient Given Instructions on How to Stop Smoking: No Second Hand Smoke Exposure: No Use of substances other than those prescribed or required for medical reasons: No Have you been hit, kicked, punched, or otherwise hurt by someone within the past year? If so, by whom?: No Do you feel safe in your current relationship?: Yes Is there a partner from a previous relationship who is making you feel unsafe now?: No Are you made to feel afraid or neglected: No Advance Directives: No Advance Directives Information Provided: Yes Do you have a plan to hurt others: No Plan Recently lost weight without trying: No Eating poorly because of decreased appetite: No Nutrition Risks: No Nutritional Risk Patient : No : No Poor oral hygiene: No service: No Physical Exam ED Exam Exam: General: Pleasant, no distress, interacting appropriately Head: Normacephalic, atraumatic ENT: oral mucosa moist, neck supple, no tracheal deviation Cardiovascular: regular rate, regular rhythm, no murmurs, rubbing, gallops Respiratory: CTAB, no wheeze, rales, rhonchi Gastrointestinal: Soft, abdominal distention appreciated on exam diffuse tenderness Skin: Warm and dry Psychiatric: Appropriate mood and thoughts Vital Signs: Vital Signs - 24 hr 05/29/25 21:36 05/29/25 23:53 05/30/25 01:23 Temperature 98.4 F 98.2 F Pulse Rate 96 83 81 Respiratory Rate 16 16 18 Blood Pressure 132/83 120/74 121/78 Pulse Oximetry 98 97 98 Oxygen Delivery Method Room Air Room Air Room Air BMI result Body Mass Index 28.3 Course Course Course Narrative: 2:30 AM 05/30/2025 (Nathaniel HERNANDEZ): The patient was signed out to this provider at shift change. In summary the patient is a 49-year-old female with a history of previous SBO requiring surgical intervention presenting to the ED for evaluation of generalized abdominal pain with increasing abdominal distention and nausea with the past few hours. Patient reports last bowel movement was yesterday, no significant passage of stool or flatus today. The patient was sent for a CT abdomen and pelvis which was pending at time of signout. At this time the patient's CT has resulted and shows dilated small bowel concerning for a SBO. Her laboratory evaluation shows mild leukocytosis of 10.9, otherwise no acute findings. Urinalysis negative for infection. Patient's case has been sent to the surgical service on [facility] requesting consultation and possible admission to the surgical service, we will await response. 2:40 AM 05/30/2025 (Nathaniel HERNANDEZ): Patient was accepted for admission to the surgical service. Medications Administered Generic Name Dose Route Start Last Admin Trade Name Freq PRN Reason Stop Dose Admin Lactated Ringer's 1,000 mls @ 100 mls/hr 05/30/25 02:45 05/30/25 12:42 Lr IVCONT 100 mls/hr .Q10H DEREK Administration Insulin Human Lispro 0 unit 05/30/25 12:00 05/30/25 12:10 Insulin Lispro 100 Unit/Ml 3 Ml Vial SUBCUT Not Given Q6H DEREK Protocol Morphine Sulfate 3 mg 05/30/25 09:42 05/30/25 14:18 Morphine Sulfate 4 Mg/Ml Cartridge IVPUSH 3 mg Q3H PRN Administration Pain, Severe (Pain Scale 7-10) Protocol Sodium Chloride 3 ml 05/30/25 08:00 05/30/25 07:34 0.9 % Sodium Chloride Flush 3 Ml Syringe IVFLUSH Not Given QSHIFT DEREK Discontinued Medications Generic Name Dose Route Start Last Admin Trade Name Freq PRN Reason Stop Dose Admin Hydromorphone HCl 0.5 mg 05/30/25 02:38 05/30/25 07:31 Hydromorphone Hcl 1 Mg/Ml Syringe IVPUSH 0.5 mg Q4H PRN Administration Pain, Severe (Pain Scale 7-10) Protocol Sodium Chloride 1,000 mls @ 999 mls/hr 05/30/25 01:15 05/30/25 02:22 Ns IV 05/30/25 02:15 Infused .Q1H1M DEREK Infusion Insulin Human Lispro 0 unit 05/30/25 11:15 05/30/25 11:29 Insulin Lispro 100 Unit/Ml 3 Ml Vial SUBCUT 05/31/25 11:15 Not Given Q6H [facility] Protocol Iohexol 85 ml 05/30/25 01:35 05/30/25 01:35 Iohexol 350 Mg/Ml 100 Ml Infus..Btl IV 05/30/25 01:36 85 ml ONCE ONE Administration Morphine Sulfate 4 mg 05/30/25 01:09 05/30/25 01:21 Morphine Sulfate 4 Mg/Ml Cartridge IVPUSH 05/30/25 01:10 4 mg ONCE ONE Administration Protocol Ondansetron HCl 4 mg 05/30/25 01:09 05/30/25 01:21 Ondansetron Hcl 4 Mg/2 Ml Vial IVPUSH 05/30/25 01:10 4 mg ONCE ONE Administration Medical Decision Making Medical Decision Making [facility] Narrative: 49-year-old female history of SBO hernia repair presented hospital today for generalized abdominal pain and nausea. Patient is concerned that she may have on a small bowel obstruction. CT imaging will be performed IV morphine will be given for pain control, IV Zofran be given for nausea IV fluid will be initiated for the patient abdominal lab work will be obtained for the patient as well. Patient will be signed out to oncoming provider pending CT imaging results at this time. Differential Diagnosis Differential Diagnoses: The differential diagnosis associated with the presentation includes Colitis, gastroenteritis, SBO Lab Data [facility] Lab Attestation statement: I reviewed the patient's lab results. 05/30/25 04:29 05/30/25 04:29 Labs: Lab Results 05/29/25 05/29/25 Range/Units 21:45 23:04 WBC 10.9 H (4.8-10.8) X10*3/uL RBC 4.22 (4.20-5.50) X10*6/uL Hgb 13.0 (12.0-16.0) g/dl Hct 37.8 (37.0-47.0) % MCV 89.6 (80.0-98.0) fL MCH 30.8 (27.0-33.0) pg MCHC 34.4 (31.0-35.0) g/dl RDW 12.4 (11.0-16.0) % Plt Count 265 (160-400) X10*3/uL MPV 10.4 (9.4-12.3) fL Immature Gran % (Auto) 1.6 H (0.0-0.4) % Neut % (Auto) 63.9 (45-73) % Lymph % (Auto) 25.5 (20-40) % [place] % (Auto) 6.8 (2-11) % Eos % (Auto) 1.4 (0-4) % Baso % (Auto) 0.8 (0-2) % Lymph # (Auto) 2.8 (1.2-4.9) X10*3/uL [place] # (Auto) 0.7 (0.1-1.2) X10*3/uL Eos # (Auto) 0.2 (0.0-0.4) X10*3/uL Baso # (Auto) 0.1 (0.0-0.2) X10*3/uL Abs Immat Gran (auto) 0.17 H (0.00-0.03) X10*3/uL Absolute Neuts (auto) 7.0 (2.0-8.3) x10*3/uL Absolute Nucleated RBC 0.000 (0.0-0.012) X10*3/uL Nucleated RBC % (auto) 0.0 (0.0-0.2) /100WBC Sodium 136 (135-145) mmol/L Potassium 3.5 (3.3-5.1) mmol/L Chloride 101 (96-108) mmol/L Carbon Dioxide 24 (22-29) mmol/L Anion Gap 15 (12-20) BUN 19 H (9-16) mg/dL Creatinine 0.78 (0.5-1.4) mg/dL Estim Creat Clear Calc 88.3 Estimated GFR > 60 Random Glucose 298 H (60-115) mg/dL Calcium 9.5 (8.4-10.2) mg/dL Total Bilirubin 0.3 (0.0-1.0) mg/dL AST 17 (5-31) U/L ALT 14 (0-31) U/L Alkaline Phosphatase 48 (39-117) U/L Total Protein 7.7 (6.5-8.0) g/dL Albumin 4.6 (3.5-5.0) g/dL Urine Color Yellow Urine Appearance Clear Urine pH 6.5 (5.0-9.0) Ur Specific [place] 1.020 (1.005-1.025) Urine Protein Negative (Neg-Trace) mg/dL Urine Glucose (UA) >=1000 H (Negative) mg/dL Urine Ketones Negative (Negative) mg/dL Urine Blood Negative (Negative) Urine Nitrite Negative (Negative) Ur Leukocyte Esterase Negative (Negative) Urine RBC 0-2 (0-2) /HPF Urine WBC 0-5 (0-5) /HPF Ur Squamous Epith Cells 0-2 (0-2) /HPF Urine Bacteria None Seen (None Seen) Hyaline Casts 0-2 (0-2) /LPF Urine Test NEGATIVE (NEGATIVE) Critical Care Time Critical Care Time Critical Care Time: Yes Total Critical Care Time: 40 Attestation: Time is exclusive of separately billable procedures. Time includes: direct patient care, patient reassessment, coordination of patient care, interpretation of data (laboratory data, pulse oximetry, arterial blood gases and chest xrays), review of patient's medical records, medical consultation and documentation of patient care. Procedures excluded from critical care time: central intravenous line placement and electrocardiography. Discharge Plan Discharge Clinical Impression: Abdominal distension, Small bowel obstruction Patient Disposition: Admitted As Inpatient Interventions: Admission Worksheet (ED) Last Done: 05/30/25 07:44 Discharge Date/Time: 05/30/25 08:45
--- OUTSIDE RECORDS SUMMARY | 2025-05-30 00:36 | XMS_ITS | Clinical Summary ---
Author Organization [facility] Address [address] [place] [address] Care Team Providers Care Senior Engineering Manager Name Role Phone Unavailable Primary Care Provider Unavailabl e Encounters Date Type Department Care Team Description 04/29/2025 [facility] [address] [id number] Aria Chaudhry 04/26/2025 [facility] [address] [phone] Ranjana Roa from Last 3 Months Social History Tobacco Use Types Packs/Day Years Used Date Smoking Tobacco: Never Assessed Comments Unknown Sex and Gender Information Value Date Recorded Sex Assigned at Not on file Legal Sex Female 9:18 PM EDT Gender Identity Not on file Sexual Orientation Not on file Plan of Treatment Health Maintenance Due Date Last Done Comments CT Colonography 1977 Colonoscopy 1977 Colorectal Cancer Screening 1977 Depression Screening 1977 FIT DNA/Cologuard 1977 FIT 1977 FOBT 1977 Lipid Panel 1977 SDOH Screening 1977 Sigmoidoscopy 1977 Disability Screening 1977 Alcohol/Substance Use Screening 1989 Tobacco Screening 1989 Family Planning (PISQ) 1992 Hepatitis C Screening 12/07/1995 Hepatitis A Vaccines (1 of 2 - Risk 2-dose series) 1996 Pap Smear 1998 Cervical Cancer Screening 12/07/2007 HPV/Cotest 12/07/2007 Mammogram 2017 Hepatitis B Vaccines (2 of 2 - CpG 2-dose series) 02/01/2024 01/04/2024 COVID-19 Vaccine (1 - 2024-2 6 season) 2025 Influenza Vaccine (#1) 2025 Zoster Vaccines (1 of 2) 12/07/2027 DTaP/Tdap/Td Vaccines (3 - T d or Tdap) 01/03/2034 01/04/2024, 06/13/2007 RSV Patients and Patients Aged 60 years or older (1 - 1-dose 75+ series) 2052 HIV Screening Completed 02/22/2020 HIB Vaccines Aged Out No longer eligi ble based on patient's age to complete this topic HPV Vaccines Aged Out No longer eligi ble based on patient's age to complete this topic IPV Vaccines Aged Out No longer eligi ble based on patient's age to complete this topic Meningococcal B Vaccine Aged Out No l onger eligible based on patient's age to complete this topic Meningococcal Vaccine Aged Out No anurag alejandro eligible based on patient's age to complete this topic Pneumococcal Vaccine: Pediatrics (0 to 5 Years) and At-Risk Patients (6 to 49) Years Aged Out No longer eligible b ased on patient's age to complete this topic RSV under 20 months Aged Out No longe r eligible based on patient's age to complete this topic Rotavirus Vaccines Aged Out No longer eligible based on patient's age to complete this topic
--- OUTSIDE RECORDS SUMMARY | 2025-05-30 00:37 | XMS_ITS | Clinical Summary ---
Author Organization [facility] Address [address] [place] [address] Phone Care Team Providers Care National Account Director Name Role Phone Physician, No Pcp Primary Care Provider Unavaila ble Allergies Active Allergy Reactions Criticality Noted Date Comments Aspirin Nausea Only 04/06/2022 Other Reaction(s): Very Nauseaus Other reaction(s): Very Nauseaus Penicillins Hives,Swelling High 01/13/2016 Other Reaction(s): Hives, Swelling of throat Medications acetaminophen (TYLENOL) 500 mg tablet Take 1 tablet (500 mg total) by mouth every 6 (six) hours if needed for mild pain for up to 12 doses. 12 tablet 5 Active ibuprofen (ADVIL,MOTRIN) 200 mg tablet Take 1 tablet (200 mg total) by mouth every 6 (six) hours if needed for mild pain for up to 36 doses. 36 tablet 5 Active polyethylene glycol (MIRALAX) 17 gram packet Take 17 g by mouth 2 (two) times a day if needed for constipation for up to 6 doses. 51 g 5 Active aluminum-magnes ium hydroxide-simet hicone (MAALOX) 200-200-20 mg/5 mL suspension Take 15 mL by mouth 4 (four) times a day (before meals and nightly). 354 mL 5 Active Active Problems No known active problems Encounters Date Type Department Care Team Description 04/25/2025 1:47 AM EST - 04/25/2025 1:48 AM EST Emergency [facility] Emergency [address] [place] [address] Generalized abdominal pain (Primary Dx) Discharge Disposition: Left Against Medical Advice 03/23/2025 3:08 AM EDT - 03/23/2025 7:31 AM EDT Emergency [facility] Emergency [address] [place] [phone] Zoe Godinez MD Acute periumbilical pain (Primary Dx); History of small bowel obstruction Discharge Disposition: Home or Self Care 03/03/2025 7:26 PM EDT - 03/03/2025 11:51 PM EDT Emergency [facility] Emergency [address] [place] [phone] Generalized abdominal pain (Primary Dx); Enteritis Discharge Disposition: Home or Self Care from Last 3 Months Surgical History Surgery Date Site/Laterality Comments HERNIA REPAIR Left PROCEDURE: HISTORICAL HERNIA REPAIR/ING TUBAL LIGATION 2008 PROCEDURE: HISTORICAL TUBAL LIGATION SECTION PROCEDURE: HISTORICAL DELIVERY; COMMENT: x 4: 1 fullterm Medical History Medical History Date Comments Bipolar disorder ([facility] V2 4, [facility] V28) 01/13/2016 DX:Bipolar disorder (HCC) Varicose veins of legs 01/13/2016 DX:Varico se veins of legs Depression DX:Depression; C OMMENT: [facility]- therapist in [place] Adrenal incidentaloma ([facility] V24) 02/09/2019 DX:Adrenal incidentaloma (HCC) Diabetes mellitus ([facility] V 24, [facility] V28) Small bowel obstruction ([facility] V24, [facility] V28) Umbilical hernia Family History Medical History Relation Name Comments Diabetes Father's side 1 Diabetes Mother's side 1 Relation Name Status Comments Daughter 1 Alive Daughter 2 Alive Father Alive ETOH and drug u se Father's side 1 Father's side 2 Mother Alive Bipolar, ETOH a nd drug use Mother's side 1 Mother's side 2 Social History Tobacco Use Types Packs/Day Years Used Date Smoking Tobacco: Every Day Smokeless Tobacco: Current Alcohol Use Standard Drinks/Week Comments No 0 (1 standard drink = 0.6 oz pur e alcohol) Comments Unknown Sex and Gender Information Value Date Recorded Sex Assigned at Not on file Legal Sex Female 3:32 PM EST Gender Identity Not on file Sexual Orientation Not on file Last Filed Vital Signs Vital Sign Reading Time Taken Comments Blood Pressure 118/73 04/25/2025 12:12 AM EST Pulse 75 04/25/2025 12:12 AM EST Temperature 36.2 C (97.2 F) 04/25/2025 12:12 AM EST Respiratory Rate 15 04/25/2025 12:12 AM EST Oxygen Saturation 98% 04/25/2025 12:12 AM EST Inhaled Oxygen Concentration - - Weight 74.8 kg (165 lb) 04/24/2025 3:18 PM EST Height 162.6 cm (5' 4 ) 04/24/2025 3:18 PM EST Body Mass Index 28.32 04/24/2025 3:18 PM EST Plan of Treatment Health Maintenance Due Date Last Done Comments Breast Cancer Screening 1977 Colorectal Cancer Screening: Colonoscopy 1977 Diabetes: Annual Foot Exam 12/07/1987 Diabetes: Annual Retina Eye Exam 12/07/1987 Hepatitis A Vaccines (1 of 2 - Risk 2-dose series) 1996 Pneumococcal Vaccine: Pediatrics (0 to 5 Years) and At-Risk Patients (6 to 49 Years) (1 of 2 - PCV) 1996 Cervical Cancer Screening: Pap Smear 1998 Social Influencers of Health Screening 05/12/2022 Hepatitis B Vaccines (2 of 2 - CpG 2-dose series) 02/01/2024 01/04/2024 Depression Screening 06/13/2024 COVID-19 Vaccine (1 - season) 2025 Influenza Vaccine (#1) 2025 Diabetes: Blood Sugar Control Test (HGBA1C) 06/13/2025 12/11/2024 Diabetes: Annual Urine Albumin-Creatinine Ratio (uACR) 01/29/2026 01/29/2025, 11/16/2023, 04/07/2022 Diabetes: Annual GFR (Glomerular Filtration Rate) 04/24/2026 04/24/2025, 03/23/2025, 03/03/2025, Additional history exists Cholesterol Screening (Lipid Panel) 01/29/2030 01/29/2025, 01/29/2025, 12/11/2024, Additional history exists DTaP,Tdap,and Td Vaccines (3 - Td or Tdap) 01/03/2034 01/04/2024, 06/13/2007 RSV Immunization Adult Patients (1 - 1-dose 75+ series) 2052 HIV Screening Completed 02/22/2020 Hepatitis C Screening Completed 02/22/2020, 020 HIB Vaccines Aged Out No longer eligi ble based on patient's age to complete this topic HPV Vaccines Aged Out No longer eligi ble based on patient's age to complete this topic IPV Vaccines Aged Out No longer eligi ble based on patient's age to complete this topic MMR Vaccines Aged Out No longer eligi ble based on patient's age to complete this topic Meningococcal ACWY Vaccine Aged Out N o longer eligible based on patient's age to complete this topic Meningococcal B Vaccine Aged Out No l onger eligible based on patient's age to complete this topic RSV Immunization Patients Under 20 months Aged Out No longer eligible based on patient's age to complete this topic Varicella Vaccines Aged Out No longer eligible based on patient's age to complete this topic Procedures Procedure Name Priority Date/Time Associated Diagnosis Comments CBC WITH AUTO DIFFERENTIAL STAT 04/24/2025 3:31 PM EST LACTATE, WITH REFLEX STAT 04/24/2025 3:31 PM EST LIPASE STAT 04/24/2025 3:31 PM EST COMPREHENSIVE METABOLIC PANEL STAT 04/24/2025 3:31 PM EST CBC AND DIFFERENTIAL STAT 04/24/2025 3:[address] ABDOMEN PELVIS W CONTRAST STAT 03/23/2025 5:52 AM EDT HCG, SERUM, QUALITATIVE STAT 03/23/2025 4:57 AM EDT LACTATE, WITH REFLEX STAT 03/23/2025 4:57 AM EDT RUBIN URINE CULTURE TUBE STAT 03/23/2025 4:20 AM EDT URINALYSIS WITH REFLEX MICROSCOPIC AND CULTURE STAT 03/23/2025 4:20 AM EDT URINALYSIS WITH REFLEX MICROSCOPIC AND CULTURE STAT 03/23/2025 4:20 AM EDT CULTURE URINE STAT 03/23/2025 4:20 AM EDT LIPASE STAT Add-on 03/23/2025 2:33 AM EDT CBC WITH AUTO DIFFERENTIAL STAT 03/23/2025 2:33 AM EDT COMPREHENSIVE METABOLIC PANEL STAT 03/23/2025 2:33 AM EDT CBC AND DIFFERENTIAL STAT 03/23/2025 2:[address] ABDOMEN PELVIS W CONTRAST STAT 03/03/2025 10:29 PM EDT US PELVIS TRANSVAGINAL NON OB STAT 03/03/2025 9:01 PM EDT POC , URINE DIAGNOSTIC STAT 03/03/2025 8:20 PM EDT HCG, SERUM, QUALITATIVE STAT Add-on 03/03/2025 8:15 PM EDT CBC WITH AUTO DIFFERENTIAL STAT 03/03/2025 8:15 PM EDT LIPASE STAT 03/03/2025 8:15 PM EDT COMPREHENSIVE METABOLIC PANEL STAT 03/03/2025 8:15 PM EDT CBC AND DIFFERENTIAL STAT 03/03/2025 8:15 PM EDT URINALYSIS WITH REFLEX MICROSCOPIC STAT 03/03/2025 8:07 PM EDT URINALYSIS WITH REFLEX MICROSCOPIC STAT 03/03/2025 8:07 PM EDT from Last 3 Months Results * Lactate, with reflex (04/24/2025 3:31 PM EST) Only the most recent of2 resultswithin the time period is included. [facility] LACTIC ACID 1.3 0.4 - 2.0 mmol/L LAB CHEMISTRY METHOD 04/24/2025 4:22 PM [facility] Blood Venous blood specimen / Unknown Venipuncture / Unknown 04/24/2025 3:31 PM EST 04/24/2025 3:48 PM EST Jeremy HERNANDEZ LAB BLOOD ORDERABLES Final Result [facility] [address] [place] [address], * (ABNORMAL) CBC auto differential (04/24/2025 3:31 PM EST) Only the most recent of3 resultswithin the time period is included. [facility] WBC 8.6 4.8 - 10.8 K/mcL LAB HEMETOLOGY METHOD 04/24/2025 3:59 PM [facility] RBC 4.40 3.80 - 4.80 M/mcL LAB HEMETOLOGY METHOD 04/24/2025 3:59 PM [facility] Hemoglobin 13.6 11.5 - 16.0 g/dL LAB HEMETOLOGY METHOD 04/24/2025 3:59 PM [facility] Hematocrit 39.7 35.0 - 47.0 % LAB HEMETOLOGY METHOD 04/24/2025 3:59 PM [facility] MCV 89.8 79.0 - 98.0 FL LAB HEMETOLOGY METHOD 04/24/2025 3:59 PM [facility] MCH 30.8 27.0 - 32.0 pcg LAB HEMETOLOGY METHOD 04/24/2025 3:59 PM [facility] MCHC 34.3 32.0 - 37.0 g/dL LAB HEMETOLOGY METHOD 04/24/2025 3:59 PM [facility] RDW 12.2 11.0 - 15.0 % LAB HEMETOLOGY METHOD 04/24/2025 3:59 PM [facility] Platelets 261 130 - 400 K/mcL LAB HEMETOLOGY METHOD 04/24/2025 3:59 PM [facility] MPV 10.4 7.0 - 11.0 FL LAB HEMETOLOGY METHOD 04/24/2025 3:59 PM [facility] NRBC 0.0 <1.0 % LAB HEMETOLOGY METHOD 04/24/2025 3:59 PM [facility] NRBC Absolute 0.00 <0.10 K/mcL LAB HEMETOLOGY METHOD 04/24/2025 3:59 PM [facility] Neutrophils Relative 55.5 % LAB HEMETOLOGY METHOD 04/24/2025 3:59 PM [facility] Lymphocytes Relative 30.2 % LAB HEMETOLOGY METHOD 04/24/2025 3:59 PM [facility] Monocytes Relative 9.2 % LAB HEMETOLOGY METHOD 04/24/2025 3:59 PM [facility] Eosinophils Relative 1.3 % LAB HEMETOLOGY METHOD 04/24/2025 3:59 PM [facility] Basophils Relative 1.3 % LAB HEMETOLOGY METHOD 04/24/2025 3:59 PM [facility] Immature Granulocytes Relative 2.5 % LAB HEMETOLOGY METHOD 04/24/2025 3:59 PM [facility] Neutrophils Absolute 4.79 1.50 - 7.00 K/mcL LAB HEMETOLOGY METHOD 04/24/2025 3:59 PM [facility] Lymphocytes Absolute 2.61 1.00 - 5.00 K/mcL LAB HEMETOLOGY METHOD 04/24/2025 3:59 PM EST [facility] Monocytes Absolute 0.79 0.20 - 1.00 K/mcL LAB HEMETOLOGY METHOD 04/24/2025 3:59 PM EST [facility] Eosinophils Absolute 0.11 0.00 - 0.50 K/[facility] LAB HEMETOLOGY METHOD 04/24/2025 3:59 PM EST [facility] Basophils Absolute 0.11 0.00 - 0.20 K/[facility] LAB HEMETOLOGY METHOD 04/24/2025 3:59 PM EST [facility] Immature Granulocytes Absolute 0.22(H) 0.00 - 0.03 K/[facility] LAB HEMETOLOGY METHOD 04/24/2025 3:59 PM EST [facility] Blood Venous blood specimen / Unknown Venipuncture / Unknown 04/24/2025 3:31 PM EST 04/24/2025 3:47 PM EST us Jeremy HERNANDEZ LAB BLOOD ORDERABLES Final Result Performing Organization Address City/[facility]/ZIP Co de Phone Number [facility] [address] [place] [address], [place] [phone] * Lipase (04/24/2025 3:31 PM EST) Only the most recent of3 resultswithin the time period is included. Lipase 26 13 - 75 unit/L LAB CHEMISTRY METHOD 04/24/2025 4:19 PM EST [facility] Blood Venous blood specimen / Unknown Venipuncture / Unknown 04/24/2025 3:31 PM EST 04/24/2025 3:47 PM EST us Jeremy HERNANDEZ LAB BLOOD ORDERABLES Final Result Performing Organization Address City/[facility]/ZIP Co de Phone Number [facility] [address] [place] [address], [place] [phone] * (ABNORMAL) Comprehensive metabolic panel (04/24/2025 3:31 PM EST) Only the most recent of3 resultswithin the time period is included. Sodium 134 133 - 145 mmol/L LAB CHEMISTRY METHOD 04/24/2025 4:19 PM [facility] Potassium 4.2 3.5 - 5.5 mmol/L LAB CHEMISTRY METHOD 04/24/2025 4:19 PM [facility] Chloride 104 96 - 110 mmol/L LAB CHEMISTRY METHOD 04/24/2025 4:19 PM [facility] CO2 26 21 - 32 mmol/L LAB CHEMISTRY METHOD 04/24/2025 4:19 PM [facility] Anion Gap 4 3 - 11 LAB CHEMISTRY METHOD 04/24/2025 4:19 PM [facility] Glucose 161(H) 70 - 100 mg/dL LAB CHEMISTRY METHOD 04/24/2025 4:19 PM [facility] BUN 10 5 - 25 mg/dL LAB CHEMISTRY METHOD 04/24/2025 4:19 PM [facility] Creatinine 0.67 0.50 - 1.10 mg/dL LAB CHEMISTRY METHOD 04/24/2025 4:19 PM [facility] eGFR 109 >=60 mL/min/1. 73m2 LAB CHEMISTRY METHOD 04/24/2025 4:19 PM [facility] Comment:Calculation based on the Chronic Kidney Disease Epidemiology Collaboration (CKD-EPI) equation refit without adjustment for race. BUN/Creatinine Ratio 14.9 LAB CHEMISTRY METHOD 04/24/2025 4:19 PM [facility] Calcium 9.3 8.5 - 10.5 mg/dL LAB CHEMISTRY METHOD 04/24/2025 4:19 PM [facility] AST (SGOT) 5(L) 10 - 42 unit/L LAB CHEMISTRY METHOD 04/24/2025 4:19 PM [facility] ALT (SGPT) 21 10 - 60 unit/L LAB CHEMISTRY METHOD 04/24/2025 4:19 PM [facility] Alkaline Phosphatase 49 42 - 121 unit/L LAB CHEMISTRY METHOD 04/24/2025 4:19 PM EST [facility] Total Protein 7.5 6.0 - 8.0 g/dL LAB CHEMISTRY METHOD 04/24/2025 4:19 PM EST [facility] Albumin 3.8 3.2 - 5.0 g/dL LAB CHEMISTRY METHOD 04/24/2025 4:19 PM EST [facility] Total Bilirubin 0.3 0.0 - 1.4 mg/dL LAB CHEMISTRY METHOD 04/24/2025 4:19 PM EST [facility] Blood Venous blood specimen / Unknown Venipuncture / Unknown 04/24/2025 3:31 PM EST 04/24/2025 3:47 PM EST us Jeremy HERNANDEZ LAB BLOOD ORDERABLES Final Result [facility] [address] [place] [address], [place] [phone] * CT Abdomen Pelvis w Contrast (03/23/2025 5:52 AM EDT) Only the most recent of2 resultswithin the time period is included. Anatomical Region Laterality Modality Body Computed Tomogra phy 03/23/2025 6:49 AM EDT Impressions 03/23/2025 6:49 AM EDT No acute findings. No evidence of bowel obstruction. Nephrolithiasis. This document has been electronically signed by: Fazal Bridges MD on 03/23/2025 06:49:23 Narrative 03/23/2025 6:49 AM EDT INDICATION: h/o SBO s/p bowel resection and anastamosis, here with 2d abd pain, no BM or flatus since yesterday CT abdomen and pelvis with contrast Comparison: CT/KO/OK/SR - CT ABD PEL W CONTRAST - 01/05/25 15:[address] - CT ABD PEL W CONTRAST - 03/03/2025 10:28 PM EDT Findings: The lung bases are clear. There are stable bilateral adrenal adenomas There is bilateral nephrolithiasis without evidence of obstructive uropathy. A tiny cyst is seen in the lower pole of the right kidney. The rest of the solid organs are unremarkable. The patient is status post ventral hernia repair and small-bowel resection with chronic focal postoperative dilatation as previously noted. There is no evidence of mechanical obstruction. Gas and stool are seen throughout the colon. The rest of the GI tract is unremarkable. . Pelvic contents unremarkable. Normal appendix. No acute fracture. Procedure Note Fazal Bridges MD - 03/23/2025 INDICATION: h/o SBO s/p bowel resection and anastamosis, here with 2d abd pain, no BM or flatus since yesterday CT abdomen and pelvis with contrast Comparison: CT/KO/OK/SR - CT ABD PEL W CONTRAST - 01/05/25 15:[address] - CT ABD PEL W CONTRAST - 03/03/2025 10:28 PM EDT Findings: The lung bases are clear. There are stable bilateral adrenal adenomas There is bilateral nephrolithiasis without evidence of obstructive uropathy. A tiny cyst is seen in the lower pole of the right kidney. The rest of the solid organs are unremarkable. The patient is status post ventral hernia repair and small-bowelresection with chronic focal postoperative dilatation as previously noted. Thereis no evidence of mechanical obstruction. Gas and stool are seen throughout the colon. The rest of the GI tract is unremarkable. . Pelvic contents unremarkable. Normal appendix. No acute fracture. IMPRESSION: No acute findings. No evidence of bowel obstruction. Nephrolithiasis. This document has been electronically signed by: Fazal Bridges MD on 03/23/2025 06:49:23 Zoe Godinez MD IM CT PROCEDURES Final Result * hCG, serum, qualitative (03/23/2025 4:57 AM EDT) Only the most recent of2 resultswithin the time period is included. hCG Qual Negative Negative 03/23/2025 5:22 AM EDT [facility] Blood Venous blood specimen / Unknown Venipuncture / Unknown 03/23/2025 4:57 AM EDT 03/23/2025 5:00 AM EDT us Zoe Godinez MD LAB BLOOD ORDERABLES Final Res ult [facility] [address] [place] [address], [place] [phone] * (ABNORMAL) Urinalysis with reflex microscopic and culture (03/23/2025 4:20 AM EDT) Pathologist [facility] [place] Urine 1.014 1.003 - 1.030 LAB URINALYSIS - AUTOMATED METHOD 03/23/2025 4:52 AM [facility] pH, Urine 6.5 5.0 - 8.0 pH LAB URINALYSIS - AUTOMATED METHOD 03/23/2025 4:52 AM [facility] Leukocytes, Urine Trace(A) Negative LAB URINALYSIS - AUTOMATED METHOD 03/23/2025 4:52 AM [facility] Nitrite, Urine Negative Negative LAB URINALYSIS - AUTOMATED METHOD 03/23/2025 4:52 AM [facility] Protein, Urine Negative <=Trace mg/dL LAB URINALYSIS - AUTOMATED METHOD 03/23/2025 4:52 AM [facility] Glucose, Urine Negative Negative mg/dL LAB URINALYSIS - AUTOMATED METHOD 03/23/2025 4:52 AM [facility] Ketones, Urine Negative Negative mg/dL LAB URINALYSIS - AUTOMATED METHOD 03/23/2025 4:52 AM [facility] Urobilinogen, Urine 1.0 0.2 - 1.0 mg/dL LAB URINALYSIS - AUTOMATED METHOD 03/23/2025 4:52 AM [facility] Bilirubin, Urine Negative Negative LAB URINALYSIS - AUTOMATED METHOD 03/23/2025 4:52 AM [facility] Blood, Urine Negative Negative LAB URINALYSIS - AUTOMATED METHOD 03/23/2025 4:52 AM EDT [facility] RBC, Urine 1.2 0 - 4 /HPF LAB URINALYSIS - AUTOMATED METHOD 03/23/2025 4:52 AM EDT [facility] WBC, Urine 2.5 0 - 4 /HPF LAB URINALYSIS - AUTOMATED METHOD 03/23/2025 4:52 AM EDT [facility] Squamous Epithelial, Urine 21 0 - 60 /LPF LAB URINALYSIS - AUTOMATED METHOD 03/23/2025 4:52 AM EDT [facility] Bacteria, Urine Negative Negative /HPF LAB URINALYSIS - AUTOMATED METHOD 03/23/2025 4:52 AM EDT [facility] Hyaline Casts, Urine 1.2 0 - 3 /LPF LAB URINALYSIS - AUTOMATED METHOD 03/23/2025 4:52 AM EDT [facility] Urine Urine specimen obtained by clean catch procedure / Unknown Non-blood Collection / Unknown 03/23/2025 4:20 AM EDT 03/23/2025 4:45 AM EDT us Zoe Godinez MD LAB URINE ORDERABLES Final Res ult [facility] [address] [place] [address], * Rubin urine culture tube (03/23/2025 4:20 AM EDT) Extra Tube Hold for add-ons. 03/23/2025 6:01 AM EDT [facility] Comment:Auto resulted. Urine Urine specimen obtained by clean catch procedure / Unknown Non-blood Collection / Unknown 03/23/2025 4:20 AM EDT 03/23/2025 4:44 AM EDT us Zoe Godinez MD LAB URINE ORDERABLES Final Res ult [facility] [address] [place] [address], [place] [phone] * Culture urine (03/23/2025 4:20 AM EDT) Culture, Urine No growth 03/24/2025 11:36 AM EDT [facility] Urine Urine specimen obtained by clean catch procedure / Unknown Non-blood Collection / Unknown 03/23/2025 4:20 AM EDT 03/23/2025 4:52 AM EDT us Zoe Godinez MD LAB MICROBIOLOGY - GENERAL ORD ERABLES Final Result [facility] [address] [place] [address], [place] [phone] * US Pelvis Transvaginal Non OB (03/03/2025 9:01 PM EDT) Anatomical Region Laterality Modality Body Ultrasound 03/03/2025 9:44 PM EDT Impressions 03/03/2025 9:44 PM EDT 1. Thickened endometrium measuring 1.5 cm. 2. Right ovary not visualized secondary to overlying bowel gas. 3. Left ovarian cyst measuring 2 cm. This document has been electronically signed by: Demetra Cruz MD on 03/03/2025 21:44:01 Narrative 03/03/2025 9:44 PM EDT INDICATION: pain US pelvis transvaginal Comparison: None provided Findings: Transvaginal scanning performed. Anteverted uterus is 8.9 x 4.7 x 4.8 cm length. Normal myometrium. Thickened endometrium measuring 1.5 cm. Right ovary not visualized secondary to overlying bowel gas. Left ovarian cyst measuring 2 cm. Normal color Doppler of left ovary. No free fluid. Procedure Note Demetra Cruz MD - 03/03/2025 INDICATION: pain US pelvis transvaginal Comparison: None provided Findings: Transvaginal scanning performed. Anteverted uterus is 8.9 x 4.7 x 4.8 cm length. Normal myometrium. Thickened endometrium measuring 1.5 cm. Right ovary not visualized secondary to overlying bowel gas. Left ovarian cyst measuring 2 cm. Normal color Doppler of left ovary. No free fluid. IMPRESSION: 1. Thickened endometrium measuring 1.5 cm. 2. Right ovary not visualized secondary to overlying bowel gas. 3. Left ovarian cyst measuring 2 cm. This document has been electronically signed by: Demetra Cruz MD on 03/03/2025 21:44:01 Tono HERNANDEZ IMG US PROCEDURES Final Res ult * POC , urine manually resulted (03/03/2025 8:20 PM EDT) Pathologist [facility] HCG, Ur POC Negative Negative [facility] POC hCG Int QC Pass? Yes Yes [facility] Urine Urine specimen obtained by clean catch procedure / Unknown 03/03/2025 8:20 PM EDT Tono HERNANDEZ POINT OF CARE TEST ENTER/ED IT ORDERABLES Final Result [facility] [address] [place] [address], [place] [phone] * Urinalysis with reflex microscopic (03/03/2025 8:07 PM EDT) Pathologist [facility] [place] Urine 1.015 1.003 - 1.030 LAB URINALYSIS - AUTOMATED METHOD 03/03/2025 8:43 PM EDT [facility] pH, Urine 6.5 5.0 - 8.0 pH LAB URINALYSIS - AUTOMATED METHOD 03/03/2025 8:43 PM EDT [facility] Leukocytes, Urine Negative Negative LAB URINALYSIS - AUTOMATED METHOD 03/03/2025 8:43 PM EDT [facility] Nitrite, Urine Negative Negative LAB URINALYSIS - AUTOMATED METHOD 03/03/2025 8:43 PM EDT [facility] Protein, Urine Negative <=Trace mg/dL LAB URINALYSIS - AUTOMATED METHOD 03/03/2025 8:43 PM EDT [facility] Glucose, Urine Negative Negative mg/dL LAB URINALYSIS - AUTOMATED METHOD 03/03/2025 8:43 PM EDT [facility] Ketones, Urine Negative Negative mg/dL LAB URINALYSIS - AUTOMATED METHOD 03/03/2025 8:43 PM EDT [facility] Urobilinogen, Urine 1.0 0.2 - 1.0 mg/dL LAB URINALYSIS - AUTOMATED METHOD 03/03/2025 8:43 PM EDT [facility] Bilirubin, Urine Negative Negative LAB URINALYSIS - AUTOMATED METHOD 03/03/2025 8:43 PM EDT [facility] Blood, Urine Negative Negative LAB URINALYSIS - AUTOMATED METHOD 03/03/2025 8:43 PM EDT [facility] Urine Urine specimen obtained by clean catch procedure / Unknown Non-blood Collection / Unknown 03/03/2025 8:07 PM EDT 03/03/2025 8:16 PM EDT Tono HERNANDEZ LAB URINE ORDERABLES Final Result [facility] [address] [place] [address], from Last 3 Months Insurance MEDICAID - [place] Care Teams National Account Director Relationship Specialty Start Date End Date Physician, No Pcp PCP - General 03/23/25
[2025-05-30 01:22] LABS: UPreg QC Valid YES
[2025-05-30] MEDS: iohexoL 350 MG/ML 100 ML INFUS..BTL 85 ML IV (01:35)
[2025-05-30] MEDS: Lactated Ringers 1,000 ML 100 ML IVCONT ×3 (02:51→20:25)
[2025-05-30 04:37] LABS: MANUAL DIFF FLAG NO
[2025-05-30 04:42] LABS: Hematocrit 36.8 % (37.0-47.0); Hemoglobin 12.5 g/dl (12.0-16.0); Imm Gran Abs Auto 0.15 X10*3/uL (0.00-0.03); Imm Gran Pct Auto 1.6 % (0.0-0.4); Lymphocytes Absolute Auto 3.3 X10*3/uL (1.2-4.9); Mean Corpuscular HGB Conc 34.0 g/dl (31.0-35.0); Mean Corpuscular Hemoglobin 30.9 pg (27.0-33.0); Mean Corpuscular Volume 91.1 fL (80.0-98.0); NRBC Abs Auto 0.000 X10*3/uL (0.0-0.012); NRBC Pct Auto 0.0 /100WBC (0.0-0.2); Platelet Count 231 X10*3/uL (160-400); Red Blood Count 4.04 X10*6/uL (4.20-5.50); White Blood Count 9.4 X10*3/uL (4.8-10.8)
[2025-05-30 05:07] LABS: Anion Gap 11 (12-20); Blood Urea Nitrogen 18 mg/dL (9-16); Calcium 8.5 mg/dL (8.4-10.2); Carbon Dioxide 25 mmol/L (22-29); Chloride 106 mmol/L (96-108); Creatinine Clr Calc Pharmacy 107.6; Estimated Glomerular Filt Rate > 60; Potassium 4.1 mmol/L (3.3-5.1); Sodium 138 mmol/L (135-145)
--- NOTE | 2025-05-30 07:39 | PC.NURSE ---
Assumed care of pt, appears in NAD, describing 9/10 upper abd pain, + BS throughout. Last meal last night 7pm. Seen by surgeon. Denies nausea, vomiting. Given PRN dilaudid as requested. Aware of plan for care, NPO status.
--- NOTE | 2025-05-30 08:56 | PHA.MEDREC ---
Addendum entered by Burke Sage [facility] 05/30/25 09:21: MED REC REVIEWED BY [facility] Addendum entered by Catherine Murry 05/30/25 09:08: Pt confirmed she cuts her Sertraline 50mg tabs in 1/2 (25mg) due to the full 50mg being too strong for pt and pt takes all her medications at bedtime for convenience. Original Note: Pharmacy Consult ? Medication Reconciliation Pharmacy has completed the medication reconciliation.Spoke with pt and she confirmed her medications. Pt verbally confirmed she is still taking Janument 50/1000mg tab once daily@1999; pt last filled that 01/29 for 30 days QTY 60 for 30, pt confirmed she has been taking her Janument once daily for awhile now .
--- NOTE | 2025-05-30 09:19 | PM.HPGS ---
History of Present Illness History of Present Illness Date of Service: 05/30/25 Chief complaint: SBO Narrative: Herminia Grimaldo is a 49 year old female with a history of diabetes, hernia repair, SBO with laparotomy and small bowel resection. subsequent incisional hernia repair, multiple c sections x4 who presented to the ED with a few day history of worsening abdominal pain nausea and vomiting and bloating. States it feels very similar to her previous episode in which she had to have a small-bowel resection. Workup in the ED significant for mild leukocytosis no electrolyte imbalances. CT of the abdomen and pelvis concerning for small-bowel obstruction distal to small bowel anastomosis with small bowel dilation. To note there was also a heavy stool burden in the large bowel extending to the cecum. She states that yesterday she was able to pass gas, even some small stool. But has not been passing gas has not had a bowel movement since yesterday. Typically she goes every other day but has irregular bowel habits. Currently denies nausea or vomiting. But still feels very bloated. [facility] Past Medical History Medical History (Updated 05/30/25 @ 09:04 by Sabina Goff RN) Bowel obstruction Hypercholesteremia Migraines Diabetes mellitus, type 2 Surgical History Surgical History (Updated 05/30/25 @ 09:05 by Sabina Goff RN) History of bowel resection Social History Social History Household Members: Children Housing: Apartment Do you presently have visiting nurse or other home services: No Alcohol intake: never Patient Tobacco Use Status: Current everyday Tobacco user Tobacco use type: Cigarette Cigarettes Per Day: 10 Smoked in Last 30 Days: Yes Patient Interested in Nicotine Replacement: No Patient Given Instructions on How to Stop Smoking: No Second Hand Smoke Exposure: No Use of substances other than those prescribed or required for medical reasons: No Have you been hit, kicked, punched, or otherwise hurt by someone within the past year? If so, by whom?: No Do you feel safe in your current relationship?: Yes Is there a partner from a previous relationship who is making you feel unsafe now?: No Are you made to feel afraid or neglected: No Advance Directives: No Advance Directives Information Provided: Yes Do you have a plan to hurt others: No Plan Recently lost weight without trying: No Eating poorly because of decreased appetite: No Nutrition Risks: No Nutritional Risk Patient : No : No Poor oral hygiene: No Meds Allergies Allergy/AdvReac Type Severity Reaction Status Date / Time Penicillins (PENICILLINS) Allergy Unknown HIVES Verified 05/30/25 01:19 tramadol (TRAMADOL) Allergy Unknown VOMITING Verified 05/30/25 01:19 ibuprofen (IBUPROFEN) AdvReac Unknown NAUSEA & Verified 05/30/25 01:19 VOMITING Active Medications: Current Medications Hydromorphone HCl (Hydromorphone Hcl 1 Mg/Ml Syringe) 0.5 mg IVPUSH Q4H PRN; Protocol PRN Reason: Pain, Severe (Pain Scale 7-10) Last Admin: 05/30/25 07:31 Dose: 0.5 mg Lactated Ringer's (Lr) 1,000 mls @ 100 mls/hr IVCONT .Q10H DEREK Last Admin: 05/30/25 02:51 Dose: 100 mls/hr Ondansetron HCl (Ondansetron Hcl 4 Mg/2 Ml Vial) 4 mg IVPUSH Q8H PRN PRN Reason: Nausea and Vomiting Sodium Chloride (0.9 % Sodium Chloride Flush 3 Ml Syringe) 3 ml IVFLUSH QSHIFT [facility] Last Admin: 05/30/25 07:34 Dose: Not Given Home Medications ?Medication ?Instructions ?Recorded ?Confirmed ?Last Taken ?Type atorvastatin 10 mg tablet 10 mg PO BEDTIME 05/30/25 05/30/25 05/28/25 History sertraline 50 mg tablet 25 mg PO BEDTIME 05/30/25 05/30/25 05/28/25 History sitagliptin phosphate 50 1 tab PO DAILY@199905/30/25 05/30/25 05/28/25 History mg-metformin 1,000 mg tablet (Janumet) topiramate 50 mg tablet 50 mg PO BEDTIME 05/30/25 05/30/25 05/28/25 History Physical Exam Vital Signs: Vital Signs: Last Vital Signs Temp 97.1 F 05/30/25 09:08 Pulse 57 05/30/25 09:08 Resp 16 05/30/25 09:08 BP 99/60 05/30/25 09:08 Pulse Ox 97 05/30/25 09:08 O2 Del Method Room Air 05/30/25 09:08 BMI result Body Mass Index 26.9 Const: General: comfortable and no acute distress Orientation/consciousness: patient oriented x3 GI: Inspection: Yes distended (Moderately distended) and Yes scar (Laparotomy, laparoscopic scars) Palpation (GI): Soft to palpation, Tenderness to palpation present (GI) (Generally tender throughout) and no guarding Percussion: Yes tympanic to percussion Neuro: General: patient oriented x3 Results Results Labs: Short CBC 05/29/25 05/30/25 Range/Units 21:45 04:29 WBC 10.9 H 9.4 (4.8-10.8) X10*3/uL Hgb 13.0 12.5 (12.0-16.0) g/dl Hct 37.8 36.8 L (37.0-47.0) % Plt Count 265 231 (160-400) X10*3/uL BMP 05/29/25 05/30/25 21:45 04:29 Sodium 136 138 Potassium 3.5 4.1 Chloride 101 106 Carbon Dioxide 24 25 BUN 19 H 18 H Creatinine 0.78 0.64 Calcium 9.5 8.5 D Liver Function 05/29/25 Range/Units 21:45 Total Bilirubin 0.3 (0.0-1.0) mg/dL AST 17 (5-31) U/L ALT 14 (0-31) U/L Alkaline Phosphatase 48 (39-117) U/L Albumin 4.6 (3.5-5.0) g/dL Urine 05/29/25 Range/Units 23:04 Urine Color Yellow Urine Appearance Clear Urine pH 6.5 (5.0-9.0) Ur Specific [place] 1.020 (1.005-1.025) Urine Protein Negative (Neg-Trace) mg/dL Urine Glucose (UA) >=1000 H (Negative) mg/dL Urine Test NEGATIVE (NEGATIVE) Assessment and Plan (1) Small bowel obstruction: Status: Acute Plan 49 year old female with a history of diabetes, hernia repair, SBO with laparotomy and small bowel resection, subsequent incisional hernia repair, multiple c sections (x4) who presented to the emergency department with a few day history of worsening abdominal pain with nausea and vomiting and bloating. Found to have small-bowel obstruction just distal to anastomosis with proximal small bowel gastric dilation on CT scan. Also there was a heavy stool burden throughout the colon so will need to have a light bowel regimen on board. Currently symptoms of nausea and vomiting have resolved. But she continues to feel bloated. Her abdomen is soft, generally tender throughout the abdomen, distended. Not currently passing gas or stools. She is currently not requiring NG tube as she is no longer nauseous but we will have a short threshold further NG tube placement if she develops worsening nausea or vomiting. She will remain NPO but can have sips of clear water for now. We will slowly advanced. She has improvement. NPO with sips Serial abdominal exams IV fluids Quality Stroke Does the patient have a stroke diagnosis?: No VTE Prior VTE?: No VTE Risk Level:: Surgical - moderate VTE Device Contraindication: N/A - Device Ordered VTE Drug Contraindication: Treatment Not Indicated Procedures Date of Service Date of Service: 05/30/25
[2025-05-30 10:00] LABS: Glucose, Whole Blood 150 mg/dL (60-115)
[2025-05-30 12:04] LABS: Glucose, Whole Blood 146 mg/dL (60-115)
--- NOTE | 2025-05-30 13:57 | MHC.CM.PN ---
PT REPORTS SHE LIVES WITH HER ADULT SONS AND IS INDEPENDENT WITH CARE SHE HAS NO DME OR SERVICES PCP AT [facility], [place] [facility] [place] HCP COMPLETED TODAY NAMING HER SON, AMINA MULLEN [phone] HER AGENT DCP: HOME VIA PRIVATE TRANSPORT
[2025-05-30 16:17] LABS: Glucose, Whole Blood 137 mg/dL (60-115)
--- NOTE | 2025-05-30 19:19 | PC.NURSE ---
Approximately 1650- patient reporting feeling hungry and potentially wanting to leave AMA. MARY Prince notified. Discussed patient status with provider- patient has had no BM or flatus. +BSx4 and patient frequently ambulating in hallway. Patient requesting cranberry juice if unable to have solids. MARY Prince stated patient may be able to start clear liquids in morning if patient is doing well, but is to remain NPO with small sips of water at this time. Patient informed of this and was agreeable to try staying through the night. Patient educated on purpose and importance of bowel rest. Patient verbalized understanding.
[2025-05-30 20:24] LABS: Glucose, Whole Blood 117 mg/dL (60-115)
--- NOTE | 2025-05-30 22:32 | PM.DS ---
DS: Providers Provider Date of admission: 05/30/25 02:38 Date of discharge: 05/30/25 Primary care physician: [facility] Attending physician on admission: Blayne Hernandez Attending physician on discharge: Blayne Hernandez DS: Diagnosis Discharge Diagnosis (1) Small bowel obstruction: Status: Acute DS: Summary Hospital Course Hospital Course: HPI AT ADMISSION: Herminia Grimaldo is a 49 year old female with a history of diabetes, hernia repair, SBO with laparotomy and small bowel resection. subsequent incisional hernia repair, multiple c sections x4 who presented to the ED with a few day history of worsening abdominal pain nausea and vomiting and bloating. States it feels very similar to her previous episode in which she had to have a small-bowel resection. Workup in the ED significant for mild leukocytosis no electrolyte imbalances. CT of the abdomen and pelvis concerning for small-bowel obstruction distal to small bowel anastomosis with small bowel dilation. To note there was also a heavy stool burden in the large bowel extending to the cecum. She states that yesterday she was able to pass gas, even some small stool. But has not been passing gas has not had a bowel movement since yesterday. Typically she goes every other day but has irregular bowel habits. Currently denies nausea or vomiting. But still feels very bloated. HOSPITAL COURSE: She was admitted to the surgical service for further treatment of the SBO. NGT was held as she was not vomiting and her nausea resolved. Her abdomen was benign and supportive measures were continued with IV hydration and bowel rest with plan for advancement as tolerated with return of GI function. She however wanted to eat and it was recommended to continue just sips of liquids for now by the multi operation machine operator provider. She was educated by the RN. She ended up leaving AMA later in the evening. Time Attestation Discharge Coordination Time (in mins): 25 Quality: Safe Use of Opioids Does Pt have an Active Cancer Diagnosis on the Problem List?: No Quality: Stroke Does the patient have a stroke diagnosis?: No Physical Exam Vital Signs: Vital Signs: Last Vital Signs Temp 97.6 F 05/30/25 19:05 Pulse 58 05/30/25 19:05 Resp 16 05/30/25 19:05 BP 101/63 05/30/25 19:05 Pulse Ox 96 05/30/25 19:05 O2 Del Method Room Air 05/30/25 19:05 BMI result Body Mass Index 26.9 DS: Data Data Completed and Pending Labs on day of discharge: Laboratory Results - last 24 hr 05/30/25 05/30/25 16:13 20:10 POC Glucose 137 H 117 H Discharge Plan Discharge Patient Disposition: Left Against Medical Advice Discharge Diagnosis: SBO Referrals: [facility] [Primary Care Provider, Primary Care] - 1 Week Discharge Medications: No Action atorvastatin 10 mg tablet 10 mg PO BEDTIME sertraline 50 mg tablet 25 mg PO BEDTIME topiramate 50 mg tablet 50 mg PO BEDTIME Janumet 50-1,000 mg tablet 1 tab PO DAILY@1999 Discharge Orders: Discharge Order (Routine); Ordered 05/31/25 Ordered By: Annalee Gillespie Print Language: Malay Care Plan Goals: left AMA Health Concerns: left AMA Plan of Treatment: left AMA Assessment: left AMA Discharge Date/Time: 05/30/25 21:30
--- NOTE | 2025-05-30 22:48 | PC.NURSE ---
Pt seen on bed at 1899, alert and oriented, still with right sided abd tenderness, prn Morphine given with relief, pt also verbalized wanting to eat, reiterated to pt her NPO diet order and its importance. At 2114 pt decided to go AMA, as she cant stay not eating at all, Dr. Valderrama was notified, and advised that pt be maintianed on NPO, information was relayed to the pt, pt still insisted on going AMA, AMA form was signed and witnessed, ivline removed and site is benign, pt left the unit at 2129 ambulating fairly and claimed she has a ride home coming, way out instructed to pt.
== END 2025-05-30 21:30 | disposition left against medical advice (07) | DRG 247 ==
LOC: HO.ED 05-30 02:40 → HO.EDOVER 05-30 02:48 → HO.S3 05-30 07:41
PROVIDERS: Physician Assistant; Admitting Provider Physician Assistant Surgical; Emergency Provider Student in an Organized Health Care Education/Training Program; PCP Dentist General Practice; Visit Provider Physician Assistant Surgical
DX: K56.609 Unspecified intestinal obstruction, unspecified as to partial versus complete obstruction (principal); F17.210 Nicotine dependence, cigarettes, uncomplicated; Z71.6 Tobacco abuse counseling; Z79.899 Other long term (current) drug therapy
CPT/HCPCS: 36415; 74177; 80048; 80053; 81001; 81025; 82947; 83605; 85025; 99285; J1171; J2270; J2405; J7120; Q9967

== ENCOUNTER → 2025-05-30 01:09 | Outpatient (BNV) | payer MEDICAID, SELFPAY | PROVIDERS: Admitting Provider Physician Assistant Surgical; Emergency Provider Student in an Organized Health Care Education/Training Program; PCP Dentist General Practice; Visit Provider Radiology Neuroradiology | DX: K31.0 Acute dilatation of stomach (principal) | CPT/HCPCS: 74177 ==

== ENCOUNTER → 2025-05-30 02:38 | Outpatient (BNV) | payer MEDICAID, SELFPAY | PROVIDERS: Admitting Provider Physician Assistant Surgical; Emergency Provider Student in an Organized Health Care Education/Training Program; PCP Dentist General Practice | DX: K56.609 Unspecified intestinal obstruction, unspecified as to partial versus complete obstruction (principal) | CPT/HCPCS: 99223 ==

== ENCOUNTER 2025-06-11 18:00 | Emergency (ER) | payer MEDICAID, SELFPAY ==
--- OUTSIDE RECORDS SUMMARY | 2025-06-06 23:59 | XMS_ITS | Continuity of Care Document ---
Author Organization [facility] Address [address] [place] [address] [address] [place] [address]- Care Team Providers Care Crab Fisher Name Role Phone Aurea Echavarria Primary Care Physician [phone] [facility] Date(s): 05/07/25 - 06/06/[address] [place], [place] [address] Attending Physician: Stephanie Knott Admitting Physician: AdmStephanie lopez Referring Physician: AdmtrStephanie Encounter Type: Triage Allergies, Adverse Reactions, Alerts Substance Criticality Severity Reaction Reaction Severity Status penicillin Swelling of thr oat Hives Active aspirin Very Nauseaus Active Immunizations Given and Recorded Vaccine Date Status Refusal Reason tetanus/diphtheria/pertussis, acel(Tdap) 1 06/13/07 Given 1Admin Note: RECORD Medications famotidine 20 mg oral tablet 20 mg, 1, tablet, By Mouth, Daily, # 30 tablet, Refills 0, Tot. Refills 0, Maintenance, 10/19/23 2:51:00 AM EDT, Route to Pharmacy Electronically, [id number], Partial fill upon patientrequest if the prescription is for a schedule II opioid drug., 5.4, cm, 10/18/23 21:29:00 EDT, Height, 79.5, kg, 10/18/23 21:29:00 EDT, Dry Weight Start Date: 10/19/23 Status: Ordered Medication Dispense Status: Completed Quantity: 30.0 Unit: tablet Total Allowed Fills: 1 Fills Dispensed: 0 Janumet XR 50 mg-1000 mg oral tablet, extended release 1 tablet, By Mouth, 2 times a day, # 30 tablet, 0 Refills, Maintenance, 10/15/21 11:30:00 AM EDT, ER Tablet, Partial fill upon patient request if the prescription is for a schedule II opioid drug. Start Date: 10/15/21 Status: Ordered Medication Dispense Status: Completed Quantity: 30.0 Unit: tablet Total Allowed Fills: 1 Fills Dispensed: 0 topiramate 25 mg oral tablet 2 tablet = 50 mg, By Mouth, Daily at bedtime, 0 Refills, Maintenance, 08/12/22 4:20:00 AM EST, Partial fill upon patient request if the prescription is for a schedule II opioid drug. Start Date: 08/12/22 Status: Ordered Medication Dispense Status: Completed Total Allowed Fills: 1 Fills Dispensed: 0 Problem List Condition Confirmation Course Effective Dates Status Health St [facility]us Informant Anxiety depression Confirmed Active Obesity Confirmed Active Seroma Confirmed Active Type 2 diabetes mellitus Confirmed Active Social History Social History Type Response Smoking Status 5-9 cigarettes (betw een 1/4 to 1/2 pack)/day in last 30 days; Interested in cessation: Yes; Patient wants NRT during admission No entered on: 08/07/22 Sex Sex Representation Female (finding) Implantable Device List Procedure Provider Procedure Date Device Type Site Repair Hernia Incisional Open Juan Diego Ignacio MD 09/17/22 Unknown Abdomen Device Identifier Serial Number Lot or Batch Number Manufacturing Date Expiration Date Distinct Identification Code MRI Safety Implantable Status Assigning Authority Unknown Unknown Unknown Unknown 09/08/23 Unknown Unknown Active Unk nown Patient Care team information Care Team Personnel Name: Aurea Echavarria Position: [facility] Outreach Member Role: PCP Address: [address] [place] [address] Telecom: Name: Jodee Staton RN Position: [facility] RN Member Role: Primary Care Nurse Name: Rachana Arroyo RN Position: [facility] RN Member Role: Primary Care Nurse Name: Clint Yap RN Position: [facility] RN Supv Member Role: Primary Care Nurse Name: Cecilia Damon RN Position: [facility] RN Member Role: Primary Care Nurse Name: Jimnea Sanchez RN Position: S RN Member Role: Primary Care Nurse Name: Tressa Bahena RN Position: S RN Member Role: Primary Care Nurse Name: Efrain Persaud RN Position: S RN Member Role: Primary Care Nurse Care Team Related Persons Name: CHAPO FLOWER Name: MARISELA HURLEY Insurance Providers Guarantor name: SABA [facility] Information #: 1 Payer: [employer] Payer Identifier: CATRACHITA Member Number: [id number] Group Number: [id number] Subscriber Identifier: CATRACHITA Relationship to Subscriber: self Coverage Type: MEDICAID Coverage Verification Date: NA Telecom: NA Address: NA
--- OUTSIDE RECORDS SUMMARY | 2025-06-06 23:59 | XMS_ITS | Continuity of Care Document ---
Author Organization [facility] Address [address] [place] [address] [address] [place] [address]- Care Team Providers Care Senior Revenue Accountant Name Role Phone Aurea Echavarria Primary Care Physician [id number] Date(s): 05/02/25 - 06/06/[address] [place], [place] [address] Attending Physician: Neli Noland MD Encounter Type: Pre Office Visit Allergies, Adverse Reactions, Alerts Substance Criticality Severity [...] 2:51:00 AM EDT, Route to Pharmacy Electronically, [facility] #[id number], Partial fill upon patientrequest if the prescription [...] Care Team Personnel Name: Aurea Echavarria Position: [facility] Outreach Member Role: PCP Address: [address] [place] [address] Telecom: Name: Jodee Staton RN Position: [facility] RN Member Role: Primary Care Nurse Name: Rachana Arroyo RN Position: [facility] RN Member Role: Primary Care Nurse Name: Clint Yap RN Position: [facility] RN Supv Member Role: Primary Care Nurse Name: Cecilia Damon RN Position: S RN Member Role: Primary Care Nurse Name: Jimena Sanchez RN Position: [facility] RN Member Role: Primary Care Nurse Name: Tressa Bahena RN Position: [facility] RN Member Role: Primary Care Nurse Name: Efrain Persaud RN Position: [facility] RN Member Role: Primary Care Nurse Care Team Related Persons Name: CHAPO FLWOER Name: MARISELA HURLEY Insurance Providers Guarantor name: SABA QUESADA [facility] Information #: 1 Payer: [employer] Payer Identifier: NA Member Number: [id number] Group Number: [id number] Subscriber Identifier: [id number] Relationship to Subscriber: self Coverage Type: MEDICAID Coverage Verification Date: NA Telecom: NA Address: NA
--- NOTE | ~2025-06-11 | XR_ITS ---
CLINICAL HISTORY: abdominal pain 1 view abdomen Comparison: CT abdomen 05/30/2025 Findings: Normal bowel gas pattern. Normal stool quantity. No abnormal calcifications. No pneumoperitoneum or pneumatosis. Bones unremarkable. Multiple hernia anchors overlie the abdomen and pelvis. Impression: 1. Normal bowel gas pattern This document has been electronically signed by: Tavo King MD on 06/11/2025 19:47:48
--- NOTE | ~2025-06-11 | CT_ITS ---
CLINICAL HISTORY: sbo, ? CT abdomen and pelvis with contrast Comparison: CT/REG/SR - CT ABDOMEN PELVIS W IV CON - 05/30/25 01:[address]/[place] - CT ABDOMEN PELVIS WITH IV CONTRAST - 09/05/22 18:49 EDT Findings: Mild atelectasis at lung bases. There are a few small nonobstructing bilateral renal stones, no larger than 4 mm. Subcentimeter segment 2 liver cyst. Right liver length 21.5 cm. Indeterminate bilateral adrenal nodules, 2 cm each. Similar on prior exams. Gallbladder and solid organs otherwise unremarkable. No bowel obstruction, pneumoperitoneum, or pneumatosis. Moderate stool. Mesenteric vessels are patent. Uterus and ovaries unremarkable. Normal appendix. The bones are intact. IMPRESSION: 1. Moderate stool. No bowel obstruction. 2. Hepatomegaly. 3. Nonobstructing bilateral nephrolithiasis. 4. Indeterminate bilateral adrenal nodules are similar on the prior exams. Further follow-up can be based on clinical assessment. This document has been electronically signed by: Agustin Sanchez MD on 06/12/2025 02:49:00
[2025-06-11 18:14] VITALS: BP 113/66; PULSE 74; RESP 16; TEMP 36.7; O2SAT 100; BMI 28.1
--- NOTE | 2025-06-11 18:19 | ED.ABDPAIN ---
HPI - Abdominal Pain General Chief Complaint: Abdominal Pain Stated Complaint: small bowel obstruction Time Seen by Provider: 06/11/25 23:12 Source: patient Limitations: no limitations History of Present Illness ED Provider: Brandi Lanier PA-C HPI narrative: 49-year-old female with a prior bowel obstruction status post partial bowel resection, migraine, diabetes, hyperlipidemia who presents with the abdominal pain x2 days. Associated abdominal distention, not passing flatus, she is constipated, passing minimal stool. Associated nausea, denies active vomiting or fever. Related Data Home Medications ?Medication ?Instructions ?Recorded ?Confirmed atorvastatin 10 mg tablet 10 mg PO BEDTIME 05/30/25 05/30/25 sertraline 50 mg tablet 25 mg PO BEDTIME 05/30/25 05/30/25 sitagliptin phosphate 50 1 tab PO DAILY@199905/30/25 05/30/25 mg-metformin 1,000 mg tablet (Janumet) topiramate 50 mg tablet 50 mg PO BEDTIME 05/30/25 05/30/25 Previous Rx's ?Medication ?Instructions ?Recorded cephalexin 500 mg capsule 500 mg PO Q12H #14 caps 06/12/25 ketorolac 10 mg tablet 10 mg PO Q6H PRN pain #20 tabs 06/12/25 ondansetron 4 mg disintegrating 4 mg PO Q8H PRN nausea and 06/12/25 tablet vomiting #10 tabs phenazopyridine 200 mg tablet 200 mg PO TID PRN dysuria #10 tabs 06/12/25 (Pyridium) Allergies Allergy/AdvReac Type Severity Reaction Status Date / Time Penicillins (PENICILLINS) Allergy Unknown HIVES Verified 06/11/25 18:17 tramadol (TRAMADOL) Allergy Unknown VOMITING Verified 06/11/25 18:17 ibuprofen (IBUPROFEN) AdvReac Unknown NAUSEA & Verified 06/11/25 18:17 VOMITING Review of Systems Review of Systems Yes all other systems are reviewed and are negative Constitutional: Denies fatigue and Denies fever(s) Cardiovascular: Denies chest pain and Denies dyspnea Respiratory: Denies dyspnea Gastrointestinal: Reports abdominal pain, Reports bloating, Reports constipation, Reports nausea and Denies vomiting Endocrine: Denies fatigue PMFSH Past Medical History Attestation statement: The following information was validated with the patient. Medical History (Updated 06/12/25 @ 03:13 by MARY Burleson) Bowel obstruction Hypercholesteremia Migraines Diabetes mellitus, type 2 Surgical History (Updated 05/30/25 @ 09:05 by Sabina Goff RN) History of bowel resection Social History Social History Household Members: Children Housing: Apartment Do you presently have visiting nurse or other home services: No Alcohol intake: never Patient Tobacco Use Status: Current everyday Tobacco user Tobacco use type: Cigarette Cigarettes Per Day: 10 Smoked in Last 30 Days: Yes Second Hand Smoke Exposure: No Use of substances other than those prescribed or required for medical reasons: No Advance Directives: No Advance Directives Information Provided: No Do you have a plan to hurt others: No Plan Patient : No service: No Physical Exam ED Vital Signs: Vital Signs - 24 hr 06/11/25 18:14 06/11/25 22:00 Temperature 98.0 F 97.6 F Pulse Rate 74 68 Respiratory Rate 16 17 Blood Pressure 113/66 136/89 Pulse Oximetry 100 99 Oxygen Delivery Method Room Air Room Air BMI result Body Mass Index 28.1 Const Other: Alert Orientation/consciousness: patient oriented x3 Resp Effort & Inspection: normal respiratory effort Cardio Other: Normal peripheral perfusion GI Other: Abdomen is objectively distended, generalized tenderness to palpation, maximum point is over umbilicus, mild guarding, no rigidity of the abdomen Skin Other: Warm dry no rash Neuro General: patient oriented x3, gait normal, no focal motor deficits and CN's II-XI intact bilaterally Psych Other: Cooperative Course Course Course Narrative: This is a Rapid Medical Exam performed in triage by Terra Sanchez PA-C. Full HPI, ROS and PE to be performed by primary ED provider. 49-year-old female with a past medical history SBO, diabetes, migraines, HLD presenting to the ED c/o abdominal pain, constipation without BM x2 days. Is passing flatus. Denies nausea or vomiting PE: Abdomen is soft diffusely tender Plan: Labs, UA Reevaluation(s) Reevaluation #1: Patient's urine is markedly infected passing hematuria, patient states she has had kidney stones in the past, she is denying discoloration of the urine, obvious blood or dysuria. Adding blood cultures and a lactic so I can give IV antibiotics. To note she is not febrile this is not for sepsis.... Nausea currently controlled, pain still present Time: 00:54 Medical Decision Making Medical Decision Making [facility] Narrative: 49-year-old female with a prior bowel obstruction status post partial bowel resection, migraine, diabetes, hyperlipidemia who presents with the abdominal pain x2 days. Associated abdominal distention, not passing flatus, she is constipated, passing minimal stool. Associated nausea, denies active vomiting or fever. Problem: Diabetes, prior obstruction History: Per patient I have considered the following differential diagnoses: Constipation, obstipation, fecal impaction, bowel obstruction Plan: Screening labs including KUB already obtained from triage, she has normal stool quality, the KUB was unremarkable, objectively she has distention with symptoms of obstruction, given her history obtaining a CT scan with the oral and IV contrast. Giving fluid antiemetic and morphine. I have independently reviewed the following tests: Labs: No leukocytosis, not anemic, no electrolyte abnormality, urine infected, lactic 1.5 KUB:Findings: Normal bowel gas pattern. Normal stool quantity. No abnormal calcifications. No pneumoperitoneum or pneumatosis. Bones unremarkable. Multiple hernia anchors overlie the abdomen and pelvis. Impression: 1. Normal bowel gas pattern This document has been electronically signed by: Paul CT abd pelvis: IMPRESSION: 1. Moderate stool. No bowel obstruction. 2. Hepatomegaly. 3. Nonobstructing bilateral nephrolithiasis. 4. Indeterminate bilateral adrenal nodules are similar on the prior exams. Further follow-up can be based on clinical assessment. Differential Diagnosis Differential Diagnoses: The differential diagnosis associated with the presentation includes See [facility] Admission/Observation Consideration of admission/observation: Escalation of care including admission/observation considered Lab Data [facility] Lab Attestation statement: I reviewed the patient's lab results. 06/11/25 19:37 06/11/25 19:37 Labs: Lab Results 06/11/25 06/12/25 06/12/25 Range/Units 19:37 00:12 01:11 WBC 8.7 (4.8-10.8) X10*3/uL RBC 4.46 (4.20-5.50) X10*6/uL Hgb 13.9 (12.0-16.0) g/dl Hct 40.2 (37.0-47.0) % MCV 90.1 (80.0-98.0) fL MCH 31.2 (27.0-33.0) pg MCHC 34.6 (31.0-35.0) g/dl RDW 12.6 (11.0-16.0) % Plt Count 282 (160-400) X10*3/uL MPV 10.4 (9.4-12.3) fL Immature Gran % (Auto) 1.3 H (0.0-0.4) % Neut % (Auto) 58.3 (45-73) % Lymph % (Auto) 30.1 (20-40) % Twiggs % (Auto) 8.2 (2-11) % Eos % (Auto) 1.4 (0-4) % Baso % (Auto) 0.7 (0-2) % Lymph # (Auto) 2.6 (1.2-4.9) X10*3/uL Twiggs # (Auto) 0.7 (0.1-1.2) X10*3/uL Eos # (Auto) 0.1 (0.0-0.4) X10*3/uL Baso # (Auto) 0.1 (0.0-0.2) X10*3/uL Abs Immat Gran (auto) 0.11 H (0.00-0.03) X10*3/uL Absolute Neuts (auto) 5.1 (2.0-8.3) x10*3/uL Absolute Nucleated RBC 0.000 (0.0-0.012) X10*3/uL Nucleated RBC % (auto) 0.0 (0.0-0.2) /100WBC Sodium 138 (135-145) mmol/L Potassium 3.9 (3.3-5.1) mmol/L Chloride 106 (96-108) mmol/L Carbon Dioxide 26 (22-29) mmol/L Anion Gap 10 L (12-20) BUN 13 (9-16) mg/dL Creatinine 0.67 (0.5-1.4) mg/dL Estim Creat Clear Calc 102.4 Estimated GFR > 60 Random Glucose 152 H (60-115) mg/dL Lactic Acid 1.5 (0.5-2.0) mmol/L Calcium 9.4 D (8.4-10.2) mg/dL Magnesium 1.8 (1.6-2.6) mg/dL Total Bilirubin 0.4 (0.0-1.0) mg/dL Direct Bilirubin 0.1 (0.0-0.5) mg/dL AST 18 (5-31) U/L ALT 13 (0-31) U/L Alkaline Phosphatase 52 (39-117) U/L Total Protein 7.7 (6.5-8.0) g/dL Albumin 4.7 (3.5-5.0) g/dL Lipase 35 (8-78) U/L Urine Color Red A Urine Appearance Turbid Urine pH 5.0 (5.0-9.0) Ur Specific Sulphur 1.020 (1.005-1.025) Urine Protein 300 (3+) H (Neg-Trace) mg/dL Urine Glucose (UA) Negative (Negative) mg/dL Urine Ketones Negative (Negative) mg/dL Urine Blood Large (3+) H (Negative) Urine Nitrite Positive H (Negative) Ur Leukocyte Esterase Moderate (2+) H (Negative) Urine RBC >20 H (0-2) /HPF Urine WBC >50 H (0-5) /HPF Ur Squamous Epith Cells 11-20 (0-2) /HPF Urine Bacteria 4+ (None Seen) Hyaline Casts 0-2 (0-2) /LPF Urine Test NEGATIVE (NEGATIVE) Radiology Impression Discussion of test interpretation with radiology: I have reviewed the radiologist's reading. Medications Administered Discontinued Medications Generic Name Dose Route Start Last Admin Trade Name Freq PRN Reason Stop Dose Admin Diatrizoate Meglum/Diatrizoate Sod 30 ml 06/12/25 01:40 06/12/25 01:40 Diatrizoate Meglumine, Sodium 30 Ml Solution PO 06/12/25 01:41 30 ml ONCE ONE Administration Sodium Chloride 1,000 mls @ 999 mls/hr 06/11/25 23:30 06/12/25 01:15 Ns IV 06/12/25 00:30 Infused .Q1H1M DEREK Infusion Ceftriaxone Sodium 2 gm/ 50 mls @ 100 mls/hr 06/12/25 00:48 06/12/25 01:50 Sodium Chloride IV 06/12/25 01:17 Infused ONCE ONE Infusion Iohexol 85 ml 06/12/25 01:36 06/12/25 01:39 Iohexol 350 Mg/Ml 100 Ml Infus..Btl IV 06/12/25 01:37 85 ml ONCE ONE Administration Morphine Sulfate 4 mg 06/11/25 23:17 06/11/25 23:40 Morphine Sulfate 4 Mg/Ml Cartridge IVPUSH 06/11/25 23:18 4 mg ONCE ONE Administration Protocol Morphine Sulfate 4 mg 06/12/25 00:54 06/12/25 01:15 Morphine Sulfate 4 Mg/Ml Cartridge IVPUSH 06/12/25 00:55 4 mg ONCE ONE Administration Protocol Ondansetron HCl 4 mg 06/11/25 23:17 06/11/25 23:41 Ondansetron Hcl 4 Mg/2 Ml Vial IVPUSH 06/11/25 23:18 4 mg ONCE ONE Administration Discharge Plan Discharge Clinical Impression: Constipation Qualifiers: Constipation type: unspecified constipation type Qualified Code(s): K59.00 - Constipation, unspecified Urinary tract infection Qualifiers: Urinary tract infection type: acute cystitis Hematuria presence: with hematuria Qualified Code(s): N30.01 - Acute cystitis with hematuria Patient Disposition: Home, Self-Care Instructions: Constipation (ED), Urinary Tract Infection in Women (ED) Additional Instructions: You do not have a bowel obstruction, you were found to have a urinary tract infection in your considerably constipated. See home care instructions. Take the cephalexin as directed this is an antibiotic to treat your urinary tract infection, complete the course of the antibiotic. Use the Pyridium as needed for urinary pain and spasm. Use the ketorolac as needed for further pain, take this medication with food. Uses Zofran as needed for nausea. In regard to the constipation purchase [id number] Colace, take 4 tablets in the morning. Then use [id number] MiraLax, 4 to 5 times a day, until you begin having multiple large volume bowel movements. Moving forward, use the Colace 1 to 2 times a day, to help maintain regularity. You may intermittently require MiraLax if you develop symptoms of constipation. Follow up with your primary care provider as needed Prescriptions: New ketorolac 10 mg tablet 10 mg PO Q6H PRN (Reason: pain) Qty: 20 0RF Rx Instructions: maximum total duration of 5 days from all oral, intranasal, or parenteral formulations, patient received an IV dose of Toradol here in the emergency ondansetron 4 mg tablet,disintegrating 4 mg PO Q8H PRN (Reason: nausea and vomiting) Qty: 10 0RF cephalexin 500 mg capsule 500 mg PO Q12H Qty: 14 0RF phenazopyridine [Pyridium] 200 mg tablet 200 mg PO TID PRN (Reason: dysuria) Qty: 10 0RF No Action atorvastatin 10 mg tablet 10 mg PO BEDTIME sertraline 50 mg tablet 25 mg PO BEDTIME topiramate 50 mg tablet 50 mg PO BEDTIME Janumet 50-1,000 mg tablet 1 tab PO DAILY@1999 Print Language: Singaporean
--- OUTSIDE RECORDS SUMMARY | 2025-06-11 19:29 | XMS_ITS | Clinical Summary ---
Author Organization [facility] Address [address] [place] [address] Phone Care Team Providers Care [employer] Counsel[employer] Name Role Phone Physician, No Pcp Primary [...] EST - 04/25/2025 1:48 AM EST Emergency [facility] Emergency [address] [place] [address] Generalized abdominal pain (Primary Dx) Discharge Disposition: Left Against Medical Advice 03/23/2025 3:08 AM EDT - 03/23/2025 7:31 AM EDT Emergency [facility] Emergency [address] [place] [address] Zoe Godinez MD Acute periumbilical pain (Primary Dx); History of small bowel obstruction Discharge Disposition: Home or Self Care from Last 3 Months Surgical History Surgery Date Site/Laterality Comments HERNIA REPAIR Left PROCEDURE: HISTORICAL HERNIA REPAIR/ING TUBAL LIGATION 2008 PROCEDURE: HISTORICAL TUBAL LIGATION SECTION PROCEDURE: HISTORICAL DELIVERY; COMMENT: x 4: 1 fullterm Medical History Medical History Date Comments Bipolar disorder ([facility] V2 4, [facility] V28) 01/13/2016 DX:Bipolar disorder (HCC) Varicose veins of legs 01/13/2016 DX:Varico se veins of legs Depression DX:Depression; C OMMENT: [facility]- therapist in [place] Adrenal incidentaloma ([facility] V24) 02/09/2019 DX:Adrenal incidentaloma ([facility]) Diabetes mellitus (CMS/[facility] V 24, [facility] V28) Small bowel obstruction (CMS /[facility] V24, [facility] V28) Umbilical hernia Family History Medical History [...] 02/01/2024 01/04/2024 Depression Screening 06/13/2024 COVID-19 Vaccine ( - season) 2025 Influenza Vaccine (#1) 2025 [...] AND DIFFERENTIAL STAT 03/23/2025 2:33 AM EDT from Last 3 Months Results * Lactate, with reflex (04/24/2025 3:31 PM EST) Only the most recent of2 resultswithin the time period is included. [facility] LACTIC ACID 1.3 0.4 - 2.0 mmol/L LAB CHEMISTRY METHOD 04/24/2025 4:22 PM EST [facility] Blood Venous blood specimen / Unknown Venipuncture / Unknown 04/24/2025 3:31 PM EST 04/24/2025 3:48 PM EST Jeremy HERNANDEZ LAB BLOOD ORDERABLES Final Result [facility] [address] [place] [address], [place] [phone] * (ABNORMAL) CBC auto differential (04/24/2025 3:31 PM EST) Only the most recent of2 resultswithin the time period is included. [facility] WBC 8.6 4.8 - 10.8 K/mcL LAB HEMETOLOGY METHOD 04/24/2025 3:59 PM EST [facility] RBC 4.40 3.80 - 4.80 M/mcL LAB HEMETOLOGY METHOD 04/24/2025 3:59 PM EST [facility] Hemoglobin 13.6 11.5 - 16.0 g/dL LAB HEMETOLOGY METHOD 04/24/2025 3:59 PM EST [facility] Hematocrit 39.7 35.0 - 47.0 % LAB HEMETOLOGY METHOD 04/24/2025 3:59 PM [facility] MCV 89.8 79.0 - 98.0 FL LAB HEMETOLOGY METHOD 04/24/2025 3:59 PM [facility] MCH 30.8 27.0 - 32.0 pcg LAB HEMETOLOGY METHOD 04/24/2025 3:59 PM [facility] MCHC 34.3 32.0 - 37.0 g/dL LAB HEMETOLOGY METHOD 04/24/2025 3:59 PM [facility] RDW 12.2 11.0 - 15.0 % LAB HEMETOLOGY METHOD 04/24/2025 3:59 PM [facility] Platelets 261 130 - 400 K/mcL LAB HEMETOLOGY METHOD 04/24/2025 3:59 PM [facility] MPV 10.4 7.0 - 11.0 FL LAB HEMETOLOGY METHOD 04/24/2025 3:59 PM [facility] NRBC 0.0 <1.0 % LAB HEMETOLOGY METHOD 04/24/2025 3:59 PM [facility] NRBC Absolute 0.00 <0.10 K/mcL LAB HEMETOLOGY METHOD 04/24/2025 3:59 PM [facility] Neutrophils Relative 55.5 % LAB HEMETOLOGY METHOD 04/24/2025 3:59 PM [facility] Lymphocytes Relative 30.2 % LAB HEMETOLOGY METHOD 04/24/2025 3:59 PM [facility] Monocytes Relative 9.2 % LAB HEMETOLOGY METHOD 04/24/2025 3:59 PM [facility] Eosinophils Relative 1.3 % LAB HEMETOLOGY METHOD 04/24/2025 3:59 PM [facility] Basophils Relative 1.3 % LAB HEMETOLOGY METHOD 04/24/2025 3:59 PM EST [facility] Immature Granulocytes Relative 2.5 % LAB HEMETOLOGY METHOD 04/24/2025 3:59 PM EST [facility] Neutrophils Absolute 4.79 1.50 - 7.00 K/[facility] LAB HEMETOLOGY METHOD 04/24/2025 3:59 PM EST [facility] Lymphocytes Absolute 2.61 1.00 - 5.00 K/mcL LAB HEMETOLOGY METHOD 04/24/2025 3:59 PM EST [facility] Monocytes Absolute 0.79 0.20 - 1.00 K/mcL LAB HEMETOLOGY METHOD 04/24/2025 3:59 PM EST [facility] Eosinophils Absolute 0.11 0.00 - 0.50 K/[facility] LAB HEMETOLOGY METHOD 04/24/2025 3:59 PM EST [facility] Basophils Absolute 0.11 0.00 - 0.20 K/mcL LAB HEMETOLOGY METHOD 04/24/2025 3:59 PM EST [facility] Immature Granulocytes Absolute 0.22(H) 0.00 - 0.03 K/mcL LAB HEMETOLOGY METHOD 04/24/2025 3:59 PM EST [facility] Blood Venous blood specimen / Unknown Venipuncture / Unknown 04/24/2025 3:31 PM EST 04/24/2025 3:47 PM EST us Jeremy HERNANDEZ LAB BLOOD ORDERABLES Final Result [facility] [address] [place] [address], * Lipase (04/24/2025 3:31 PM EST) Only the most recent of2 resultswithin the time period is included. Lipase 26 13 - 75 unit/L LAB CHEMISTRY METHOD 04/24/2025 4:19 PM EST [facility] Blood Venous blood specimen / Unknown Venipuncture / Unknown 04/24/2025 3:31 PM EST 04/24/2025 3:47 PM EST us Jeremy HERNANDEZ LAB BLOOD ORDERABLES Final Result [facility] [address] [place] [address], [place] [phone] * (ABNORMAL) Comprehensive metabolic panel (04/24/2025 3:31 PM EST) Only the most recent of2 resultswithin the time period is included. Sodium 134 133 - 145 mmol/L LAB CHEMISTRY METHOD 04/24/2025 4:19 PM [facility] Potassium 4.2 3.5 - 5.5 mmol/L LAB CHEMISTRY METHOD 04/24/2025 4:19 PM [facility] Chloride 104 96 - 110 mmol/L LAB CHEMISTRY METHOD 04/24/2025 4:19 PM [facility] CO2 26 21 - 32 mmol/L LAB CHEMISTRY METHOD 04/24/2025 4:19 PM [facility] Anion Gap 4 3 - 11 LAB CHEMISTRY METHOD 04/24/2025 4:19 PM [facility] Glucose 161(H) 70 - 100 mg/dL LAB CHEMISTRY METHOD 04/24/2025 4:19 PM [facility] BUN 10 5 - 25 mg/dL LAB CHEMISTRY METHOD 04/24/2025 4:19 PM [facility] Creatinine 0.67 0.50 - 1.10 mg/dL LAB CHEMISTRY METHOD 04/24/2025 4:19 PM [facility] eGFR 109 >=60 mL/min/1. 73m2 LAB CHEMISTRY METHOD 04/24/2025 4:19 PM [facility] Comment:Calculation based on the Chronic Kidney Disease Epidemiology Collaboration (CKD-EPI) equation refit without adjustment for race. BUN/Creatinine Ratio 14.9 LAB CHEMISTRY METHOD 04/24/2025 4:19 PM [facility] Calcium 9.3 8.5 - 10.5 mg/dL LAB CHEMISTRY METHOD 04/24/2025 4:19 PM [facility] AST (SGOT) 5(L) 10 - 42 unit/L LAB CHEMISTRY METHOD 04/24/2025 4:19 PM [facility] ALT (SGPT) 21 10 - 60 unit/L LAB CHEMISTRY METHOD 04/24/2025 4:19 PM [facility] Alkaline Phosphatase 49 42 - 121 unit/L LAB CHEMISTRY METHOD 04/24/2025 4:19 PM [facility] Total Protein 7.5 6.0 - 8.0 g/dL LAB CHEMISTRY METHOD 04/24/2025 4:19 PM [facility] Albumin 3.8 3.2 - 5.0 g/dL LAB CHEMISTRY METHOD 04/24/2025 4:19 PM [facility] Total Bilirubin 0.3 0.0 - 1.4 mg/dL LAB CHEMISTRY METHOD 04/24/2025 4:19 PM [facility] Blood Venous blood specimen / Unknown Venipuncture / Unknown 04/24/2025 3:31 PM EST 04/24/2025 3:47 PM EST Jeremy HERNANDEZ LAB BLOOD ORDERABLES Final Result [facility] [address] [place] [address], * CT Abdomen Pelvis w Contrast (03/23/2025 5:52 AM EDT) Anatomical Region Laterality Modality Body Computed Tomogra [...] CT abdomen and pelvis with contrast Comparison: CT/KO/NV/SR - CT ABD PEL W CONTRAST - [...] CT abdomen and pelvis with contrast Comparison: CT/KO/NV/SR - CT ABD PEL W CONTRAST - [...] MD on 03/23/2025 06:49:23 Zoe Godinez MD IMG CT PROCEDURES Final Result * hCG, serum, qualitative (03/23/2025 4:57 AM EDT) [facility] hCG Qual Negative Negative 03/23/2025 5:22 AM [facility] Blood Venous blood specimen / Unknown Venipuncture / Unknown 03/23/2025 4:57 AM EDT 03/23/2025 5:00 AM EDT Zoe Godinez MD LAB BLOOD ORDERABLES Final Res ult [facility] [address] [place] [address], [place] [phone] * (ABNORMAL) Urinalysis with reflex microscopic and culture (03/23/2025 4:20 AM EDT) [facility] Specific [place] Urine 1.014 1.003 - 1.030 LAB URINALYSIS - AUTOMATED METHOD 03/23/2025 4:52 AM [facility] pH, Urine 6.5 5.0 - 8.0 pH LAB URINALYSIS - AUTOMATED METHOD 03/23/2025 4:52 AM [facility] Leukocytes, Urine Trace(A) Negative LAB URINALYSIS - AUTOMATED METHOD 03/23/2025 4:52 AM [facility] Nitrite, Urine Negative Negative LAB URINALYSIS - AUTOMATED METHOD 03/23/2025 4:52 AM [facility] Protein, Urine Negative <=Trace mg/dL LAB URINALYSIS - AUTOMATED METHOD 03/23/2025 4:52 AM [facility] Glucose, Urine Negative Negative mg/dL LAB URINALYSIS - AUTOMATED METHOD 03/23/2025 4:52 AM [facility] Ketones, Urine Negative Negative mg/dL LAB URINALYSIS - AUTOMATED METHOD 03/23/2025 4:52 AM [facility] Urobilinogen, Urine 1.0 0.2 - 1.0 mg/dL LAB URINALYSIS - AUTOMATED METHOD 03/23/2025 4:52 AM [facility] Bilirubin, Urine Negative Negative LAB URINALYSIS - AUTOMATED METHOD 03/23/2025 4:52 AM [facility] Blood, Urine Negative Negative LAB URINALYSIS - AUTOMATED METHOD 03/23/2025 4:52 AM [facility] RBC, Urine 1.2 0 - 4 /HPF LAB URINALYSIS - AUTOMATED METHOD 03/23/2025 4:52 AM [facility] WBC, Urine 2.5 0 - 4 /HPF LAB URINALYSIS - AUTOMATED METHOD 03/23/2025 4:52 AM [facility] Squamous Epithelial, Urine 21 0 - 60 /LPF LAB URINALYSIS - AUTOMATED METHOD 03/23/2025 4:52 AM [facility] Bacteria, Urine Negative Negative /HPF LAB URINALYSIS - AUTOMATED METHOD 03/23/2025 4:52 AM [facility] Hyaline Casts, Urine 1.2 0 - 3 /LPF LAB URINALYSIS - AUTOMATED METHOD 03/23/2025 4:52 AM [facility] Urine Urine specimen obtained by clean catch procedure / Unknown Non-blood Collection / Unknown 03/23/2025 4:20 AM EDT 03/23/2025 4:45 AM EDT us Zoe Godinez MD LAB URINE ORDERABLES Final Res ult [facility] [address] [place] [address], * Rubin urine culture tube (03/23/2025 4:20 AM EDT) Extra Tube Hold for add-ons. 03/23/2025 6:01 AM T [facility] Comment:Auto resulted. Urine Urine specimen obtained by clean catch procedure / Unknown Non-blood Collection / Unknown 03/23/2025 4:20 AM EDT 03/23/2025 4:44 AM EDT Zoe Godinez MD LAB URINE ORDERABLES Final Res ult [facility] [address] [place] [address], [place] [phone] * Culture urine (03/23/2025 4:20 AM EDT) Culture, Urine No growth 03/24/2025 11:36 AM EDT [facility] Urine Urine specimen obtained by clean catch procedure / Unknown Non-blood Collection / Unknown 03/23/2025 4:20 AM EDT 03/23/2025 4:52 AM EDT Zoe Godinez MD LAB MICROBIOLOGY - GENERAL ORD ERABLES Final Result Performing Organization Address [facility]/ZIP Co de Phone Number [facility] [address] [place] [address], [place] [phone] from Last 3 Months Insurance MEDICAID - [place] Care Teams [employer] Relationship Specialty Start Date End Date Physician, No Pcp PCP - General 03/23/25
--- OUTSIDE RECORDS SUMMARY | 2025-06-11 19:29 | XMS_ITS | Clinical Summary ---
Author Organization [employer] Address [address] [address] [place] [address] Care Team Providers Care Tree Trimming Supervisor Name Role Phone Unavailable Primary Care Provider Unavailabl e Encounters Date Type Department Care Team Description 04/29/2025 [facility] [address] [id number] Aria Chaudhry 04/26/2025 [facility] [address] [id number] Ranjana Roa from Last 3 [...]
[2025-06-11 19:41] LABS: MANUAL DIFF FLAG NO
[2025-06-11 19:46] LABS: Hematocrit 40.2 % (37.0-47.0); Hemoglobin 13.9 g/dl (12.0-16.0); Imm Gran Abs Auto 0.11 X10*3/uL (0.00-0.03); Imm Gran Pct Auto 1.3 % (0.0-0.4); Lymphocytes Absolute Auto 2.6 X10*3/uL (1.2-4.9); Mean Corpuscular HGB Conc 34.6 g/dl (31.0-35.0); Mean Corpuscular Hemoglobin 31.2 pg (27.0-33.0); Mean Corpuscular Volume 90.1 fL (80.0-98.0); NRBC Abs Auto 0.000 X10*3/uL (0.0-0.012); NRBC Pct Auto 0.0 /100WBC (0.0-0.2); Platelet Count 282 X10*3/uL (160-400); Red Blood Count 4.46 X10*6/uL (4.20-5.50); White Blood Count 8.7 X10*3/uL (4.8-10.8)
[2025-06-11 19:57] LABS: Alanine Aminotransferase 13 U/L (0-31); Albumin Level 4.7 g/dL (3.5-5.0); Alkaline Phosphatase 52 U/L (39-117); Anion Gap 10 (12-20); Aspartate Amino Transferase 18 U/L (5-31); Blood Urea Nitrogen 13 mg/dL (9-16); Calcium 9.4 mg/dL (8.4-10.2); Carbon Dioxide 26 mmol/L (22-29); Chloride 106 mmol/L (96-108); Creatinine Clr Calc Pharmacy 102.4; Estimated Glomerular Filt Rate > 60; Lipase 35 U/L (8-78); Magnesium 1.8 mg/dL (1.6-2.6); Potassium 3.9 mmol/L (3.3-5.1); Sodium 138 mmol/L (135-145); Total Protein 7.7 g/dL (6.5-8.0)
[2025-06-11 22:00] VITALS: BP 136/89; PULSE 68; RESP 17; TEMP 36.4; O2SAT 99
[2025-06-12 00:24] LABS: UPreg QC Valid YES
[2025-06-12 00:26] LABS: Appearance Urine Turbid; Glucose Urine UA Negative (Negative); PH 5.0 (5.0-9.0); Specific Gravity - Urine 1.020 (1.005-1.025); UMIC TRIGGER UACC YES
[2025-06-12 00:34] LABS: UACC Culture Trigger YES
[2025-06-12] MEDS: iohexoL 350 MG/ML 100 ML INFUS..BTL 85 ML IV (01:39)
[2025-06-12 03:41] VITALS: BP 137/76; PULSE 62; RESP 14; TEMP 36.6; O2SAT 98
[2025-06-12 03:44] VITALS: BP 137/76; PULSE 62; RESP 14; TEMP 36.6; O2SAT 98
== END 2025-06-12 03:45 | disposition home or self-care (01) ==
PROVIDERS: Physician Assistant; Physician Assistant Medical; Emergency Provider Emergency Medicine; PCP Dentist General Practice
DX: K59.00 Constipation, unspecified (principal); N30.01 Acute cystitis with hematuria; E11.9 Type 2 diabetes mellitus without complications; E78.00 Pure hypercholesterolemia, unspecified; F17.210 Nicotine dependence, cigarettes, uncomplicated; Z79.899 Other long term (current) drug therapy; Z79.02 Long term (current) use of antithrombotics/antiplatelets
CPT/HCPCS: 36415; 74018; 74177; 80048; 80076; 81001; 81025; 83605; 83690; 83735; 85025; 87040; 87086; 96361; 96365; 96375; 99285; J0696; J1885; J2270; J2405; Q9967

== ENCOUNTER → 2025-06-11 19:05 | Outpatient (BNV) | payer MEDICAID, SELFPAY | PROVIDERS: PCP Dentist General Practice; Visit Provider Radiology Diagnostic Radiology | DX: R10.9 Unspecified abdominal pain (principal) | CPT/HCPCS: 74018 ==

== ENCOUNTER → 2025-06-12 01:30 | Outpatient (BNV) | payer MEDICAID, SELFPAY | PROVIDERS: Emergency Provider Emergency Medicine; PCP Dentist General Practice; Visit Provider Radiology Diagnostic Radiology | DX: R16.0 Hepatomegaly, not elsewhere classified (principal); N20.0 Calculus of kidney; E27.9 Disorder of adrenal gland, unspecified | CPT/HCPCS: 74177 ==